=== PATIENT | male | born 1975 | race Caucasian/White ===

== ENCOUNTER → 2016-03-19 | Outpatient (CLI) | payer OTHER ==
[2016-03-19 14:04] LABS: ALBUMIN 3.8 GM/DL (3.2-5.2); ALBUMIN/GLOBULIN RATIO 1.41 (1.00-1.93); ALKALINE PHOSPHATASE 50 U/L (45-117); ALT/SGPT 27 U/L (12-78); ANION GAP 8 MEQ/L (8-16); AST/SGOT 9 U/L (15-37); BILIRUBIN,TOTAL 0.4 MG/DL (0.2-1.0); BLOOD UREA NITROGEN 10 MG/DL (7-18); CALCIUM LEVEL 9.1 MG/DL (8.5-10.1); CARBON DIOXIDE LEVEL 31 MEQ/L (21-32); CHLORIDE LEVEL 108 MEQ/L (98-107); CHOLESTEROL LEVEL 184 MG/DL (<200); CREATININE FOR GFR 0.89 MG/DL (0.70-1.30); GLOMERULAR FILTRATION RATE > 60.0 (>60); GLUCOSE, FASTING 89 MG/DL (70-105); POTASSIUM SERUM 4.5 MEQ/L (3.5-5.1); SODIUM LEVEL 147 MEQ/L (136-145); TOTAL PROTEIN 6.5 GM/DL (6.4-8.2); TRIGLYCERIDES LEVEL 147 MG/DL (<150)
[2016-03-19 14:05] LABS: BASO % 0.6 % (0.0-1.0); EOS # 0.6 K/mm3 (0.0-0.50); LYMPH # 1.5 K/mm3 (1.5-4.5); LYMPH % 24.5 % (24.0-44.0); MEAN CORPUSCULAR HEMOGLOBIN 33.8 pg (27.0-33.0); MEAN CORPUSCULAR HGB CONC 34.8 g/dl (32.0-36.5); MEAN CORPUSCULAR VOLUME 97.3 fl (80.0-96.0); MONO # 0.4 K/mm3 (0.0-0.8); MONO % 7.2 % (0.0-5.0); NEUTROPHILS # 3.4 K/mm3 (1.8-7.7); NEUTROPHILS % 55.1 % (36.0-66.0); RED CELL DISTRIBUTION WIDTH 12.2 % (11.5-14.5); WHITE BLOOD COUNT 6.1 K/mm3 (4.0-10.0)
== END ==
LOC: M LAB 13:08
PROVIDERS: ATTEND Nurse Practitioner Adult Health
DX: Z79.899 Other long term (current) drug therapy (principal)

== ENCOUNTER 2016-04-25 15:43 | Inpatient (IN) | payer OTHER ==
[~2016-04-25] VITALS: Ht 167.6 cm; Wt 85.5 kg
[2016-04-25] MEDS ORDERED: NICOTINE 21MG/24HR 1 EA TRANSDERMAL As Ordered ONE (16:32)
[2016-04-25 16:39] LABS: MEAN CORPUSCULAR HEMOGLOBIN 34.3 pg (27.0-33.0); MEAN CORPUSCULAR HGB CONC 34.9 g/dl (32.0-36.5); MEAN CORPUSCULAR VOLUME 98.1 fl (80.0-96.0); WHITE BLOOD COUNT 7.1 K/mm3 (4.0-10.0)
[2016-04-25 16:51] LABS: CONTROL LINE INT CTR LINE PRESENT; METHADONE URINE NEGATIVE (NEGATIVE); TRICYCLIC ANTIDEPRESS URINE POSITIVE (NEGATIVE)
[2016-04-25 17:11] LABS: ALBUMIN 3.9 GM/DL (3.2-5.2); ALBUMIN/GLOBULIN RATIO 1.26 (1.00-1.93); ALKALINE PHOSPHATASE 72 U/L (45-117); ALT/SGPT 33 U/L (12-78); ANION GAP 9 MEQ/L (8-16); AST/SGOT 16 U/L (15-37); BILIRUBIN,DIRECT < 0.1 MG/DL (0.0-0.2); BILIRUBIN,TOTAL 0.2 MG/DL (0.2-1.0); BLOOD UREA NITROGEN 16 MG/DL (7-18); CALCIUM LEVEL 8.9 MG/DL (8.5-10.1); CARBON DIOXIDE LEVEL 28 MEQ/L (21-32); CHLORIDE LEVEL 107 MEQ/L (98-107); CREATININE FOR GFR 1.01 MG/DL (0.70-1.30); GLOMERULAR FILTRATION RATE > 60.0 (>60); GLUCOSE, FASTING 119 MG/DL (70-105); POTASSIUM SERUM 3.8 MEQ/L (3.5-5.1); SODIUM LEVEL 144 MEQ/L (136-145)
[2016-04-25] MEDS ORDERED: QUET1TAB11 PO (17:40)
[2016-04-25] MEDS ORDERED: DIVA500T3 PO (17:40)
[2016-04-25] MEDS ORDERED: DRIS50002 PO (17:40)
[2016-04-25] MEDS ORDERED: SIMV20TA2 PO (17:40)
[2016-04-25] MEDS ORDERED: VIIB20TA PO (17:40)
--- NOTE | 2016-04-25 19:28 | EDDOCDS ---
Nurse's Notes [facility] Name: Toni Aranda Age: 40 yrs Sex: Male : 1975 Arrival Date: 04/25/2016 Time: 15:43 Bed [facility] Private MD: Lizzette Quarles Diagnosis: Suicidal ideations;Adjustment disorder with depressed mood Presentation: 04/25 15:49 Presenting complaint: Patient states: thoughts of hurting self over past couple weeks. jr Mental Health Triage Level: Level 2: The patient displays active suicidal ideations. Adult Sepsis Screening: The patient does not have new or worsening altered mentation. Patient's respiratory rate is less than 22. Systolic blood pressure is greater than 100. Patient has a qSOFA score of 0- Negative Sepsis Screen. Suicide/Homicide risk assessment- The patient admits to and/or has been reported to be having suicidal ideations. The patient reports that he/she has not been admitted to an inpatient mental health facility in the last 30 days. The patient reports that he/she does not have a recent or current history of substance abuse. The patient reports that he/she has no prior history of suicide attempt and/or organized plan. Status: Patient is not a real estate services coordinator or dependent. Transition of care: patient was not received from another setting of care. 15:49 Acuity: SARAH Level 3 [facility] 15:49 Method Of Arrival: Walkin/Carried/Asstd jr Triage Assessment: 15:52 General: Appears in no apparent distress, Behavior is appropriate for age. Pain: Denies jjr pain. HIV screening NA for this visit Offered previously. Historical: - Allergies: no known allergies; - Home Meds: 1. Viibryd 20 mg oral tab once daily 2. divalproex 500 mg oral Tb24 2 tabs nightly 3. quetiapine 400 mg oral tab nightly 4. simvastatin 20 mg Oral tab 1 tab once daily 5. Vitamin D Oral 50,000 unit weekly - PMHx: Hypercholesterolemia; Depression; mood d/o; - PSHx: none; - Social history: Smoking status: Patient uses tobacco products, current every day smoker. No barriers to communication noted, The patient speaks fluent Telugu. - Family history: Not pertinent. - : The pt / caregiver states he / she is not on anticoagulants. Home medication list is obtained from pill bottles. - Exposure Risk Screening:: None identified. Screenin:07 Screening information is obtained from the patient. Fall risk: No risks identified. jmb Assistance ADL's: requires no assistance with activities of daily living. Abuse/DV Screen: The patient / caregiver reports he/she is: not in a situation that causes fear, pain or injury. Nutritional screening: No deficits noted. home support is adequate. 18:23 Advance Directives: Currently, there is no health care proxy. There is no active DNR jmb order. There is no living will. There is no Power of Frog Catcher. Assessment: 16:07 General: Appears in no apparent distress, Behavior is appropriate for age, cooperative, jmb Patient changed into U clothing. Patient reports that he has a desire to self harm through drinking a lot of alcohol and taking pills to where he falls asleep and does not wake up. Patient admits to alcohol use last evening of a six pack of beer. Patient denies illegal drug use, reports that if he had the money he would love to smoke weed. Patient admits to drinking 4-5 cups of coffee daily. Patient states that his mother just March 18 and since then he feels that "the devil has made a major impact on his life to bring everything down hill". . Pain: Denies pain. Neurological: Level of Consciousness is awake, alert, obeys commands, Oriented to person, place, time, Speech is normal, Facial symmetry appears normal, Facial symmetry: tongue is midline. Cardiovascular: Capillary refill < 3 seconds Heart tones S1 S2 present Pulses are all present. Rhythm is regular. Respiratory: Airway is patent Respiratory effort is even, unlabored, Respiratory pattern is regular, symmetrical, Breath sounds are clear bilaterally. GI: Abdomen is obese, Bowel sounds present X 4 quads. Abd is soft and non tender X 4 quads. Derm: Skin is pink, warm & dry. Musculoskeletal: Range of motion intact in all extremities. 16:07 General: Patient reports having history of admission to [facility] when he was 18 years old [place] and an admission to another inpatient facility in 2011. Patient reports being seen outpatient by [facility] currently that he feels is not helping him. . 17:06 General: Appears in no apparent distress, comfortable, Behavior is appropriate for age, jmb cooperative, Patient sitting in room on stretcher with friend at bedside. No voiced complaints at this time. Nicotine patch applied to right upper arm. . Neurological: Level of Consciousness is awake, alert, obeys commands, Oriented to person, place, time. Respiratory: Airway is patent Respiratory effort is even, unlabored, Respiratory pattern is regular, symmetrical. 17:31 General: Appears in no apparent distress, comfortable, Behavior is appropriate for age, jmb cooperative, Patient laying on stretcher, vital signs obtained. Patient denies discomfort at this time. . Neurological: Level of Consciousness is awake, alert, obeys commands, Oriented to person, place, time, Speech is normal, Facial symmetry appears normal, Facial symmetry: tongue is midline. Cardiovascular: Capillary refill < 3 seconds Heart tones S1 S2 present Pulses are all present. Rhythm is regular. Respiratory: Airway is patent Respiratory effort is even, unlabored, Respiratory pattern is regular, symmetrical. GI: Abdomen is obese, Bowel sounds present X 4 quads. Abd is soft and non tender X 4 quads. Derm: Skin is pink, warm & dry. Musculoskeletal: Range of motion intact in all extremities. 18:23 General: Appears in no apparent distress, comfortable, Behavior is appropriate for age, jmb cooperative, Patient just received meal, finished eating dinner. Currently laying on stretcher, appears comfortable. Patient denies discomfort at this time. . Pain: Denies pain. Neurological: Level of Consciousness is awake, alert, obeys commands, Oriented to person, place, time, Speech is normal. Respiratory: Airway is patent Respiratory effort is even, unlabored, Respiratory pattern is regular, agonal. Derm: Skin is pink, warm & dry. 19:25 General: Appears in no apparent distress, comfortable, Behavior is appropriate for age, mlc cooperative, pleasant. Pain: Denies pain. Neurological: Level of Consciousness is awake, alert, Oriented to person, place, time. Cardiovascular: Capillary refill < 3 seconds Heart tones S1 S2 present. Respiratory: Airway is patent Respiratory effort is even, unlabored, Respiratory pattern is regular, Breath sounds are clear bilaterally. Derm: Skin is pink, warm & dry. Mental Health Eval: 18:14 Mental health consult is initiated at 18:00. Status: The patient is not a rb real estate services coordinator or dependent. [facility] Behavioral Health: The patient is not an established patient of [facility] Behavioral Health. Referral Information: Evaluation referral is generated by Tanja Madrigal. 18:22 Referral Information: The patient was referred for evaluation because Pt presented to ED after texting people stating devil is out to get him, making +SI statements with plan to overdose and +ETOH. Pt reported stressors as Mother 03/2016, GF of 1yr 4 mo broke up with him 04/12/16 very unexpectedly, [facility] forcing Pt to return to work 4 hours a day/5 days a week. Pt is worried he will "f... it up and will lose my place to live". Pt stated cannot get out of the house on time, "Will freeze up, get nervous, can't get motivated". Pt reported stressing over the community garden. According to Pt, have not cleaned or picked up apartment. Pt reported "get nervous over everything". "Have not cleaned or picked up my apartment". "Feels like the devil is out to get me again". "nothing makes me happy". . Subjective: The patients chief complaint is depressed, +SI with plan to overdose on medications and +ETOH.. Delusions are denied. Patient's mood is anxious, dysphoric, hopeless, Hallucinations are denied. Mental Health history: anxiety, depression, schizophrenia, OCD. Mental Health Admissions: [facility] at age 18, and [facility] in [place]- [place]. Current Outpatient Mental Health Services: Psychiatrist / Agency: Sonya Sands \\[place]\\ Jennifer for medication management. Therapist / Agency: Paul Rodriguez . Community Health Specialist / Agency: Annalise Mccracken; ACR Security Test Engineer. Current living environment is The patient currently lives self. Patient presents to Emergency Department with the following symptoms within the past 2 weeks: antisocial behavior, anxiety, depressed mood, feelings of helplessness/hopelessness, non-compliance, paranoia, sleep disturbance - insomnia, suicidal ideation with plan for pills. Substance abuse: Pt denies. Mental status exam: Patients appearance is disheveled Patient's behavior is cooperative, minimally responsive Speech is slow. Affect is flat. Mood is anxious. dysphoric. Hallucinations are denied. Appetite is normal. Memory is good. Energy level is lethargic. Content of thought is depressive. , Thought process is tangential. Cognitive level is oriented to person, place, time and situation Patient's insight is poor. Judgement is poor. Rapport with interviewer is good. Suicidal Ideation present with a plan to kill self by pills. Homicidal ideation is not present. Disposition: Medically cleared for disposition by Clem ONEAL Psychiatric Consult is performed by phone with Dr Sanchez Busby MD. [facility] Admission Criteria: The patient is experiencing suicidal ideation. The patient displays symptoms of severe psychiatric disorder resulting in disordered behavior and significant interference with his / her ability to maintain self care. Severe Anxiety. Psychomotor Retardation. The patient requires continuous observation and/or control to protect self, others or property. The patient requires administration and monitoring of psychoactive medications by skilled medical providers due to the side effects of the psychoactive medications or significant dosage adjustments. Legal Status: Patient's legal status will be Emergency admission: . [place] Safe Act: [place] Safe Act is applicable to this patient. The patient poses a risk to self or other and the Nursing Electrophysiologist has been notified. He/She will enter the patient's data. DSM-V Differential Diagnosis: Schizoaffective Disorder (F25.0) depressive type (F25.1). Pt states preferred pharmacy is: [facility] 18:44 Narrative: Pt legals placed with his belongings. Awaiting: transfer to [facility]. rb Vital Signs: 15:44 BP 161 / 94; Pulse 104; Resp 18; Temp 98.3(O); Pulse Ox 96% on R/A; Weight 86.18 kg; dem1 Height 5 ft. 6 in. (167.64 cm); Pain 0/10; 17:31 BP 133 / 79; Pulse 96; Resp 18; Temp 98.2(O); Pulse Ox 96% on R/A; Pain 0/10; jmb 19:11 BP 134 / 83; Pulse 104; Resp 18; Temp 97.8; Pulse Ox 94% ; Pain 0/10; mas 15:44 Body Mass Index 30.67 (86.18 kg, 167.64 cm) dem1 Vitals: 15:44 Log In Time: April 25, 2016 at 15:42. RN notified that patient meets Red Flag dem1 criteria. ED Course: 15:44 Patient visited by Zhao Yates. dem1 15:44 Lizzette Quarles is Private Physician. dem1 15:44 Patient moved to Waiting dem1 15:52 Triage Initiated jjr 15:52 [address] 16:00 Accompanied by Friend, Patient has correct armband on for positive identification. tmm1 Placed in gown. Placed in psych safe attire. Bed in low position. Side rails up X 1. Security observing. Property removed, inventory done, secured in belongings bag- placed in locked locker. Door closed. Noise minimized. Visitors limited. Psych Safety Check: Location: Psych Room. Visual Assessment: Cooperative. 16:07 Clem Dolan FNP is [facility]. ke 16:07 Patient visited by Clem Dolan FNP. ke 16:07 Patient visited by Clem Dolan FNP. ke 16:07 The patient / caregiver is instructed regarding the plan of care and ED course. jmb 16:07 No IV's were initiated during this patient's visit. No procedures done that require jmb assistance. 16:11 Patient visited by Wagner Maguire RN. jmb 16:15 Psych Safety Check: Location: Psych Room. Visual Assessment: Cooperative. tmm1 16:30 Psych Safety Check: Location: Psych Room. Visual Assessment: Cooperative. tmm1 16:31 Patient visited by Joleen Yu PCA. tmm1 16:32 Acetaminophen Level Sent. jmb 16:32 Basic Metabolic Profile Sent. jmb 16:32 Complete Blood Count Sent. jmb 16:32 Drug Eval Toxicology ED Only Sent. jmb 16:32 Ethyl Alcohol (ethanol) Sent. jmb 16:32 Liver Profile Sent. jmb 16:32 Salicylate Level Sent. jmb 16:32 Thyroid Stimulating Hormone Sent. jmb 16:45 Psych Safety Check: Location: Psych Room. Visual Assessment: Cooperative. tmm1 16:52 Patient visited by Clem Dolan FNP. ke 17:05 [facility] Payment Agreement was scanned into [employer] and attached to record. zo 17:07 Patient visited by Wagner Maguire RN. jmb 17:21 Psych Safety Check: Location: Psych Room. Visual Assessment: Cooperative. tmm1 17:26 Sanchez Busby MD is Hospitalizing Provider. ke 17:33 Patient visited by Wagner Maguire RN. jmb 17:34 Patient visited by Joleen Yu PCA. tmm1 17:34 Psych Safety Check: Location: Psych Room. Visual Assessment: Cooperative. tmm1 17:54 Patient visited by Joleen Yu PCA. tmm1 17:54 Psych Safety Check: Location: Psych Room. Visual Assessment: Cooperative. tmm1 18:02 Patient visited by Joleen Yu PCA. tmm1 18:02 Psych Safety Check: Location: Psych Room. Visual Assessment: Cooperative. tmm1 18:16 Psych Safety Check: Location: Psych Room. Visual Assessment: Cooperative. tmm1 18:17 Patient visited by Joleen Yu PCA. tmm1 18:24 Patient visited by Wagner Maguire RN. jmb 18:31 Patient visited by Joleen Yu PCA. tmm1 18:31 Psych Safety Check: Location: Psych Room. Visual Assessment: Cooperative. tmm1 18:32 PSA Outpatient Referrals was scanned into [employer] and attached to record. cs 18:47 Patient visited by Pedro Rosario. mas 19:05 Patient visited by Pedro Rosario. mas 19:11 [facility] Legal paperwork was scanned into [employer] and attached to record. cs 19:15 Patient visited by Pedro Rosario. [facility] Administered Medications: 16:36 Drug: Nicotine 1 applic [nicotine 21 mg/24 hr daily transdermal patch (1 patches)] [place] Route: Transdermal; Site: right upper arm; 18:25 Follow up: Response: No Adverse Reaction [place] Attachments: 19:11 [facility] Legal paperwork cs Order Results: Lab Order: Acetaminophen Level; SPEC'M 04/25/16 16:29 Test: ACETAMINOPHEN LEVEL; Value: < 2.0; Range: 10.0-30.0; Abnormal: Below low normal; Units: UG/ML; Status: F Lab Order: Basic Metabolic Profile; SPEC'M 04/25/16 16:29 Test: GLUCOSE, FASTING; Value: 119; Range: 70-105; Abnormal: Above high normal; Units: MG/DL; Status: F Test: BLOOD UREA NITROGEN; Value: 16; Range: 7-18; Units: MG/DL; Status: F Test: CREATININE FOR GFR; Value: 1.01; Range: 0.70-1.30; Units: MG/DL; Status: F Test: GLOMERULAR FILTRATION RATE; Value: > 60.0; Range: >60; Status: F Test: SODIUM LEVEL; Value: 144; Range: 136-145; Units: MEQ/L; Status: F Test: POTASSIUM SERUM; Value: 3.8; Range: 3.5-5.1; Units: MEQ/L; Status: F Test: CHLORIDE LEVEL; Value: 107; Range: 98-107; Units: MEQ/L; Status: F Test: CARBON DIOXIDE LEVEL; Value: 28; Range: 21-32; Units: MEQ/L; Status: F Test: ANION GAP; Value: 9; Range: 8-16; Units: MEQ/L; Status: F Test: CALCIUM LEVEL; Value: 8.9; Range: 8.5-10.1; Units: MG/DL; Status: F Test Note: ; Units are mL/min/1.73 m2 Chronic Kidney Disease Staging per NKF: Stage I & II GFR >=60 Normal to Mildly Decreased Stage III GFR 30-59 Moderately Decreased Stage IV GFR 15-29 Severely Decreased Stage V GFR <15 Very Little GFR Left ESRD GFR <15 on POWER SHOVEL OPERATOR Lab Order: Complete Blood Count; [facility] 04/25/16 16:29 Test: WHITE BLOOD COUNT; Value: 7.1; Range: 4.0-10.0; Units: K/mm3; Status: F Test: RED BLOOD COUNT; Value: 4.21; Range: 4.30-6.10; Abnormal: Below low normal; Units: M/mm3; Status: F Test: HEMOGLOBIN; Value: 14.4; Range: 14.0-18.0; Units: g/dl; Status: F Test: HEMATOCRIT; Value: 41.4; Range: 42.0-52.0; Abnormal: Below low normal; Units: %; Status: F Test: MEAN CORPUSCULAR VOLUME; Value: 98.1; Range: 80.0-96.0; Abnormal: Above high normal; Units: fl; Status: F Test: MEAN CORPUSCULAR HEMOGLOBIN; Value: 34.3; Range: 27.0-33.0; Abnormal: Above high normal; Units: pg; Status: F Test: MEAN CORPUSCULAR HGB CONC; Value: 34.9; Range: 32.0-36.5; Units: g/dl; Status: F Test: RED CELL DISTRIBUTION WIDTH; Value: 13.0; Range: 11.5-14.5; Units: %; Status: F Test: PLATELET COUNT, AUTOMATED; Value: 243; Range: 150-450; Units: k/mm3; Status: F Lab Order: Drug Eval Toxicology ED Only; SPEC'M 04/25/16 16:29 Test: AMPHETAMINES LEVEL URINE; Value: NEGATIVE; Range: NEGATIVE; Status: F Test: BARBITURATES URINE; Value: NEGATIVE; Range: NEGATIVE; Status: F Test: BENZODIAZEPINES URINE; Value: NEGATIVE; Range: NEGATIVE; Status: F Test: CANNABINOIDS URINE; Value: NEGATIVE; Range: NEGATIVE; Status: F Test: COCAINE METABOLITE URINE; Value: NEGATIVE; Range: NEGATIVE; Status: F Test: METHADONE URINE; Value: NEGATIVE; Range: NEGATIVE; Status: F Test: OPIATES URINE; Value: NEGATIVE; Range: NEGATIVE; Status: F Test: TRICYCLIC ANTIDEPRESS URINE; Value: POSITIVE; Range: NEGATIVE; Abnormal: Above high normal; Status: F Test Note: ; ALL PRESUMPTIVE POSITIVE FINDINGS ARE UNCONFIRMED NORMAL VALUES THRESHOLD IN NG/ML AMPHETAMINES 1000 METHAMPHETAMINES 1000 BARBITURATES 300 BENZODIAZEPINES 300 CANNABINOIDS (THC) 50 COCAINE METABOLITE 300 METHADONE 300 OPIATES 300 PHENCYCLIDINE 25 TRICYCLIC ANTIDEPRESSANTS 1000 RESULTS ARE FOR MEDICAL PURPOSES ONLY. ALL URINE SPECIMENS WILL BE SAVED FOR 3 DAYS. IF CONFIRMATION OF A PRESUMPTIVE POSTIVE SCREEN RESULT IS DESIRED, CALL CHEMISTRY ([phone]) AND REQUEST URINE TO BE SENT TO REFERENCE LAB. FOR A LIST OF CLOSELY RELATED COMPOUNDS PLEASE CALL THE LAB. Lab Order: Ethyl Alcohol (ethanol); SPEC'M 04/25/16 16:29 Test: ETHYL ALCOHOL (ETHANOL); Value: < 0.003; Range: 0.000-0.010; Units: %; Status: F Lab Order: Liver Profile; SPEC'M 04/25/16 16:29 Test: AST/SGOT; Value: 16; Range: 15-37; Units: U/L; Status: F Test: ALT/SGPT; Value: 33; Range: 12-78; Units: U/L; Status: F Test: ALKALINE PHOSPHATASE; Value: 72; Range: 45-117; Units: U/L; Status: F Test: BILIRUBIN,TOTAL; Value: 0.2; Range: 0.2-1.0; Units: MG/DL; Status: F Test: BILIRUBIN,DIRECT; Value: < 0.1; Range: 0.0-0.2; Units: MG/DL; Status: F Test: TOTAL PROTEIN; Value: 7.0; Range: 6.4-8.2; Units: GM/DL; Status: F Test: ALBUMIN; Value: 3.9; Range: 3.2-5.2; Units: GM/DL; Status: F Test: ALBUMIN/GLOBULIN RATIO; Value: 1.26; Range: 1.00-1.93; Status: F Lab Order: Salicylate Level; SPEC'M 04/25/16 16:29 Test: SALICYLATE LEVEL; Value: 3.7; Range: 5.0-30.0; Abnormal: Below low normal; Units: MG/DL; Status: F Lab Order: Thyroid Stimulating Hormone; SPEC'M 04/25/16 16:29 Test: THYROID STIMULATING HORMONE; Value: 0.157; Range: 0.358-3.740; Abnormal: Below low normal; Units: uIU/ML; Status: F Outcome: 17:27 Decision to Hospitalize by Provider. 19:25 Discharge Assessment: Patient awake, alert and oriented x 3. No cognitive and/or mlc functional deficits noted. Patient verbalized understanding of disposition instructions. patient administered narcotics - no. The following High Risk Discharge criteria are identified: None. Admitted to Psych accompanied by tech, via wheelchair, with chart. Condition: stable. No special radiology studies were completed. Property given to [facility] staff. 19:[address] [facility] Signatures: Ericka Roblero, PSA PSA rb Edwin Jain, PSA PSA Clem Narayan, MATERIAL ANALYST MATERIAL ANALYST Brenda Stringer Jessica, RN RN Pedro Crowe Demeishia dem1 McLear, Joleen, SUPERVISOR MECHANIC BOILERMAKING SUPERVISOR MECHANIC BOILERMAKING tmm1 Wagner Maguire,SAL RN Myla Weber RN RN mlc Corrections: (The following items were deleted from the chart) 17:33 17:06 Neurological: Level of Consciousness is awake, alert, listless, Oriented to jmb person, place, time, jmb MTDD
--- NOTE | 2016-04-25 19:28 | EDDOCDS ---
Physician Documentation [facility] Name: Toni Aranda Age: 40 yrs Sex: Male : 1975 Arrival Date: 04/25/2016 Time: 15:43 Bed BHU1 Private MD: Lizzette Quarles Disposition: 04/25/16 17:27 Hospitalization ordered by Sanchez Busby for Inpatient Admission. Preliminary diagnosis are Suicidal ideations, Adjustment disorder with depressed mood. - Bed requested for Admit. - Status is Inpatient Admission. mlc - Condition is Stable. - Problem is an ongoing problem. - Symptoms have worsened. Historical: - Allergies: no known allergies; - Home Meds: 1. Viibryd 20 mg oral tab once daily 2. divalproex 500 mg oral Tb24 2 tabs nightly 3. quetiapine 400 mg oral tab nightly 4. simvastatin 20 mg Oral tab 1 tab once daily 5. Vitamin D Oral 50,000 unit weekly - PMHx: Hypercholesterolemia; Depression; mood d/o; - PSHx: none; - Social history: Smoking status: Patient uses tobacco products, current every day smoker. No barriers to communication noted, The patient speaks fluent Bahamian. - Family history: Not pertinent. - : The pt / caregiver states he / she is not on anticoagulants. Home medication list is obtained from pill bottles. - Exposure Risk Screening:: None identified. Vital Signs: 04/25 15:44 BP 161 / 94; Pulse 104; Resp 18; Temp 98.3(O); Pulse Ox 96% on R/A; Weight 86.18 kg / dem1 189.99 lbs; Height 5 ft. 6 in. (167.64 cm); Pain 0/10; 17:31 BP 133 / 79; Pulse 96; Resp 18; Temp 98.2(O); Pulse Ox 96% on R/A; Pain 0/10; jmb 19:11 BP 134 / 83; Pulse 104; Resp 18; Temp 97.8; Pulse Ox 94% ; Pain 0/10; mas 15:44 Body Mass Index 30.67 (86.18 kg, 167.64 cm) dem1 MDM: 16:17 Consult PFS/PSA/Tray Delivery Aide ordered. richardson 16:17 Consult PFS/PSA/Tray Delivery Aide: Patient's case requires discussion with on-call richardson Psychiatrist ordered. 16:17 PSA/PFS to call Nursing Insurance Business Analyst, to [place] data [place] if patient ke involuntarily admitted or transferred for SI or HI ordered. 16:17 Confirm accurate psychiatric medication list and times of last dosage ordered. ke 16:17 Detain Pt Until Medically/PFS Cleared ordered. ke 16:17 Nicotine Patch 21 mg/24 hr 1 applic Transdermal once ordered. ke 16:18 Acetaminophen Level Ordered. EDMS 16:18 Basic Metabolic Profile Ordered. EDMS 16:18 Complete Blood Count Ordered. EDMS 16:18 Drug Eval Toxicology ED Only Ordered. EDMS 16:18 Ethyl Alcohol (ethanol) Ordered. EDMS 16:18 Liver Profile Ordered. EDMS 16:18 Salicylate Level Ordered. EDMS 16:18 Thyroid Stimulating Hormone Ordered. EDMS 16:19 REGULAR+DIET ordered. EDMS 17:03 Financial registration complete. zo 17:05 [facility] Payment Agreement was scanned into [employer] and attached to record. zo 17:08 Consult PFS/PSA/Tray Delivery Aide complete. rb 17:25 Acetaminophen Level Reviewed. ke 17:25 Basic Metabolic Profile Reviewed. ke 17:25 Complete Blood Count Reviewed. ke 17:25 Drug Eval Toxicology ED Only Reviewed. ke 17:25 Salicylate Level Reviewed. ke 17:25 Thyroid Stimulating Hormone Reviewed. ke 17:25 Ethyl Alcohol (ethanol) Reviewed. ke 17:25 Liver Profile Reviewed. ke 17:28 BED REQUEST+ADM ordered. EDMS 18:28 Admit to [facility]: ordered. EDMS 18:32 PSA Outpatient Referrals was scanned into [employer] and attached to record. cs 18:45 Consult PFS/PSA/Tray Delivery Aide: Patient's case requires discussion with on-call rb Psychiatrist complete. 18:46 PSA/PFS to call Nursing Insurance Business Analyst, to enter [place] if patient rb involuntarily admitted or transferred for SI or HI complete. 19:11 [facility] Legal paperwork was scanned into [employer] and attached to record. cs Administered Medications: 16:36 Drug: Nicotine 1 applic [nicotine 21 mg/24 hr daily transdermal patch (1 patches)] delroy Route: Transdermal; Site: right upper arm; 18:25 Follow up: Response: No Adverse Reaction jmb Signatures: Dispatcher [employer] EDMS Ericka Roblero, LILIANE PSA rb Edwin Jain, PSA PSA cs Clem Dolan, VIRTUALIZATION CONSULTANT VIRTUALIZATION CONSULTANT Brenda Stringer Jessica, RN RN Wagner Barnard RN RN jmb Booth, Mandy, RN RN mlc The chart was reviewed and I authenticate all verbal orders and agree with the evaluation and treatment provided.Attachments: 17:05 [facility] Payment Agreement zo MTDD
[2016-04-25 19:39] VITALS: BP 136/79
[2016-04-25] MEDS ORDERED: MAALOX 30 ML SUSP *UDC PO PRN (21:00)
[2016-04-25] MEDS ORDERED: traZODone 50 MG TAB PO PRN (21:00)
[2016-04-25] MEDS ORDERED: MOM 30ML SUSPENSION UDC PO PRN (21:00)
[2016-04-26 06:30] VITALS: BP 127/85
[2016-04-26] MEDS: NICOTINE 21MG/24HR 1 EA TRANSDERMAL TD SCH (09:05)
[2016-04-26 18:07] VITALS: BP 124/92
--- NOTE | 2016-04-26 19:17 | HPEPDOC ---
[facility] History & Physical History and Physical DATE OF ADMISSION: Apr 25, 2016 at 19:32 CHIEF COMPLAINT: worsening depression and SI x 2 weeks. HISTORY OF THE PRESENT ILLNESS: Patient is a 40-year-old male with PPHx significant for Schizoaffective d/o presents to [facility] with >2 weeks of reported worsening depressive symptoms associated with SI and plan to OD on EtOH. Patient reports none compliance with Seroquel 400mg his current antipsychotic. Patient reports multiple current psychosocial stressors. He reports a triggering stressor being the of his mother in 03/2016. Patient also identifies his job. 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 He reports no having the "authority to do things, I have to ask Susy". He reports Susy is very hard to get with and this is stressing. Patient puts great pride in this community [employer]. He reports sending multiple emails to administrators for the [employer], with no response. Patient reports this causing increased anxiety and depression. Patient reports this caused relational discord with his current GF. Patient reports decreased motivation, decreased attention to hygiene. In the ED, patient is noted to have expressed SI with plan to OD on alcohol. He denies abuse of alcohol and denies alcohol intoxication played a role in things recent symptoms On interview, patient is calm and cooperative. Patient reports no current SI and reports his mood as "good". Patient is bizarre in his description of stressors. He is superficially bright in affect. Patient reports paranoid ideations that his administrators are "out to get him". Patient reports grandiose delusions of being able to do "magic", and reports he's kept that hidden from his volunteering work supervisors. He denies AH/VH. He denies SI/HI. Patient reports no med s/e's on current dose of Seroquel. He reports good sleep last night. Patient reports good appetite. He denies N/V/C/D. Urination and BM are wnl. He is open to initiation of a new antipsychotic. PAST PSYCHIATRIC HISTORY: Prior Psychiatric Disorder: Schizoaffective d/o, Bipolar type. Outpatient Treatment: [facility], last 04/2013. Suicidal/Self injurious: Denies suicidal behavior. ALLERGIES: No known allergies PRIMARY CARE PROVIDER: Lizzette Quarles, nurse practitioner. SOCIAL HISTORY: He is . Ethyl alcohol (EtOH): He drinks beer 2-3 times a month. Smokes two packs of cigarettes per day. Recreational drug use: None. PAST MEDICAL HISTORY: 1. Hypercholesterolemia. 2. Depression. 3. Mood disorder. PAST SURGICAL HISTORY: Negative. HOME MEDICATIONS: - Depakote 1000 mg by mouth nightly - Seroquel 400 mg by mouth nightly - simvastatin 20 mg by mouth nightly - Viibryd 20 mg by mouth nightly - vitamin D 50,000 units one tablet per week SOCIAL HISTORY: -Recently released from shelter. Reports charge being criminal mischief, patient restrictive on details of this shelter term/charge. -Patient reports mother recently yet family did not tell him. -He was not allowed to stay with step father for . -Long hx of relational discord with his step father. - in 2011, ex- and a daughter in [place], no contact. LABORATORY DATA: Please see below. MENTAL STATUS EXAMINATION: Patient is a 40-year old male, who is pleasant, cooperative, well kempt, moderately built in NAD. Speech: Is normal in rate, volume, and articulation, and is [coherent] and [ spontaneous]. Language skills are [intact]. Thought processes: delusional, tangential Thought content: irrational/logical/illogical/tangential/paranoid Description of abnormal or psychotic thoughts: delusions, no preoccupation with violence, no homicidal or suicidal ideation, but obsessions with his community garden]. Judgment: poor Insight: poor Orientation to [time, place and person]. Recent and remote memory: [intact] Attention span and concentration: good. Language: [Normal]. Fund of knowledge: [adequate]. Mood: expansive/anxious/restrictive. Affect: anxious/hypomania. PROBLEM LIST: 1. perceptual disturbance 2. depression 3. anxiety 4. SI with plan ASSESSMENT: Schizoaffective d/o, bipolar type, MRE manic INITIAL TREATMENT PLAN: 1. Patient was admitted on a [9.39] legal status. 2. Complete history was obtained. 3. With patients permission, family will be contacted and database will be expanded. 4. Patients medication regimen will be reviewed and changed accordingly. 5. Patient will be provided with protected environment. 6. Patient will be treated with individual, group, and milieu therapies. 7. Patient will receive supportive psych-education. 8. Discharge planning will commence immediately. 9. Outpatient follow-up treatment will be strongly recommended. ESTIMATED LENGTH OF STAY: [5]-[7] DAYS. TIME SPENT COUNSELING AND COORDINATING INITIAL CARE: [60] minutes. Medications Scheduled (Viibryd) 20 Mg Tab 20 MG PO QHS (Reported) Divalproex Sodium (Divalproex Sodium Dr) 500 Mg Tab 1,000 MG PO QHS (Reported) Quetiapine Fumerate (Quetiapine Fumarate) 400 Mg Tab 400 MG PO QHS (Reported) Simvastatin (Simvastatin) 20 Mg Tab 20 MG PO QHS (Reported) Vitamin D (Drisdol) 50,000 Unit Cap 50,000 UNIT PO QWEEK (Reported) NO SPECIFIC DAY - STATES HE TOOK A FEW DAYS AGO Allergies Coded Allergies: No Known Allergies (Unverified , 04/25/16) ELOINA TORRES MD Apr 26, 2016 19:17
[2016-04-26] MEDS: DIVALPROEX 250 MG TAB PO SCH (21:17)
[2016-04-26] MEDS: SIMVASTATIN 20 MG TAB PO SCH (21:17)
[2016-04-26] MEDS: QUEtiapine FUMARATE 100 MG TAB PO SCH (21:18)
[2016-04-27 06:37] VITALS: BP 128/71
[2016-04-27] MEDS: NICOTINE 21MG/24HR 1 EA TRANSDERMAL TD SCH (09:05)
--- NOTE | 2016-04-27 14:18 | IPNPDOC ---
[facility] Progress Note Progress Note DATE OF SERVICE: 04/27/16 Subjective: Patient continues to express grandiose and paranoid ideations. He is opposed to increase in his Seroquel as his home dose caused SOB and waking out of his sleep feeling SOB. Patient denies SI/HI and continues to be superficially bright in affect. He expresses on going significant anxiety. Sleep and appetite are fair. Objective: VITAL SIGNS: See below. CURRENT MEDICATIONS: See below. MENTAL STATUS EXAMINATION: Patient is a 40-year old male, who is pleasant, cooperative, well kempt, moderately built in NAD. Speech: Is normal in rate, volume, and articulation, and is [coherent] and [ spontaneous]. Language skills are [intact]. Thought processes: delusional, tangential Thought content: irrational/logical/illogical/tangential/paranoid Description of abnormal or psychotic thoughts: delusions, no preoccupation with violence, no homicidal or suicidal ideation, but obsessions with his community garden]. Judgment: poor Insight: poor Orientation to [time, place and person]. Recent and remote memory: [intact] Attention span and concentration: good. Language: [Normal]. Fund of knowledge: [adequate]. Mood: expansive/anxious/restrictive. Affect: anxious/hypomania. PROBLEM LIST: 1. perceptual disturbance 2. depression 3. anxiety 4. SI with plan ASSESSMENT: Schizoaffective d/o, bipolar type, MRE manic INITIAL TREATMENT PLAN: 1. Patient was admitted on a [9.39] legal status. 2. Complete history was obtained. 3. With patients permission, family will be contacted and database will be expanded. 4. Continue Seroquel at low dose. Patient reports Seroquel 400mg po qhs caused SOB and waking feeling SOB out of his sleep. Patient amenable to initiating a different antipsychotic. Will allow next provider to determine most appropriate antipsychotic to start tomorrow. Due to patient's non-compliance, also initiated patient's Depakote at a lower dose with plan to up-titrate to therapeutic level clinically. 5. Patient will be provided with protected environment. 6. Patient will be treated with individual, group, and milieu therapies. 7. Patient will receive supportive psych-education. 8. Discharge planning will commence immediately. 9. Outpatient follow-up treatment will be strongly recommended. ESTIMATED LENGTH OF STAY: [5]-[7] DAYS. TIME SPENT: [30] minutes. Vital Signs Vital Signs Date Time Temp Pulse Resp B/P Pulse Ox O2 Delivery O2 Flow Rate FiO2 04/27/16 06:37 96.4 77 18 128/71 04/25/16 19:39 97 Room Air Current Medications Current Medications Acetaminophen (Tylenol Tab) 650 mg Q6HP PRN PO HEADACHE or DISCOMFORT; Start at 21:00; Stop 05/25/16 at 20:59 Al Hydrox/Mg Hydrox/Simethicone (Mylanta) 30 ml Q4HP PRN PO HEARTBURN/ INDIGESTION; Start 04/25/16 at 21:00; Stop 05/25/16 at 20:59 Divalproex Sodium (Depakote) 750 mg QHS PO Last administered on 04/26/16 21:17 ; Start 04/26/16 at 21:00; Stop 05/26/16 at 20:59 Home Med (Med Rec Complete!) ASDIRECTED XX ; Start 04/25/16 at 17:45; Stop at 17:45; Status DC Magnesium Hydroxide (Milk Of Magnesia) 30 ml DAILYPRN PRN PO CONSTIPATION; Start 04/25/16 at 21:00; Stop 05/25/16 at 20:59 Nicotine (Nicoderm Cq 21mg) 1 patch DAILY TD Last administered on 04/27/16 09: 05; Start 04/26/16 at 09:00; Stop 05/26/16 at 08:59 Quetiapine Fumarate (SEROquel) 200 mg QHS PO Last administered on 04/26/16 21: 18; Start 04/26/16 at 21:00; Stop 05/26/16 at 20:59 Simvastatin (Zocor) 20 mg QHS PO Last administered on 04/26/16 21:17; Start at 21:00; Stop 05/26/16 at 20:59 Trazodone HCl (Desyrel) 50 mg QHSP PRN PO INSOMNIA Last administered on 22:32; Start 04/25/16 at 21:00; Stop 05/25/16 at 20:59 Allergies Coded Allergies: No Known Allergies (Unverified , 04/25/16) ELOINA TORRES MD Apr 27, 2016 14:18
[2016-04-27 18:00] VITALS: BP 132/87
--- NOTE | 2016-04-27 20:28 | EDDOCDS ---
Physician Documentation [facility] Name: Toni Aranda Age: 40 yrs Sex: Male : 1975 Arrival Date: 04/25/2016 Time: 15:43 Bed BHU1 Private MD: Lizzette Quarles Disposition: 04/25/16 17:27 Hospitalization ordered by Sanchez Busby for Inpatient Admission. Preliminary diagnosis are Suicidal ideations, Adjustment disorder with depressed mood. - Bed requested for Admit. - Status is Inpatient Admission. mlc - Condition is Stable. - Problem is an ongoing problem. - Symptoms have worsened. Historical: - Allergies: no known allergies; - Home Meds: 1. Viibryd 20 mg oral tab once daily 2. divalproex 500 mg oral Tb24 2 tabs nightly 3. quetiapine 400 mg oral tab nightly 4. simvastatin 20 mg Oral tab 1 tab once daily 5. Vitamin D Oral 50,000 unit weekly - PMHx: Hypercholesterolemia; Depression; mood d/o; - PSHx: none; - Social history: Smoking status: Patient uses tobacco products, current every day smoker. No barriers to communication noted, The patient speaks fluent Belizean. - Family history: Not pertinent. - : The pt / caregiver states he / she is not on anticoagulants. Home medication list is obtained from pill bottles. - Exposure Risk Screening:: None identified. Vital Signs: 04/25 15:44 BP 161 / 94; Pulse 104; Resp 18; Temp 98.3(O); Pulse Ox 96% on R/A; Weight 86.18 kg / dem1 189.99 lbs; Height 5 ft. 6 in. (167.64 cm); Pain 0/10; 17:31 BP 133 / 79; Pulse 96; Resp 18; Temp 98.2(O); Pulse Ox 96% on R/A; Pain 0/10; jmb 19:11 BP 134 / 83; Pulse 104; Resp 18; Temp 97.8; Pulse Ox 94% ; Pain 0/10; mas 15:44 Body Mass Index 30.67 (86.18 kg, 167.64 cm) dem1 MDM: 16:17 Consult PFS/PSA/Accounting System Expert ordered. richardson 16:17 Consult PFS/PSA/Accounting System Expert: Patient's case requires discussion with on-call richardson Psychiatrist ordered. 16:17 PSA/PFS to call Nursing Resin Coater, to enter [place] data [place] if patient ke involuntarily admitted or transferred for SI or HI ordered. 16:17 Confirm accurate psychiatric medication list and times of last dosage ordered. ke 16:17 Detain Pt Until Medically/PFS Cleared ordered. ke 16:17 Nicotine Patch 21 mg/24 hr 1 applic Transdermal once ordered. ke 16:18 Acetaminophen Level Ordered. EDMS 16:18 Basic Metabolic Profile Ordered. EDMS 16:18 Complete Blood Count Ordered. EDMS 16:18 Drug Eval Toxicology ED Only Ordered. EDMS 16:18 Ethyl Alcohol (ethanol) Ordered. EDMS 16:18 Liver Profile Ordered. EDMS 16:18 Salicylate Level Ordered. EDMS 16:18 Thyroid Stimulating Hormone Ordered. EDMS 16:19 REGULAR+DIET ordered. EDMS 17:03 Financial registration complete. zo 17:05 [facility] Payment Agreement was scanned into [employer] and attached to record. zo 17:08 Consult PFS/PSA/Accounting System Expert complete. rb 17:25 Acetaminophen Level Reviewed. ke 17:25 Basic Metabolic Profile Reviewed. ke 17:25 Complete Blood Count Reviewed. ke 17:25 Drug Eval Toxicology ED Only Reviewed. ke 17:25 Salicylate Level Reviewed. ke 17:25 Thyroid Stimulating Hormone Reviewed. ke 17:25 Ethyl Alcohol (ethanol) Reviewed. ke 17:25 Liver Profile Reviewed. ke 17:28 BED REQUEST+ADM ordered. EDMS 18:28 Admit to [facility]: ordered. EDMS 18:32 PSA Outpatient Referrals was scanned into [employer] and attached to record. cs 18:45 Consult PFS/PSA/Accounting System Expert: Patient's case requires discussion with on-call rb Psychiatrist complete. 18:46 PSA/PFS to call Nursing Resin Coater, to enter [place] if patient rb involuntarily admitted or transferred for SI or HI complete. 19:11 [facility] Legal paperwork was scanned into [employer] and attached to record. cs 21:09 T-Sheet-- Draft Copy was scanned into [employer] and attached to record. hemantr Administered Medications: 16:36 Drug: Nicotine 1 applic [nicotine 21 mg/24 hr daily transdermal patch (1 patches)] delroy Route: Transdermal; Site: right upper arm; 18:25 Follow up: Response: No Adverse Reaction jmjoselin Signatures: Dispatcher [employer] EDMS Ericka Roblero, PSA PSA rb Edwin Jain, PSA PSA cs Clem Dolan, TERRESTRIAL ECOLOGIST TERRESTRIAL ECOLOGIST Brenda Stringer Jessica RN RN Wagner Barnard RN RN jmb Booth, Mandy, RN RN mlc Redder, Kathie klr The chart was reviewed and I authenticate all verbal orders and agree with the evaluation and treatment provided.Attachments: 17:05 [facility] Payment Agreement zo 21:09 T-Sheet-- Draft Copy klportia Chart Complete MTDD
--- NOTE | 2016-04-27 20:29 | EDDOCDS ---
Physician Documentation [facility] Name: Toni Aranda Age: 40 yrs Sex: Male : 1975 Arrival Date: 04/25/2016 Time: 15:43 Bed BHU1 Private MD: Lizzette Quarles Disposition: 04/25/16 17:27 Hospitalization ordered by Sanchez Busby for Inpatient Admission. Preliminary diagnosis are Suicidal ideations, Adjustment disorder with depressed mood. - Bed requested for Admit. - Status is Inpatient Admission. mlc - Condition is Stable. - Problem is an ongoing problem. - Symptoms have worsened. Historical: - Allergies: no known allergies; - Home Meds: 1. Viibryd 20 mg oral tab once daily 2. divalproex 500 mg oral Tb24 2 tabs nightly 3. quetiapine 400 mg oral tab nightly 4. simvastatin 20 mg Oral tab 1 tab once daily 5. Vitamin D Oral 50,000 unit weekly - PMHx: Hypercholesterolemia; Depression; mood d/o; - PSHx: none; - Social history: Smoking status: Patient uses tobacco products, current every day smoker. No barriers to communication noted, The patient speaks fluent Palauan. - Family history: Not pertinent. - : The pt / caregiver states he / she is not on anticoagulants. Home medication list is obtained from pill bottles. - Exposure Risk Screening:: None identified. Vital Signs: 04/25 15:44 BP 161 / 94; Pulse 104; Resp 18; Temp 98.3(O); Pulse Ox 96% on R/A; Weight 86.18 kg / dem1 189.99 lbs; Height 5 ft. 6 in. (167.64 cm); Pain 0/10; 17:31 BP 133 / 79; Pulse 96; Resp 18; Temp 98.2(O); Pulse Ox 96% on R/A; Pain 0/10; jmb 19:11 BP 134 / 83; Pulse 104; Resp 18; Temp 97.8; Pulse Ox 94% ; Pain 0/10; mas 15:44 Body Mass Index 30.67 (86.18 kg, 167.64 cm) dem1 MDM: 16:17 Consult PFS/PSA/Fast Food Shift Supervisor ordered. richardson 16:17 Consult PFS/PSA/Fast Food Shift Supervisor: Patient's case requires discussion with on-call richardson Psychiatrist ordered. 16:17 PSA/PFS to call Nursing Buffer Copper, to [place] if patient ke involuntarily admitted or transferred for SI or HI ordered. 16:17 Confirm accurate psychiatric medication list and times of last dosage ordered. ke 16:17 Detain Pt Until Medically/PFS Cleared ordered. ke 16:17 Nicotine Patch 21 mg/24 hr 1 applic Transdermal once ordered. ke 16:18 Acetaminophen Level Ordered. EDMS 16:18 Basic Metabolic Profile Ordered. EDMS 16:18 Complete Blood Count Ordered. EDMS 16:18 Drug Eval Toxicology ED Only Ordered. EDMS 16:18 Ethyl Alcohol (ethanol) Ordered. EDMS 16:18 Liver Profile Ordered. EDMS 16:18 Salicylate Level Ordered. EDMS 16:18 Thyroid Stimulating Hormone Ordered. EDMS 16:19 REGULAR+DIET ordered. EDMS 17:03 Financial registration complete. zo 17:05 [facility] Payment Agreement was scanned into [employer] and attached to record. zo 17:08 Consult PFS/PSA/Fast Food Shift Supervisor complete. rb 17:25 Acetaminophen Level Reviewed. ke 17:25 Basic Metabolic Profile Reviewed. ke 17:25 Complete Blood Count Reviewed. ke 17:25 Drug Eval Toxicology ED Only Reviewed. ke 17:25 Salicylate Level Reviewed. ke 17:25 Thyroid Stimulating Hormone Reviewed. ke 17:25 Ethyl Alcohol (ethanol) Reviewed. ke 17:25 Liver Profile Reviewed. ke 17:28 BED REQUEST+ADM ordered. EDMS 18:28 Admit to [facility]: ordered. EDMS 18:32 PSA Outpatient Referrals was scanned into [employer] and attached to record. cs 18:45 Consult PFS/PSA/Fast Food Shift Supervisor: Patient's case requires discussion with on-call rb Psychiatrist complete. 18:46 PSA/PFS to call Nursing Buffer Copper, to enter [place] if patient rb involuntarily admitted or transferred for SI or HI complete. 19:11 [facility] Legal paperwork was scanned into [employer] and attached to record. cs 21:09 T-Sheet-- Draft Copy was scanned into [employer] and attached to record. hemantr Administered Medications: 16:36 Drug: Nicotine 1 applic [nicotine 21 mg/24 hr daily transdermal patch (1 patches)] delroy Route: Transdermal; Site: right upper arm; 18:25 Follow up: Response: No Adverse Reaction jmjoselin Signatures: Dispatcher [employer] EDMS Ericka Roblero, PSA PSA rb Edwin Jain, PSA PSA cs Clem Dolan, SILK FINISHER SILK FINISHER Brenda Stringer Jessica RN RN Wagner Barnard RN RN jmb Booth, Mandy, RN RN mlc Redder, Kathie klr The chart was reviewed and I authenticate all verbal orders and agree with the evaluation and treatment provided.Attachments: 17:05 [facility] Payment Agreement zo 21:09 T-Sheet-- Draft Copy klportia Chart Complete MTDD
--- NOTE | 2016-04-27 20:29 | EDDOCDS ---
Nurse's Notes [facility] Name: Toni Aranda Age: 40 yrs Sex: Male : 1975 Arrival Date: 04/25/2016 Time: 15:43 Bed [facility] Private MD: Lizzette Quarles Diagnosis: Suicidal ideations;Adjustment disorder with depressed mood Presentation: 04/25 15:49 Presenting complaint: Patient states: thoughts of hurting self over past couple weeks. jr Mental Health Triage Level: Level 2: The patient displays active suicidal ideations. Adult Sepsis Screening: The patient does not have new or worsening altered mentation. Patient's respiratory rate is less than 22. Systolic blood pressure is greater than 100. Patient has a qSOFA score of 0- Negative Sepsis Screen. Suicide/Homicide risk assessment- The patient admits to and/or has been reported to be having suicidal ideations. The patient reports that he/she has not been admitted to an inpatient mental health facility in the last 30 days. The patient reports that he/she does not have a recent or current history of substance abuse. The patient reports that he/she has no prior history of suicide attempt and/or organized plan. Status: Patient is not a service unit operator or dependent. Transition of care: patient was not received from another setting of care. 15:49 Acuity: SARAH Level 3 [facility] 15:49 Method Of Arrival: Walkin/Carried/Asstd jr Triage Assessment: 15:52 General: Appears in no apparent distress, Behavior is appropriate for age. Pain: Denies jjr pain. HIV screening NA for this visit Offered previously. Historical: - Allergies: no known allergies; - Home Meds: 1. Viibryd 20 mg oral tab once daily 2. divalproex 500 mg oral Tb24 2 tabs nightly 3. quetiapine 400 mg oral tab nightly 4. simvastatin 20 mg Oral tab 1 tab once daily 5. Vitamin D Oral 50,000 unit weekly - PMHx: Hypercholesterolemia; Depression; mood d/o; - PSHx: none; - Social history: Smoking status: Patient uses tobacco products, current every day smoker. No barriers to communication noted, The patient speaks fluent Albanian. - Family history: Not pertinent. - : The pt / caregiver states he / she is not on anticoagulants. Home medication list is obtained from pill bottles. - Exposure Risk Screening:: None identified. Screenin:07 Screening information is obtained from the patient. Fall risk: No risks identified. jmb Assistance ADL's: requires no assistance with activities of daily living. Abuse/DV Screen: The patient / caregiver reports he/she is: not in a situation that causes fear, pain or injury. Nutritional screening: No deficits noted. home support is adequate. 18:23 Advance Directives: Currently, there is no health care proxy. There is no active DNR jmb order. There is no living will. There is no Power of Hardware Assembler. Assessment: 16:07 General: Appears in no apparent distress, Behavior is appropriate for age, cooperative, jmb Patient changed into U clothing. Patient reports that he has a desire to self harm through drinking a lot of alcohol and taking pills to where he falls asleep and does not wake up. Patient admits to alcohol use last evening of a six pack of beer. Patient denies illegal drug use, reports that if he had the money he would love to smoke weed. Patient admits to drinking 4-5 cups of coffee daily. Patient states that his mother just March 18 and since then he feels that "the devil has made a major impact on his life to bring everything down hill". . Pain: Denies pain. Neurological: Level of Consciousness is awake, alert, obeys commands, Oriented to person, place, time, Speech is normal, Facial symmetry appears normal, Facial symmetry: tongue is midline. Cardiovascular: Capillary refill < 3 seconds Heart tones S1 S2 present Pulses are all present. Rhythm is regular. Respiratory: Airway is patent Respiratory effort is even, unlabored, Respiratory pattern is regular, symmetrical, Breath sounds are clear bilaterally. GI: Abdomen is obese, Bowel sounds present X 4 quads. Abd is soft and non tender X 4 quads. Derm: Skin is pink, warm & dry. Musculoskeletal: Range of motion intact in all extremities. 16:07 General: Patient reports having history of admission to [facility] [place] he was 18 [place] old [place] and an admission to another inpatient facility in 2011. Patient reports being seen outpatient by [facility] currently that he feels is not helping him. . 17:06 General: Appears in no apparent distress, comfortable, Behavior is appropriate for age, jmb cooperative, Patient sitting in room on stretcher with friend at bedside. No voiced complaints at this time. Nicotine patch applied to right upper arm. . Neurological: Level of Consciousness is awake, alert, obeys commands, Oriented to person, place, time. Respiratory: Airway is patent Respiratory effort is even, unlabored, Respiratory pattern is regular, symmetrical. 17:31 General: Appears in no apparent distress, comfortable, Behavior is appropriate for age, jmb cooperative, Patient laying on stretcher, vital signs obtained. Patient denies discomfort at this time. . Neurological: Level of Consciousness is awake, alert, obeys commands, Oriented to person, place, time, Speech is normal, Facial symmetry appears normal, Facial symmetry: tongue is midline. Cardiovascular: Capillary refill < 3 seconds Heart tones S1 S2 present Pulses are all present. Rhythm is regular. Respiratory: Airway is patent Respiratory effort is even, unlabored, Respiratory pattern is regular, symmetrical. GI: Abdomen is obese, Bowel sounds present X 4 quads. Abd is soft and non tender X 4 quads. Derm: Skin is pink, warm & dry. Musculoskeletal: Range of motion intact in all extremities. 18:23 General: Appears in no apparent distress, comfortable, Behavior is appropriate for age, jmb cooperative, Patient just received meal, finished eating dinner. Currently laying on stretcher, appears comfortable. Patient denies discomfort at this time. . Pain: Denies pain. Neurological: Level of Consciousness is awake, alert, obeys commands, Oriented to person, place, time, Speech is normal. Respiratory: Airway is patent Respiratory effort is even, unlabored, Respiratory pattern is regular, agonal. Derm: Skin is pink, warm & dry. 19:25 General: Appears in no apparent distress, comfortable, Behavior is appropriate for age, mlc cooperative, pleasant. Pain: Denies pain. Neurological: Level of Consciousness is awake, alert, Oriented to person, place, time. Cardiovascular: Capillary refill < 3 seconds Heart tones S1 S2 present. Respiratory: Airway is patent Respiratory effort is even, unlabored, Respiratory pattern is regular, Breath sounds are clear bilaterally. Derm: Skin is pink, warm & dry. Mental Health Eval: 18:14 Mental health consult is initiated at 18:00. Status: The patient is not a rb service unit operator or dependent. [facility] Behavioral Health: The patient is not an established patient of [facility] Behavioral Health. Referral Information: Evaluation referral is generated by Tanja Madrigal. 18:22 Referral Information: The patient was referred for evaluation because Pt presented to ED after texting people stating devil is out to get him, making +SI statements with plan to overdose and +ETOH. Pt reported stressors as Mother 03/2016, GF of 1yr 4 mo broke up with him 04/12/16 very unexpectedly, [facility] forcing Pt to return to work 4 hours a day/5 days a week. Pt is worried he will "f... it up and will lose my place to live". Pt stated cannot get out of the house on time, "Will freeze up, get nervous, can't get motivated". Pt reported stressing over the community garden. According to Pt, have not cleaned or picked up apartment. Pt reported "get nervous over everything". "Have not cleaned or picked up my apartment". "Feels like the devil is out to get me again". "nothing makes me happy". . Subjective: The patients chief complaint is depressed, +SI with plan to overdose on medications and +ETOH.. Delusions are denied. Patient's mood is anxious, dysphoric, hopeless, Hallucinations are denied. Mental Health history: anxiety, depression, schizophrenia, OCD. Mental Health Admissions[place] [facility] [place] 18, and [facility] in [place] [facility]. Current Outpatient Mental Health Services: Psychiatrist / Agency: Sonya Sands \\[place]\\ Jennifer for medication management. Therapist / Agency: Paul Rodriguez . Rail Car Maintenance Mechanic / Agency: Annalise Mccracken; ACR Liner Reroll Tender. Current living environment is The patient currently lives self. Patient presents to Emergency Department with the following symptoms within the past 2 weeks: antisocial behavior, anxiety, depressed mood, feelings of helplessness/hopelessness, non-compliance, paranoia, sleep disturbance - insomnia, suicidal ideation with plan for pills. Substance abuse: Pt denies. Mental status exam: Patients appearance is disheveled Patient's behavior is cooperative, minimally responsive Speech is slow. Affect is flat. Mood is anxious. dysphoric. Hallucinations are denied. Appetite is normal. Memory is good. Energy level is lethargic. Content of thought is depressive. , Thought process is tangential. Cognitive level is oriented to person, place, time and situation Patient's insight is poor. Judgement is poor. Rapport with interviewer is good. Suicidal Ideation present with a plan to kill self by pills. Homicidal ideation is not present. Disposition: Medically cleared for disposition by Clem ONEAL Psychiatric Consult is performed by phone with Dr Sanchez Busby MD. [facility] Admission Criteria: The patient is experiencing suicidal ideation. The patient displays symptoms of severe psychiatric disorder resulting in disordered behavior and significant interference with his / her ability to maintain self care. Severe Anxiety. Psychomotor Retardation. The patient requires continuous observation and/or control to protect self, others or property. The patient requires administration and monitoring of psychoactive medications by skilled medical providers due to the side effects of the psychoactive medications or significant dosage adjustments. Legal Status: Patient's legal status will be Emergency admission: . [place] Safe Act: [place] Safe Act is applicable to this patient. The patient poses a risk to self or other and the Nursing Resident Care Assistant has been notified. He/She will enter the patient's data. DSM-V Differential Diagnosis: Schizoaffective Disorder (F25.0) depressive type (F25.1). Pt states preferred pharmacy is: [facility] 18:44 Narrative: Pt legals placed with his belongings. Awaiting: transfer to [facility]. rb Vital Signs: 15:44 BP 161 / 94; Pulse 104; Resp 18; Temp 98.3(O); Pulse Ox 96% on R/A; Weight 86.18 kg; dem1 Height 5 ft. 6 in. (167.64 cm); Pain 0/10; 17:31 BP 133 / 79; Pulse 96; Resp 18; Temp 98.2(O); Pulse Ox 96% on R/A; Pain 0/10; jmb 19:11 BP 134 / 83; Pulse 104; Resp 18; Temp 97.8; Pulse Ox 94% ; Pain 0/10; mas 15:44 Body Mass Index 30.67 (86.18 kg, 167.64 cm) dem1 Vitals: 15:44 Log In Time: April 25, 2016 at 15:42. RN notified that patient meets Red Flag dem1 criteria. ED Course: 15:44 Patient visited by Zhao Yates. dem1 15:44 Lizzette Quarles is Private Physician. dem1 15:44 Patient moved to Waiting dem1 15:52 Triage Initiated jjr 15:52 [address] 16:00 Accompanied by Friend, Patient has correct armband on for positive identification. tmm1 Placed in gown. Placed in psych safe attire. Bed in low position. Side rails up X 1. Security observing. Property removed, inventory done, secured in belongings bag- placed in locked locker. Door closed. Noise minimized. Visitors limited. Psych Safety Check: Location: Psych Room. Visual Assessment: Cooperative. 16:07 Clem Dolan FNP is [facility]. ke 16:07 Patient visited by Clem Dolan FNP. ke 16:07 Patient visited by Clem Dolan FNP. ke 16:07 The patient / caregiver is instructed regarding the plan of care and ED course. jmb 16:07 No IV's were initiated during this patient's visit. No procedures done that require jmb assistance. 16:11 Patient visited by Wagner Maguire RN. jmb 16:15 Psych Safety Check: Location: Psych Room. Visual Assessment: Cooperative. tmm1 16:30 Psych Safety Check: Location: Psych Room. Visual Assessment: Cooperative. tmm1 16:31 Patient visited by Joleen Yu PCA. tmm1 16:32 Acetaminophen Level Sent. jmb 16:32 Basic Metabolic Profile Sent. jmb 16:32 Complete Blood Count Sent. jmb 16:32 Drug Eval Toxicology ED Only Sent. jmb 16:32 Ethyl Alcohol (ethanol) Sent. jmb 16:32 Liver Profile Sent. jmb 16:32 Salicylate Level Sent. jmb 16:32 Thyroid Stimulating Hormone Sent. jmb 16:45 Psych Safety Check: Location: Psych Room. Visual Assessment: Cooperative. tmm1 16:52 Patient visited by Clem Dolan FNP. ke 17:05 [facility] Payment Agreement was scanned into Retarget[employer] and attached to record. zo 17:07 Patient visited by Wagner Maguire RN. jmb 17:21 Psych Safety Check: Location: Psych Room. Visual Assessment: Cooperative. tmm1 17:26 Sanchez Busby MD is Hospitalizing Provider. ke 17:33 Patient visited by Wagner Maguire RN. jmb 17:34 Patient visited by Joleen Yu PCA. tmm1 17:34 Psych Safety Check: Location: Psych Room. Visual Assessment: Cooperative. tmm1 17:54 Patient visited by Joleen Yu PCA. tmm1 17:54 Psych Safety Check: Location: Psych Room. Visual Assessment: Cooperative. tmm1 18:02 Patient visited by Joleen Yu PCA. tmm1 18:02 Psych Safety Check: Location: Psych Room. Visual Assessment: Cooperative. tmm1 18:16 Psych Safety Check: Location: Psych Room. Visual Assessment: Cooperative. tmm1 18:17 Patient visited by Joleen Yu PCA. tmm1 18:24 Patient visited by Wagner Maguire RN. jmb 18:31 Patient visited by Joleen Yu PCA. tmm1 18:31 Psych Safety Check: Location: Psych Room. Visual Assessment: Cooperative. tmm1 18:32 PSA Outpatient Referrals was scanned into Ret[employer] and attached to record. cs 18:47 Patient visited by Pedro Rosario. mas 19:05 Patient visited by Pedro Rosario. mas 19:11 [facility] Legal paperwork was scanned into Ret[employer] and attached to record. cs 19:15 Patient visited by Pedro Rosario. mas 21:09 T-Sheet-- Draft Copy was scanned into Ret[employer] and attached to record. klr Administered Medications: 16:36 Drug: Nicotine 1 applic [nicotine 21 mg/24 hr daily transdermal patch (1 patches)] [place] Route: Transdermal; Site: right upper arm; 18:25 Follow up: Response: No Adverse Reaction [place] Attachments: 19:11 [facility] Legal paperwork cs Order Results: Lab Order: Acetaminophen Level; SPEC'M 04/25/16 16:29 Test: ACETAMINOPHEN LEVEL; Value: < 2.0; Range: 10.0-30.0; Abnormal: Below low normal; Units: UG/ML; Status: F Lab Order: Basic Metabolic Profile; SPEC'M 04/25/16 16:29 Test: GLUCOSE, FASTING; Value: 119; Range: 70-105; Abnormal: Above high normal; Units: MG/DL; Status: F Test: BLOOD UREA NITROGEN; Value: 16; Range: 7-18; Units: MG/DL; Status: F Test: CREATININE FOR GFR; Value: 1.01; Range: 0.70-1.30; Units: MG/DL; Status: F Test: GLOMERULAR FILTRATION RATE; Value: > 60.0; Range: >60; Status: F Test: SODIUM LEVEL; Value: 144; Range: 136-145; Units: MEQ/L; Status: F Test: POTASSIUM SERUM; Value: 3.8; Range: 3.5-5.1; Units: MEQ/L; Status: F Test: CHLORIDE LEVEL; Value: 107; Range: 98-107; Units: MEQ/L; Status: F Test: CARBON DIOXIDE LEVEL; Value: 28; Range: 21-32; Units: MEQ/L; Status: F Test: ANION GAP; Value: 9; Range: 8-16; Units: MEQ/L; Status: F Test: CALCIUM LEVEL; Value: 8.9; Range: 8.5-10.1; Units: MG/DL; Status: F Test Note: ; Units are mL/min/1.73 m2 Chronic Kidney Disease Staging per NKF: Stage I & II GFR >=60 Normal to Mildly Decreased Stage III GFR 30-59 Moderately Decreased Stage IV GFR 15-29 Severely Decreased Stage V GFR <15 Very Little GFR Left ESRD GFR <15 on TRUCK TERMINAL MANAGER Lab Order: Complete Blood Count; [facility] 04/25/16 16:29 Test: WHITE BLOOD COUNT; Value: 7.1; Range: 4.0-10.0; Units: K/mm3; Status: F Test: RED BLOOD COUNT; Value: 4.21; Range: 4.30-6.10; Abnormal: Below low normal; Units: M/mm3; Status: F Test: HEMOGLOBIN; Value: 14.4; Range: 14.0-18.0; Units: g/dl; Status: F Test: HEMATOCRIT; Value: 41.4; Range: 42.0-52.0; Abnormal: Below low normal; Units: %; Status: F Test: MEAN CORPUSCULAR VOLUME; Value: 98.1; Range: 80.0-96.0; Abnormal: Above high normal; Units: fl; Status: F Test: MEAN CORPUSCULAR HEMOGLOBIN; Value: 34.3; Range: 27.0-33.0; Abnormal: Above high normal; Units: pg; Status: F Test: MEAN CORPUSCULAR HGB CONC; Value: 34.9; Range: 32.0-36.5; Units: g/dl; Status: F Test: RED CELL DISTRIBUTION WIDTH; Value: 13.0; Range: 11.5-14.5; Units: %; Status: F Test: PLATELET COUNT, AUTOMATED; Value: 243; Range: 150-450; Units: k/mm3; Status: F Lab Order: Drug Eval Toxicology ED Only; SPEC'M 04/25/16 16:29 Test: AMPHETAMINES LEVEL URINE; Value: NEGATIVE; Range: NEGATIVE; Status: F Test: BARBITURATES URINE; Value: NEGATIVE; Range: NEGATIVE; Status: F Test: BENZODIAZEPINES URINE; Value: NEGATIVE; Range: NEGATIVE; Status: F Test: CANNABINOIDS URINE; Value: NEGATIVE; Range: NEGATIVE; Status: F Test: COCAINE METABOLITE URINE; Value: NEGATIVE; Range: NEGATIVE; Status: F Test: METHADONE URINE; Value: NEGATIVE; Range: NEGATIVE; Status: F Test: OPIATES URINE; Value: NEGATIVE; Range: NEGATIVE; Status: F Test: TRICYCLIC ANTIDEPRESS URINE; Value: POSITIVE; Range: NEGATIVE; Abnormal: Above high normal; Status: F Test Note: ; ALL PRESUMPTIVE POSITIVE FINDINGS ARE UNCONFIRMED NORMAL VALUES THRESHOLD IN NG/ML AMPHETAMINES 1000 METHAMPHETAMINES 1000 BARBITURATES 300 BENZODIAZEPINES 300 CANNABINOIDS (THC) 50 COCAINE METABOLITE 300 METHADONE 300 OPIATES 300 PHENCYCLIDINE 25 TRICYCLIC ANTIDEPRESSANTS 1000 RESULTS ARE FOR MEDICAL PURPOSES ONLY. ALL URINE SPECIMENS WILL BE SAVED FOR 3 DAYS. IF CONFIRMATION OF A PRESUMPTIVE POSTIVE SCREEN RESULT IS DESIRED, CALL CHEMISTRY ([phone]) AND REQUEST URINE TO BE SENT TO REFERENCE LAB. FOR A LIST OF CLOSELY RELATED COMPOUNDS PLEASE CALL THE LAB. Lab Order: Ethyl Alcohol (ethanol); SPEC'M 04/25/16 16:29 Test: ETHYL ALCOHOL (ETHANOL); Value: < 0.003; Range: 0.000-0.010; Units: %; Status: F Lab Order: Liver Profile; SPEC'M 04/25/16 16:29 Test: AST/SGOT; Value: 16; Range: 15-37; Units: U/L; Status: F Test: ALT/SGPT; Value: 33; Range: 12-78; Units: U/L; Status: F Test: ALKALINE PHOSPHATASE; Value: 72; Range: 45-117; Units: U/L; Status: F Test: BILIRUBIN,TOTAL; Value: 0.2; Range: 0.2-1.0; Units: MG/DL; Status: F Test: BILIRUBIN,DIRECT; Value: < 0.1; Range: 0.0-0.2; Units: MG/DL; Status: F Test: TOTAL PROTEIN; Value: 7.0; Range: 6.4-8.2; Units: GM/DL; Status: F Test: ALBUMIN; Value: 3.9; Range: 3.2-5.2; Units: GM/DL; Status: F Test: ALBUMIN/GLOBULIN RATIO; Value: 1.26; Range: 1.00-1.93; Status: F Lab Order: Salicylate Level; SPEC'M 04/25/16 16:29 Test: SALICYLATE LEVEL; Value: 3.7; Range: 5.0-30.0; Abnormal: Below low normal; Units: MG/DL; Status: F Lab Order: Thyroid Stimulating Hormone; SPEC'M 04/25/16 16:29 Test: THYROID STIMULATING HORMONE; Value: 0.157; Range: 0.358-3.740; Abnormal: Below low normal; Units: uIU/ML; Status: F Outcome: 17:27 Decision to Hospitalize by Provider. richardson 19:25 Discharge Assessment: Patient awake, alert and oriented x 3. No cognitive and/or [facility] functional deficits noted. Patient verbalized understanding of disposition instructions. patient administered narcotics - no. The following High Risk Discharge criteria are identified: None. Admitted to Psych accompanied by tech, via wheelchair, with chart. Condition: stable. No special radiology studies were completed. Property given to [facility] staff. 19:27 Patient left the ED. [facility] Signatures: Ericka Roblero, PSA PSA rb Edwin Jain, PSA PSA Clem Narayan, MANAGER TRAINING AND DEVELOPMENT MANAGER TRAINING AND DEVELOPMENT Brenda Stringer Jessica RN RN Pedro Crowe Demeishia dem1 McLear, Joleen, ARTS AND CRAFTS INSTRUCTOR ARTS AND CRAFTS INSTRUCTOR tmm1 Wagner Maguire RN RN jmb Booth, Mandy, RN RN mlc Redder, Kathie klr Corrections: (The following items were deleted from the chart) 17:33 17:06 Neurological: Level of Consciousness is awake, alert, listless, Oriented to [facility] person, place, time, b Chart Complete MTDD
[2016-04-27] MEDS: SIMVASTATIN 20 MG TAB PO SCH (21:40)
[2016-04-27] MEDS: DIVALPROEX 250 MG TAB PO SCH (21:40)
[2016-04-27] MEDS: QUEtiapine FUMARATE 100 MG TAB PO SCH (21:41)
--- NOTE | 2016-04-28 03:00 | HPE ---
DATE OF ADMISSION: 04/25/2016 HISTORY OF PRESENT ILLNESS: Please refer to psychiatric history and evaluation for further details on this admission. This examination and history is intended for medical issues, which may need treatment, followup or consult on this 40-year-old male. ALLERGIES: No known allergies. PRIMARY CARE PROVIDER: Lizzette Quarles, nurse practitioner. SOCIAL HISTORY: He is . Ethyl alcohol (EtOH): He drinks beer 2-3 times a month. Smokes two packs of cigarettes per day. Recreational drug use: None. PAST MEDICAL HISTORY: 1. Hypercholesterolemia. 2. Depression. 3. Mood disorder. PAST SURGICAL HISTORY: Negative. HOME MEDICATIONS: - Depakote 1000 mg by mouth nightly - Seroquel 400 mg by mouth nightly - simvastatin 20 mg by mouth nightly - Viibryd 20 mg by mouth nightly - vitamin D 50,000 units one tablet per week FAMILY HISTORY: Noncontributory. LABORATORY STUDIES: WBC 7.1, hemoglobin 14.4, hematocrit 41.4, platelets 243. Electrolytes were normal. BUN and creatinine were 16 and 1.10. TSH was low at 0.157. Urine was positive for tricyclic antidepressants. REVIEW OF SYSTEMS: 10-system review was done, was negative, was unremarkable. Patient had no complaints. PHYSICAL EXAMINATION: 40-year-old cooperative male in no acute distress. Height 66 inches, weight 85.2 kg, body mass index (BMI) 30.3. Blood pressure 128/71, pulse 77, respirations 18, temperature 96.4. Patient is alert and oriented times three. Pupils equal and react to light. Extraocular muscles intact. Cornea and sclerae clear. Conjunctivae were normal. No facial asymmetry. Pharynx, tongue and gums pink and moist. Tongue is midline. Neck is supple without lymphadenopathy. No thyromegaly, no goiter. Chest clear to auscultation without wheeze or retraction. Heart is regular. Abdomen is benign. Bowel sounds positive. Genitourinary/rectal: Not done. Extremities show equal strength, full range of motion. No cyanosis, clubbing or edema. Peripheral pulses equal and palpable bilaterally. Skin is warm and dry. IMPRESSION/PLAN: 1. Psychiatric plan per psychiatry. 2. History of hypercholesterolemia, continue simvastatin. 3. Smoking cessation, nicotine patch offered. No other acute medical issues.
[2016-04-28 06:31] VITALS: BP 116/68
[2016-04-28 07:26] LABS: THYROXINE (T4) 6.5 UG/DL (4.5-12.0)
--- NOTE | 2016-04-28 09:04 | EDDOCDS ---
Physician Documentation [facility] Name: Toni Aranda Age: 40 yrs Sex: Male : 1975 Arrival Date: 04/25/2016 Time: 15:43 Bed BHU1 Private MD: Lizzette Quarles Disposition: 04/25/16 17:27 Hospitalization ordered by Sanchez uBsby for Inpatient Admission. Preliminary diagnosis are Suicidal ideations, Adjustment disorder with depressed mood. - Bed requested for Admit. - Status is Inpatient Admission. mlc - Condition is Stable. - Problem is an ongoing problem. - Symptoms have worsened. Historical: - Allergies: no known allergies; - Home Meds: 1. Viibryd 20 mg oral tab once daily 2. divalproex 500 mg oral Tb24 2 tabs nightly 3. quetiapine 400 mg oral tab nightly 4. simvastatin 20 mg Oral tab 1 tab once daily 5. Vitamin D Oral 50,000 unit weekly - PMHx: Hypercholesterolemia; Depression; mood d/o; - PSHx: none; - Social history: Smoking status: Patient uses tobacco products, current every day smoker. No barriers to communication noted, The patient speaks fluent Lao. - Family history: Not pertinent. - : The pt / caregiver states he / she is not on anticoagulants. Home medication list is obtained from pill bottles. - Exposure Risk Screening:: None identified. Vital Signs: 04/25 15:44 BP 161 / 94; Pulse 104; Resp 18; Temp 98.3(O); Pulse Ox 96% on R/A; Weight 86.18 kg / dem1 189.99 lbs; Height 5 ft. 6 in. (167.64 cm); Pain 0/10; 17:31 BP 133 / 79; Pulse 96; Resp 18; Temp 98.2(O); Pulse Ox 96% on R/A; Pain 0/10; jmb 19:11 BP 134 / 83; Pulse 104; Resp 18; Temp 97.8; Pulse Ox 94% ; Pain 0/10; mas 15:44 Body Mass Index 30.67 (86.18 kg, 167.64 cm) dem1 MDM: 16:17 Consult PFS/PSA/Broker Associate ordered. richardson 16:17 Consult PFS/PSA/Broker Associate: Patient's case requires discussion with on-call richardson Psychiatrist ordered. 16:17 PSA/PFS to call Nursing Dramatic Director, to enter patient data on [place] Safe [place] if patient ke involuntarily admitted or transferred for SI or HI ordered. 16:17 Confirm accurate psychiatric medication list and times of last dosage ordered. ke 16:17 Detain Pt Until Medically/PFS Cleared ordered. ke 16:17 Nicotine Patch 21 mg/24 hr 1 applic Transdermal once ordered. ke 16:18 Acetaminophen Level Ordered. EDMS 16:18 Basic Metabolic Profile Ordered. EDMS 16:18 Complete Blood Count Ordered. EDMS 16:18 Drug Eval Toxicology ED Only Ordered. EDMS 16:18 Ethyl Alcohol (ethanol) Ordered. EDMS 16:18 Liver Profile Ordered. EDMS 16:18 Salicylate Level Ordered. EDMS 16:18 Thyroid Stimulating Hormone Ordered. EDMS 16:19 REGULAR+DIET ordered. EDMS 17:03 Financial registration complete. zo 17:05 [facility] Payment Agreement was scanned into [employer] and attached to record. zo 17:08 Consult PFS/PSA/Broker Associate complete. rb 17:25 Acetaminophen Level Reviewed. ke 17:25 Basic Metabolic Profile Reviewed. ke 17:25 Complete Blood Count Reviewed. ke 17:25 Drug Eval Toxicology ED Only Reviewed. ke 17:25 Salicylate Level Reviewed. ke 17:25 Thyroid Stimulating Hormone Reviewed. ke 17:25 Ethyl Alcohol (ethanol) Reviewed. ke 17:25 Liver Profile Reviewed. ke 17:28 BED REQUEST+ADM ordered. EDMS 18:28 Admit to [facility]: ordered. EDMS 18:32 PSA Outpatient Referrals was scanned into [employer] and attached to record. cs 18:45 Consult PFS/PSA/Broker Associate: Patient's case requires discussion with on-call rb Psychiatrist complete. 18:46 PSA/PFS to call Nursing Dramatic Director, to enter patient data [place] if patient rb involuntarily admitted or transferred for SI or HI complete. 19:11 [facility] Legal paperwork was scanned into [employer] and attached to record. cs 21:09 T-Sheet-- Draft Copy was scanned into [employer] and attached to record. hemantr Administered Medications: 16:36 Drug: Nicotine 1 applic [nicotine 21 mg/24 hr daily transdermal patch (1 patches)] delroy Route: Transdermal; Site: right upper arm; 18:25 Follow up: Response: No Adverse Reaction jmjoselin Signatures: Dispatcher [employer] EDMS Ericka Roblero, PSA PSA rb Edwin Jain, PSA PSA cs Clem Dolan, BLENDING TECHNICIAN BLENDING TECHNICIAN Brenda Stringer Jessica RN RN Wagner Barnard RN RN jmb Booth, Mandy, RN RN mlc Redder, Kathie klr The chart was reviewed and I authenticate all verbal orders and agree with the evaluation and treatment provided.Attachments: 17:05 [facility] [place] Payment Agreement zo 21:09 T-Sheet-- Draft Copy klportia MTDD
--- NOTE | 2016-04-28 09:05 | EDDOCDS ---
Physician Documentation [facility] Name: Toni Aranda Age: 40 yrs Sex: Male : 1975 Arrival Date: 04/25/2016 Time: 15:43 Bed BHU1 Private MD: Lizzette Quarles Disposition: 04/25/16 17:27 Hospitalization ordered by Sanchez Busby for Inpatient Admission. Preliminary diagnosis are Suicidal ideations, Adjustment disorder with depressed mood. - Bed requested for Admit. - Status is Inpatient Admission. mlc - Condition is Stable. - Problem is an ongoing problem. - Symptoms have worsened. Historical: - Allergies: no known allergies; - Home Meds: 1. Viibryd 20 mg oral tab once daily 2. divalproex 500 mg oral Tb24 2 tabs nightly 3. quetiapine 400 mg oral tab nightly 4. simvastatin 20 mg Oral tab 1 tab once daily 5. Vitamin D Oral 50,000 unit weekly - PMHx: Hypercholesterolemia; Depression; mood d/o; - PSHx: none; - Social history: Smoking status: Patient uses tobacco products, current every day smoker. No barriers to communication noted, The patient speaks fluent Algerian. - Family history: Not pertinent. - : The pt / caregiver states he / she is not on anticoagulants. Home medication list is obtained from pill bottles. - Exposure Risk Screening:: None identified. Vital Signs: 04/25 15:44 BP 161 / 94; Pulse 104; Resp 18; Temp 98.3(O); Pulse Ox 96% on R/A; Weight 86.18 kg / dem1 189.99 lbs; Height 5 ft. 6 in. (167.64 cm); Pain 0/10; 17:31 BP 133 / 79; Pulse 96; Resp 18; Temp 98.2(O); Pulse Ox 96% on R/A; Pain 0/10; jmb 19:11 BP 134 / 83; Pulse 104; Resp 18; Temp 97.8; Pulse Ox 94% ; Pain 0/10; mas 15:44 Body Mass Index 30.67 (86.18 kg, 167.64 cm) dem1 MDM: 16:17 Consult PFS/PSA/Supervisor [employer] ordered. richardson 16:17 Consult PFS/PSA/Supervisor [employer]: Patient's case requires discussion with on-call richardson Psychiatrist ordered. 16:17 PSA/PFS to call Nursing Excavator Backhoe Operator, to enter [place] data [place] if patient ke involuntarily admitted or transferred for SI or HI ordered. 16:17 Confirm accurate psychiatric medication list and times of last dosage ordered. ke 16:17 Detain Pt Until Medically/PFS Cleared ordered. ke 16:17 Nicotine Patch 21 mg/24 hr 1 applic Transdermal once ordered. ke 16:18 Acetaminophen Level Ordered. EDMS 16:18 Basic Metabolic Profile Ordered. EDMS 16:18 Complete Blood Count Ordered. EDMS 16:18 Drug Eval Toxicology ED Only Ordered. EDMS 16:18 Ethyl Alcohol (ethanol) Ordered. EDMS 16:18 Liver Profile Ordered. EDMS 16:18 Salicylate Level Ordered. EDMS 16:18 Thyroid Stimulating Hormone Ordered. EDMS 16:19 REGULAR+DIET ordered. EDMS 17:03 Financial registration complete. zo 17:05 [facility] Payment Agreement was scanned into [employer] and attached to record. zo 17:08 Consult PFS/PSA/Supervisor [employer] complete. rb 17:25 Acetaminophen Level Reviewed. ke 17:25 Basic Metabolic Profile Reviewed. ke 17:25 Complete Blood Count Reviewed. ke 17:25 Drug Eval Toxicology ED Only Reviewed. ke 17:25 Salicylate Level Reviewed. ke 17:25 Thyroid Stimulating Hormone Reviewed. ke 17:25 Ethyl Alcohol (ethanol) Reviewed. ke 17:25 Liver Profile Reviewed. ke 17:28 BED REQUEST+ADM ordered. EDMS 18:28 Admit to [facility]: ordered. EDMS 18:32 PSA Outpatient Referrals was scanned into [employer] and attached to record. cs 18:45 Consult PFS/PSA/Supervisor [employer]: Patient's case requires discussion with on-call rb Psychiatrist complete. 18:46 PSA/PFS to call Nursing Excavator Backhoe Operator, to enter [place] if patient rb involuntarily admitted or transferred for SI or HI complete. 19:11 [facility] Legal paperwork was scanned into [employer] and attached to record. cs 21:09 T-Sheet-- Draft Copy was scanned into [employer] and attached to record. hemantr Administered Medications: 16:36 Drug: Nicotine 1 applic [nicotine 21 mg/24 hr daily transdermal patch (1 patches)] delroy Route: Transdermal; Site: right upper arm; 18:25 Follow up: Response: No Adverse Reaction jmjoselin Signatures: Dispatcher [employer] EDMS Ericka Roblero, PSA PSA rb Edwin Jain, PSA PSA cs Clem Dolan, COOK TORTILLA COOK TORTILLA Brenda Stringer Jessica RN RN Wagner Barnard RN RN jmb Booth, Mandy, RN RN mlc Redder, Kathie klr The chart was reviewed and I authenticate all verbal orders and agree with the evaluation and treatment provided.Attachments: 17:05 [facility] Payment Agreement zo 21:09 T-Sheet-- Draft Copy klportia MTDD
--- NOTE | 2016-04-28 09:05 | EDDOCDS ---
Nurse's Notes [facility] Name: Toni Aranda Age: 40 yrs Sex: Male : 1975 Arrival Date: 04/25/2016 Time: 15:43 Bed [facility] Private MD: Lizzette Quarles Diagnosis: Suicidal ideations;Adjustment disorder with depressed mood Presentation: 04/25 15:49 Presenting complaint: Patient states: thoughts of hurting self over past couple weeks. jr Mental Health Triage Level: Level 2: The patient displays active suicidal ideations. Adult Sepsis Screening: The patient does not have new or worsening altered mentation. Patient's respiratory rate is less than 22. Systolic blood pressure is greater than 100. Patient has a qSOFA score of 0- Negative Sepsis Screen. Suicide/Homicide risk assessment- The patient admits to and/or has been reported to be having suicidal ideations. The patient reports that he/she has not been admitted to an inpatient mental health facility in the last 30 days. The patient reports that he/she does not have a recent or current history of substance abuse. The patient reports that he/she has no prior history of suicide attempt and/or organized plan. Status: Patient is not a animal care service worker or dependent. Transition of care: patient was not received from another setting of care. 15:49 Acuity: SARAH Level 3 [facility] 15:49 Method Of Arrival: Walkin/Carried/Asstd jr Triage Assessment: 15:52 General: Appears in no apparent distress, Behavior is appropriate for age. Pain: Denies jjr pain. HIV screening NA for this visit Offered previously. Historical: - Allergies: no known allergies; - Home Meds: 1. Viibryd 20 mg oral tab once daily 2. divalproex 500 mg oral Tb24 2 tabs nightly 3. quetiapine 400 mg oral tab nightly 4. simvastatin 20 mg Oral tab 1 tab once daily 5. Vitamin D Oral 50,000 unit weekly - PMHx: Hypercholesterolemia; Depression; mood d/o; - PSHx: none; - Social history: Smoking status: Patient uses tobacco products, current every day smoker. No barriers to communication noted, The patient speaks fluent Czech. - Family history: Not pertinent. - : The pt / caregiver states he / she is not on anticoagulants. Home medication list is obtained from pill bottles. - Exposure Risk Screening:: None identified. Screenin:07 Screening information is obtained from the patient. Fall risk: No risks identified. jmb Assistance ADL's: requires no assistance with activities of daily living. Abuse/DV Screen: The patient / caregiver reports he/she is: not in a situation that causes fear, pain or injury. Nutritional screening: No deficits noted. home support is adequate. 18:23 Advance Directives: Currently, there is no health care proxy. There is no active DNR jmb order. There is no living will. There is no Power of Waxer Tender. Assessment: 16:07 General: Appears in no apparent distress, Behavior is appropriate for age, cooperative, jmb Patient changed into U clothing. Patient reports that he has a desire to self harm through drinking a lot of alcohol and taking pills to where he falls asleep and does not wake up. Patient admits to alcohol use last evening of a six pack of beer. Patient denies illegal drug use, reports that if he had the money he would love to smoke weed. Patient admits to drinking 4-5 cups of coffee daily. Patient states that his mother just March 18 and since then he feels that "the devil has made a major impact on his life to bring everything down hill". . Pain: Denies pain. Neurological: Level of Consciousness is awake, alert, obeys commands, Oriented to person, place, time, Speech is normal, Facial symmetry appears normal, Facial symmetry: tongue is midline. Cardiovascular: Capillary refill < 3 seconds Heart tones S1 S2 present Pulses are all present. Rhythm is regular. Respiratory: Airway is patent Respiratory effort is even, unlabored, Respiratory pattern is regular, symmetrical, Breath sounds are clear bilaterally. GI: Abdomen is obese, Bowel sounds present X 4 quads. Abd is soft and non tender X 4 quads. Derm: Skin is pink, warm & dry. Musculoskeletal: Range of motion intact in all extremities. 16:07 General: Patient reports having history of admission to [facility] when he was 18 years old [place] and an admission to another inpatient facility in 2011. Patient reports being seen outpatient by [facility] currently that he feels is not helping him. . 17:06 General: Appears in no apparent distress, comfortable, Behavior is appropriate for age, jmb cooperative, Patient sitting in room on stretcher with friend at bedside. No voiced complaints at this time. Nicotine patch applied to right upper arm. . Neurological: Level of Consciousness is awake, alert, obeys commands, Oriented to person, place, time. Respiratory: Airway is patent Respiratory effort is even, unlabored, Respiratory pattern is regular, symmetrical. 17:31 General: Appears in no apparent distress, comfortable, Behavior is appropriate for age, jmb cooperative, Patient laying on stretcher, vital signs obtained. Patient denies discomfort at this time. . Neurological: Level of Consciousness is awake, alert, obeys commands, Oriented to person, place, time, Speech is normal, Facial symmetry appears normal, Facial symmetry: tongue is midline. Cardiovascular: Capillary refill < 3 seconds Heart tones S1 S2 present Pulses are all present. Rhythm is regular. Respiratory: Airway is patent Respiratory effort is even, unlabored, Respiratory pattern is regular, symmetrical. GI: Abdomen is obese, Bowel sounds present X 4 quads. Abd is soft and non tender X 4 quads. Derm: Skin is pink, warm & dry. Musculoskeletal: Range of motion intact in all extremities. 18:23 General: Appears in no apparent distress, comfortable, Behavior is appropriate for age, jmb cooperative, Patient just received meal, finished eating dinner. Currently laying on stretcher, appears comfortable. Patient denies discomfort at this time. . Pain: Denies pain. Neurological: Level of Consciousness is awake, alert, obeys commands, Oriented to person, place, time, Speech is normal. Respiratory: Airway is patent Respiratory effort is even, unlabored, Respiratory pattern is regular, agonal. Derm: Skin is pink, warm & dry. 19:25 General: Appears in no apparent distress, comfortable, Behavior is appropriate for age, mlc cooperative, pleasant. Pain: Denies pain. Neurological: Level of Consciousness is awake, alert, Oriented to person, place, time. Cardiovascular: Capillary refill < 3 seconds Heart tones S1 S2 present. Respiratory: Airway is patent Respiratory effort is even, unlabored, Respiratory pattern is regular, Breath sounds are clear bilaterally. Derm: Skin is pink, warm & dry. Mental Health Eval: 18:14 Mental health consult is initiated at 18:00. Status: The patient is not a rb animal care service worker or dependent. [facility] Behavioral Health: The patient is not an established patient of [facility] Behavioral Health. Referral Information: Evaluation referral is generated by Tanja Madrigal. 18:22 Referral Information: The patient was referred for evaluation because Pt presented to ED after texting people stating devil is out to get him, making +SI statements with plan to overdose and +ETOH. Pt reported stressors as Mother 03/2016, GF of 1yr 4 mo broke up with him 04/12/16 very unexpectedly, [facility] forcing Pt to return to work 4 hours a day/5 days a week. Pt is worried he will "f... it up and will lose my place to live". Pt stated cannot get out of the house on time, "Will freeze up, get nervous, can't get motivated". Pt reported stressing over the community garden. According to Pt, have not cleaned or picked up apartment. Pt reported "get nervous over everything". "Have not cleaned or picked up my apartment". "Feels like the devil is out to get me again". "nothing makes me happy". . Subjective: The patients chief complaint is depressed, +SI with plan to overdose on medications and +ETOH.. Delusions are denied. Patient's mood is anxious, dysphoric, hopeless, Hallucinations are denied. Mental Health history: anxiety, depression, schizophrenia, OCD. Mental Health Admissions: [facility] at age 18, and [facility] in [place]- 1996. Current Outpatient Mental Health Services: Psychiatrist / Agency: Sonya Sands \\[place]\\ Jennifer for medication management. Therapist / Agency: Paul Rodriguez . Top Distribution Executive / Agency: Annalise Mccracken; ACR Taxation Inspector. Current living environment is The patient currently lives self. Patient presents to Emergency Department with the following symptoms within the past 2 weeks: antisocial behavior, anxiety, depressed mood, feelings of helplessness/hopelessness, non-compliance, paranoia, sleep disturbance - insomnia, suicidal ideation with plan for pills. Substance abuse: Pt denies. Mental status exam: Patients appearance is disheveled Patient's behavior is cooperative, minimally responsive Speech is slow. Affect is flat. Mood is anxious. dysphoric. Hallucinations are denied. Appetite is normal. Memory is good. Energy level is lethargic. Content of thought is depressive. , Thought process is tangential. Cognitive level is oriented to person, place, time and situation Patient's insight is poor. Judgement is poor. Rapport with interviewer is good. Suicidal Ideation present with a plan to kill self by pills. Homicidal ideation is not present. Disposition: Medically cleared for disposition by Clem ONEAL Psychiatric Consult is performed by phone with Dr Sanchez Busby MD. [facility] Admission Criteria: The patient is experiencing suicidal ideation. The patient displays symptoms of severe psychiatric disorder resulting in disordered behavior and significant interference with his / her ability to maintain self care. Severe Anxiety. Psychomotor Retardation. The patient requires continuous observation and/or control to protect self, others or property. The patient requires administration and monitoring of psychoactive medications by skilled medical providers due to the side effects of the psychoactive medications or significant dosage adjustments. Legal Status: Patient's legal status will be Emergency admission: . [place] Safe Act: [place] Safe Act is applicable to this patient. The patient poses a risk to self or other and the Nursing Energy Administrator has been notified. He/She will enter the patient's data. DSM-V Differential Diagnosis: Schizoaffective Disorder (F25.0) depressive type (F25.1). Pt states preferred pharmacy is: [facility] 18:44 Narrative: Pt legals placed with his belongings. Awaiting: transfer to [facility]. rb Vital Signs: 15:44 BP 161 / 94; Pulse 104; Resp 18; Temp 98.3(O); Pulse Ox 96% on R/A; Weight 86.18 kg; dem1 Height 5 ft. 6 in. (167.64 cm); Pain 0/10; 17:31 BP 133 / 79; Pulse 96; Resp 18; Temp 98.2(O); Pulse Ox 96% on R/A; Pain 0/10; jmb 19:11 BP 134 / 83; Pulse 104; Resp 18; Temp 97.8; Pulse Ox 94% ; Pain 0/10; mas 15:44 Body Mass Index 30.67 (86.18 kg, 167.64 cm) dem1 Vitals: 15:44 Log In Time: April 25, 2016 at 15:42. RN notified that patient meets Red Flag dem1 criteria. ED Course: 15:44 Patient visited by Zhao Yates. dem1 15:44 Lizzette Quarles is Private Physician. dem1 15:44 Patient moved to Waiting dem1 15:52 Triage Initiated jjr 15:52 [address] 16:00 Accompanied by Friend, Patient has correct armband on for positive identification. tmm1 Placed in gown. Placed in psych safe attire. Bed in low position. Side rails up X 1. Security observing. Property removed, inventory done, secured in belongings bag- placed in locked locker. Door closed. Noise minimized. Visitors limited. Psych Safety Check: Location: Psych Room. Visual Assessment: Cooperative. 16:07 Clem Dolan FNP is [facility]. ke 16:07 Patient visited by Clem Dolan FNP. ke 16:07 Patient visited by Clem Dolan FNP. ke 16:07 The patient / caregiver is instructed regarding the plan of care and ED course. jmb 16:07 No IV's were initiated during this patient's visit. No procedures done that require jmb assistance. 16:11 Patient visited by Wagner Maguire RN. jmb 16:15 Psych Safety Check: Location: Psych Room. Visual Assessment: Cooperative. tmm1 16:30 Psych Safety Check: Location: Psych Room. Visual Assessment: Cooperative. tmm1 16:31 Patient visited by Joleen Yu PCA. tmm1 16:32 Acetaminophen Level Sent. jmb 16:32 Basic Metabolic Profile Sent. jmb 16:32 Complete Blood Count Sent. jmb 16:32 Drug Eval Toxicology ED Only Sent. jmb 16:32 Ethyl Alcohol (ethanol) Sent. jmb 16:32 Liver Profile Sent. jmb 16:32 Salicylate Level Sent. jmb 16:32 Thyroid Stimulating Hormone Sent. jmb 16:45 Psych Safety Check: Location: Psych Room. Visual Assessment: Cooperative. tmm1 16:52 Patient visited by Clem Dolan FNP. ke 17:05 [facility] Payment Agreement was scanned into [employer] and attached to record. zo 17:07 Patient visited by Wagner Maguire RN. jmb 17:21 Psych Safety Check: Location: Psych Room. Visual Assessment: Cooperative. tmm1 17:26 Sanchez Busby MD is Hospitalizing Provider. ke 17:33 Patient visited by Wagner Maguire RN. jmb 17:34 Patient visited by Joleen Yu PCA. tmm1 17:34 Psych Safety Check: Location: Psych Room. Visual Assessment: Cooperative. tmm1 17:54 Patient visited by Joleen Yu PCA. tmm1 17:54 Psych Safety Check: Location: Psych Room. Visual Assessment: Cooperative. tmm1 18:02 Patient visited by Joleen Yu PCA. tmm1 18:02 Psych Safety Check: Location: Psych Room. Visual Assessment: Cooperative. tmm1 18:16 Psych Safety Check: Location: Psych Room. Visual Assessment: Cooperative. tmm1 18:17 Patient visited by Joleen Yu PCA. tmm1 18:24 Patient visited by Wagner Maguire RN. jmb 18:31 Patient visited by Joleen Yu PCA. tmm1 18:31 Psych Safety Check: Location: Psych Room. Visual Assessment: Cooperative. tmm1 18:32 PSA Outpatient Referrals was scanned into [employer]ion and attached to record. cs 18:47 Patient visited by Pedro Rosario. mas 19:05 Patient visited by Pedro Rosario. mas 19:11 [facility] Legal paperwork was scanned into [employer]ion and attached to record. cs 19:15 Patient visited by Pedro Rosario. mas 21:09 T-Sheet-- Draft Copy was scanned into [employer]ion and attached to record. klr Administered Medications: 16:36 Drug: Nicotine 1 applic [nicotine 21 mg/24 hr daily transdermal patch (1 patches)] [place] Route: Transdermal; Site: right upper arm; 18:25 Follow up: Response: No Adverse Reaction [place] Attachments: 19:11 [facility] Legal paperwork cs Order Results: Lab Order: Acetaminophen Level; SPEC'M 04/25/16 16:29 Test: ACETAMINOPHEN LEVEL; Value: < 2.0; Range: 10.0-30.0; Abnormal: Below low normal; Units: UG/ML; Status: F Lab Order: Basic Metabolic Profile; SPEC'M 04/25/16 16:29 Test: GLUCOSE, FASTING; Value: 119; Range: 70-105; Abnormal: Above high normal; Units: MG/DL; Status: F Test: BLOOD UREA NITROGEN; Value: 16; Range: 7-18; Units: MG/DL; Status: F Test: CREATININE FOR GFR; Value: 1.01; Range: 0.70-1.30; Units: MG/DL; Status: F Test: GLOMERULAR FILTRATION RATE; Value: > 60.0; Range: >60; Status: F Test: SODIUM LEVEL; Value: 144; Range: 136-145; Units: MEQ/L; Status: F Test: POTASSIUM SERUM; Value: 3.8; Range: 3.5-5.1; Units: MEQ/L; Status: F Test: CHLORIDE LEVEL; Value: 107; Range: 98-107; Units: MEQ/L; Status: F Test: CARBON DIOXIDE LEVEL; Value: 28; Range: 21-32; Units: MEQ/L; Status: F Test: ANION GAP; Value: 9; Range: 8-16; Units: MEQ/L; Status: F Test: CALCIUM LEVEL; Value: 8.9; Range: 8.5-10.1; Units: MG/DL; Status: F Test Note: ; Units are mL/min/1.73 m2 Chronic Kidney Disease Staging per NKF: Stage I & II GFR >=60 Normal to Mildly Decreased Stage III GFR 30-59 Moderately Decreased Stage IV GFR 15-29 Severely Decreased Stage V GFR <15 Very Little GFR Left ESRD GFR <15 on ADMINISTRATIVE SUPERVISOR Lab Order: Complete Blood Count; [facility] 04/25/16 16:29 Test: WHITE BLOOD COUNT; Value: 7.1; Range: 4.0-10.0; Units: K/mm3; Status: F Test: RED BLOOD COUNT; Value: 4.21; Range: 4.30-6.10; Abnormal: Below low normal; Units: M/mm3; Status: F Test: HEMOGLOBIN; Value: 14.4; Range: 14.0-18.0; Units: g/dl; Status: F Test: HEMATOCRIT; Value: 41.4; Range: 42.0-52.0; Abnormal: Below low normal; Units: %; Status: F Test: MEAN CORPUSCULAR VOLUME; Value: 98.1; Range: 80.0-96.0; Abnormal: Above high normal; Units: fl; Status: F Test: MEAN CORPUSCULAR HEMOGLOBIN; Value: 34.3; Range: 27.0-33.0; Abnormal: Above high normal; Units: pg; Status: F Test: MEAN CORPUSCULAR HGB CONC; Value: 34.9; Range: 32.0-36.5; Units: g/dl; Status: F Test: RED CELL DISTRIBUTION WIDTH; Value: 13.0; Range: 11.5-14.5; Units: %; Status: F Test: PLATELET COUNT, AUTOMATED; Value: 243; Range: 150-450; Units: k/mm3; Status: F Lab Order: Drug Eval Toxicology ED Only; SPEC'M 04/25/16 16:29 Test: AMPHETAMINES LEVEL URINE; Value: NEGATIVE; Range: NEGATIVE; Status: F Test: BARBITURATES URINE; Value: NEGATIVE; Range: NEGATIVE; Status: F Test: BENZODIAZEPINES URINE; Value: NEGATIVE; Range: NEGATIVE; Status: F Test: CANNABINOIDS URINE; Value: NEGATIVE; Range: NEGATIVE; Status: F Test: COCAINE METABOLITE URINE; Value: NEGATIVE; Range: NEGATIVE; Status: F Test: METHADONE URINE; Value: NEGATIVE; Range: NEGATIVE; Status: F Test: OPIATES URINE; Value: NEGATIVE; Range: NEGATIVE; Status: F Test: TRICYCLIC ANTIDEPRESS URINE; Value: POSITIVE; Range: NEGATIVE; Abnormal: Above high normal; Status: F Test Note: ; ALL PRESUMPTIVE POSITIVE FINDINGS ARE UNCONFIRMED NORMAL VALUES THRESHOLD IN NG/ML AMPHETAMINES 1000 METHAMPHETAMINES 1000 BARBITURATES 300 BENZODIAZEPINES 300 CANNABINOIDS (THC) 50 COCAINE METABOLITE 300 METHADONE 300 OPIATES 300 PHENCYCLIDINE 25 TRICYCLIC ANTIDEPRESSANTS 1000 RESULTS ARE FOR MEDICAL PURPOSES ONLY. ALL URINE SPECIMENS WILL BE SAVED FOR 3 DAYS. IF CONFIRMATION OF A PRESUMPTIVE POSTIVE SCREEN RESULT IS DESIRED, CALL CHEMISTRY ([phone]) AND REQUEST URINE TO BE SENT TO REFERENCE LAB. FOR A LIST OF CLOSELY RELATED COMPOUNDS PLEASE CALL THE LAB. Lab Order: Ethyl Alcohol (ethanol); SPEC'M 04/25/16 16:29 Test: ETHYL ALCOHOL (ETHANOL); Value: < 0.003; Range: 0.000-0.010; Units: %; Status: F Lab Order: Liver Profile; SPEC'M 04/25/16 16:29 Test: AST/SGOT; Value: 16; Range: 15-37; Units: U/L; Status: F Test: ALT/SGPT; Value: 33; Range: 12-78; Units: U/L; Status: F Test: ALKALINE PHOSPHATASE; Value: 72; Range: 45-117; Units: U/L; Status: F Test: BILIRUBIN,TOTAL; Value: 0.2; Range: 0.2-1.0; Units: MG/DL; Status: F Test: BILIRUBIN,DIRECT; Value: < 0.1; Range: 0.0-0.2; Units: MG/DL; Status: F Test: TOTAL PROTEIN; Value: 7.0; Range: 6.4-8.2; Units: GM/DL; Status: F Test: ALBUMIN; Value: 3.9; Range: 3.2-5.2; Units: GM/DL; Status: F Test: ALBUMIN/GLOBULIN RATIO; Value: 1.26; Range: 1.00-1.93; Status: F Lab Order: Salicylate Level; SPEC'M 04/25/16 16:29 Test: SALICYLATE LEVEL; Value: 3.7; Range: 5.0-30.0; Abnormal: Below low normal; Units: MG/DL; Status: F Lab Order: Thyroid Stimulating Hormone; SPEC'M 04/25/16 16:29 Test: THYROID STIMULATING HORMONE; Value: 0.157; Range: 0.358-3.740; Abnormal: Below low normal; Units: uIU/ML; Status: F Outcome: 17:27 Decision to Hospitalize by Provider. ke 19:25 Discharge Assessment: Patient awake, alert and oriented x 3. No cognitive and/or mlc functional deficits noted. Patient verbalized understanding of disposition instructions. patient administered narcotics - no. The following High Risk Discharge criteria are identified: None. Admitted to Psych accompanied by tech, via wheelchair, with chart. Condition: stable. No special radiology studies were completed. Property given to [facility] staff. 19:27 Patient left the ED. [facility] [place] Addendum: 04/28/2016 08:45 Narrative: Pre auth approved by Ny Wang\\ VIJAY for 5 days; 04/25- and review rb 04/29/16 with Tanja Wang\\ #[phone]. Auth#[id number]. Signatures: Ericka Roblero, PSA PSA rb Edwin Jain, PSA PSA Clem Narayan, WARDROBE TECHNICIAN WARDROBE TECHNICIAN Brenda Stringer Jessica, RN RN Pedro Crowe Demeishia dem1 McLear, Joleen, TELEGRAPH REPEATER MECHANIC TELEGRAPH REPEATER MECHANIC tmm1 Maguire,WagnerSAL tse RN, Mandy, RN RN mlc Redder, Kathie klr Corrections: (The following items were deleted from the chart) 04/25 17:33 17:06 Neurological: Level of Consciousness is awake, alert, listless, Oriented to b person, place, time, jmb MTDD
--- NOTE | 2016-04-28 09:06 | EDDOCDS ---
Nurse's Notes [facility] Name: Toni Aranda Age: 40 yrs Sex: Male : 1975 Arrival Date: 04/25/2016 Time: 15:43 Bed [facility] Private MD: Lizzette Quarles Diagnosis: Suicidal ideations;Adjustment disorder with depressed mood Presentation: 04/25 15:49 Presenting complaint: Patient states: thoughts of hurting self over past couple weeks. jr Mental Health Triage Level: Level 2: The patient displays active suicidal ideations. Adult Sepsis Screening: The patient does not have new or worsening altered mentation. Patient's respiratory rate is less than 22. Systolic blood pressure is greater than 100. Patient has a qSOFA score of 0- Negative Sepsis Screen. Suicide/Homicide risk assessment- The patient admits to and/or has been reported to be having suicidal ideations. The patient reports that he/she has not been admitted to an inpatient mental health facility in the last 30 days. The patient reports that he/she does not have a recent or current history of substance abuse. The patient reports that he/she has no prior history of suicide attempt and/or organized plan. Status: Patient is not a emergency service restorer or dependent. Transition of care: patient was not received from another setting of care. 15:49 Acuity: SARAH Level 3 [facility] 15:49 Method Of Arrival: Walkin/Carried/Asstd jr Triage Assessment: 15:52 General: Appears in no apparent distress, Behavior is appropriate for age. Pain: Denies jjr pain. HIV screening NA for this visit Offered previously. Historical: - Allergies: no known allergies; - Home Meds: 1. Viibryd 20 mg oral tab once daily 2. divalproex 500 mg oral Tb24 2 tabs nightly 3. quetiapine 400 mg oral tab nightly 4. simvastatin 20 mg Oral tab 1 tab once daily 5. Vitamin D Oral 50,000 unit weekly - PMHx: Hypercholesterolemia; Depression; mood d/o; - PSHx: none; - Social history: Smoking status: Patient uses tobacco products, current every day smoker. No barriers to communication noted, The patient speaks fluent Yakut. - Family history: Not pertinent. - : The pt / caregiver states he / she is not on anticoagulants. Home medication list is obtained from pill bottles. - Exposure Risk Screening:: None identified. Screenin:07 Screening information is obtained from the patient. Fall risk: No risks identified. jmb Assistance ADL's: requires no assistance with activities of daily living. Abuse/DV Screen: The patient / caregiver reports he/she is: not in a situation that causes fear, pain or injury. Nutritional screening: No deficits noted. home support is adequate. 18:23 Advance Directives: Currently, there is no health care proxy. There is no active DNR jmb order. There is no living will. There is no Power of Shoeblack. Assessment: 16:07 General: Appears in no apparent distress, Behavior is appropriate for age, cooperative, jmb Patient changed into U clothing. Patient reports that he has a desire to self harm through drinking a lot of alcohol and taking pills to where he falls asleep and does not wake up. Patient admits to alcohol use last evening of a six pack of beer. Patient denies illegal drug use, reports that if he had the money he would love to smoke weed. Patient admits to drinking 4-5 cups of coffee daily. Patient states that his mother just March 18 and since then he feels that "the devil has made a major impact on his life to bring everything down hill". . Pain: Denies pain. Neurological: Level of Consciousness is awake, alert, obeys commands, Oriented to person, place, time, Speech is normal, Facial symmetry appears normal, Facial symmetry: tongue is midline. Cardiovascular: Capillary refill < 3 seconds Heart tones S1 S2 present Pulses are all present. Rhythm is regular. Respiratory: Airway is patent Respiratory effort is even, unlabored, Respiratory pattern is regular, symmetrical, Breath sounds are clear bilaterally. GI: Abdomen is obese, Bowel sounds present X 4 quads. Abd is soft and non tender X 4 quads. Derm: Skin is pink, warm & dry. Musculoskeletal: Range of motion intact in all extremities. 16:07 General: Patient reports having history of admission to [facility] when he was 18 years old [place] and an admission to another inpatient facility in 2011. Patient reports being seen outpatient by [facility] currently that he feels is not helping him. . 17:06 General: Appears in no apparent distress, comfortable, Behavior is appropriate for age, jmb cooperative, Patient sitting in room on stretcher with friend at bedside. No voiced complaints at this time. Nicotine patch applied to right upper arm. . Neurological: Level of Consciousness is awake, alert, obeys commands, Oriented to person, place, time. Respiratory: Airway is patent Respiratory effort is even, unlabored, Respiratory pattern is regular, symmetrical. 17:31 General: Appears in no apparent distress, comfortable, Behavior is appropriate for age, jmb cooperative, Patient laying on stretcher, vital signs obtained. Patient denies discomfort at this time. . Neurological: Level of Consciousness is awake, alert, obeys commands, Oriented to person, place, time, Speech is normal, Facial symmetry appears normal, Facial symmetry: tongue is midline. Cardiovascular: Capillary refill < 3 seconds Heart tones S1 S2 present Pulses are all present. Rhythm is regular. Respiratory: Airway is patent Respiratory effort is even, unlabored, Respiratory pattern is regular, symmetrical. GI: Abdomen is obese, Bowel sounds present X 4 quads. Abd is soft and non tender X 4 quads. Derm: Skin is pink, warm & dry. Musculoskeletal: Range of motion intact in all extremities. 18:23 General: Appears in no apparent distress, comfortable, Behavior is appropriate for age, jmb cooperative, Patient just received meal, finished eating dinner. Currently laying on stretcher, appears comfortable. Patient denies discomfort at this time. . Pain: Denies pain. Neurological: Level of Consciousness is awake, alert, obeys commands, Oriented to person, place, time, Speech is normal. Respiratory: Airway is patent Respiratory effort is even, unlabored, Respiratory pattern is regular, agonal. Derm: Skin is pink, warm & dry. 19:25 General: Appears in no apparent distress, comfortable, Behavior is appropriate for age, mlc cooperative, pleasant. Pain: Denies pain. Neurological: Level of Consciousness is awake, alert, Oriented to person, place, time. Cardiovascular: Capillary refill < 3 seconds Heart tones S1 S2 present. Respiratory: Airway is patent Respiratory effort is even, unlabored, Respiratory pattern is regular, Breath sounds are clear bilaterally. Derm: Skin is pink, warm & dry. Mental Health Eval: 18:14 Mental health consult is initiated at 18:00. Status: The patient is not a rb emergency service restorer or dependent. [facility] Behavioral Health: The patient is not an established patient of [facility] Behavioral Health. Referral Information: Evaluation referral is generated by Tanja Madrigal. 18:22 Referral Information: The patient was referred for evaluation because Pt presented to ED after texting people stating devil is out to get him, making +SI statements with plan to overdose and +ETOH. Pt reported stressors as Mother 03/2016, GF of 1yr 4 mo broke up with him 04/12/16 very unexpectedly, [facility] forcing Pt to return to work 4 hours a day/5 days a week. Pt is worried he will "f... it up and will lose my place to live". Pt stated cannot get out of the house on time, "Will freeze up, get nervous, can't get motivated". Pt reported stressing over the community garden. According to Pt, have not cleaned or picked up apartment. Pt reported "get nervous over everything". "Have not cleaned or picked up my apartment". "Feels like the devil is out to get me again". "nothing makes me happy". . Subjective: The patients chief complaint is depressed, +SI with plan to overdose on medications and +ETOH.. Delusions are denied. Patient's mood is anxious, dysphoric, hopeless, Hallucinations are denied. Mental Health history: anxiety, depression, schizophrenia, OCD. Mental Health Admissions: [facility] at age 18, and [facility] in [place]- 1996. Current Outpatient Mental Health Services: Psychiatrist / Agency: Sonya Sands \\[place]\\ Jennifer for medication management. Therapist / Agency: Paul Rodriguez . Jde Developer / Agency: Annalise Mccracken; [employer]ws [employer]. Current living environment is The patient currently lives self. Patient presents to Emergency Department with the following symptoms within the past 2 weeks: antisocial behavior, anxiety, depressed mood, feelings of helplessness/hopelessness, non-compliance, paranoia, sleep disturbance - insomnia, suicidal ideation with plan for pills. Substance abuse: Pt denies. Mental status exam: Patients appearance is disheveled Patient's behavior is cooperative, minimally responsive Speech is slow. Affect is flat. Mood is anxious. dysphoric. Hallucinations are denied. Appetite is normal. Memory is good. Energy level is lethargic. Content of thought is depressive. , Thought process is tangential. Cognitive level is oriented to person, place, time and situation Patient's insight is poor. Judgement is poor. Rapport with interviewer is good. Suicidal Ideation present with a plan to kill self by pills. Homicidal ideation is not present. Disposition: Medically cleared for disposition by Clem ONEAL Psychiatric Consult is performed by phone with Dr Sanchez Busby MD. [facility] Admission Criteria: The patient is experiencing suicidal ideation. The patient displays symptoms of severe psychiatric disorder resulting in disordered behavior and significant interference with his / her ability to maintain self care. Severe Anxiety. Psychomotor Retardation. The patient requires continuous observation and/or control to protect self, others or property. The patient requires administration and monitoring of psychoactive medications by skilled medical providers due to the side effects of the psychoactive medications or significant dosage adjustments. Legal Status: Patient's legal status will be Emergency admission: . [place] Safe Act: [place] Safe Act is applicable to this patient. The patient poses a risk to self or other and the Nursing Manager Security And Safety has been notified. He/She will enter the patient's data. DSM-V Differential Diagnosis: Schizoaffective Disorder (F25.0) depressive type (F25.1). Pt states preferred pharmacy is: [facility] 18:44 Narrative: Pt legals placed with his belongings. Awaiting: transfer to [facility]. rb Vital Signs: 15:44 BP 161 / 94; Pulse 104; Resp 18; Temp 98.3(O); Pulse Ox 96% on R/A; Weight 86.18 kg; dem1 Height 5 ft. 6 in. (167.64 cm); Pain 0/10; 17:31 BP 133 / 79; Pulse 96; Resp 18; Temp 98.2(O); Pulse Ox 96% on R/A; Pain 0/10; jmb 19:11 BP 134 / 83; Pulse 104; Resp 18; Temp 97.8; Pulse Ox 94% ; Pain 0/10; mas 15:44 Body Mass Index 30.67 (86.18 kg, 167.64 cm) dem1 Vitals: 15:44 Log In Time: April 25, 2016 at 15:42. RN notified that patient meets Red Flag dem1 criteria. ED Course: 15:44 Patient visited by Zhao Yatse. dem1 15:44 Lizzette Quarles is Private Physician. dem1 15:44 Patient moved to Waiting dem1 15:52 Triage Initiated jjr 15:52 [address] 16:00 Accompanied by Friend, Patient has correct armband on for positive identification. tmm1 Placed in gown. Placed in psych safe attire. Bed in low position. Side rails up X 1. Security observing. Property removed, inventory done, secured in belongings bag- placed in locked locker. Door closed. Noise minimized. Visitors limited. Psych Safety Check: Location: Psych Room. Visual Assessment: Cooperative. 16:07 Clem Dolan FNP is [facility]. ke 16:07 Patient visited by Clem Dolan FNP. ke 16:07 Patient visited by Clem Dolan FNP. ke 16:07 The patient / caregiver is instructed regarding the plan of care and ED course. jmb 16:07 No IV's were initiated during this patient's visit. No procedures done that require jmb assistance. 16:11 Patient visited by Wagner Maguire RN. jmb 16:15 Psych Safety Check: Location: Psych Room. Visual Assessment: Cooperative. tmm1 16:30 Psych Safety Check: Location: Psych Room. Visual Assessment: Cooperative. tmm1 16:31 Patient visited by Joleen Yu PCA. tmm1 16:32 Acetaminophen Level Sent. jmb 16:32 Basic Metabolic Profile Sent. jmb 16:32 Complete Blood Count Sent. jmb 16:32 Drug Eval Toxicology ED Only Sent. jmb 16:32 Ethyl Alcohol (ethanol) Sent. jmb 16:32 Liver Profile Sent. jmb 16:32 Salicylate Level Sent. jmb 16:32 Thyroid Stimulating Hormone Sent. jmb 16:45 Psych Safety Check: Location: Psych Room. Visual Assessment: Cooperative. tmm1 16:52 Patient visited by Clem Dolan FNP. ke 17:05 [facility] Payment Agreement was scanned into [employer] and attached to record. zo 17:07 Patient visited by Wagner Maguire RN. jmb 17:21 Psych Safety Check: Location: Psych Room. Visual Assessment: Cooperative. tmm1 17:26 Sanchez Busby MD is Hospitalizing Provider. ke 17:33 Patient visited by Wagner Maguire RN. jmb 17:34 Patient visited by Joleen Yu PCA. tmm1 17:34 Psych Safety Check: Location: Psych Room. Visual Assessment: Cooperative. tmm1 17:54 Patient visited by Joleen Yu PCA. tmm1 17:54 Psych Safety Check: Location: Psych Room. Visual Assessment: Cooperative. tmm1 18:02 Patient visited by Joleen Yu PCA. tmm1 18:02 Psych Safety Check: Location: Psych Room. Visual Assessment: Cooperative. tmm1 18:16 Psych Safety Check: Location: Psych Room. Visual Assessment: Cooperative. tmm1 18:17 Patient visited by Joleen Yu PCA. tmm1 18:24 Patient visited by Wagner Maguire RN. jmb 18:31 Patient visited by Joleen Yu PCA. tmm1 18:31 Psych Safety Check: Location: Psych Room. Visual Assessment: Cooperative. tmm1 18:32 PSA Outpatient Referrals was scanned into [employer] and attached to record. cs 18:47 Patient visited by Pedro Rosario. mas 19:05 Patient visited by Pedro Rosario. mas 19:11 [facility] Legal paperwork was scanned into [employer] and attached to record. cs 19:15 Patient visited by Pedro Rosario. mas 21:09 T-Sheet-- Draft Copy was scanned into [employer] and attached to record. klr Administered Medications: 16:36 Drug: Nicotine 1 applic [nicotine 21 mg/24 hr daily transdermal patch (1 patches)] [place] Route: Transdermal; Site: right upper arm; 18:25 Follow up: Response: No Adverse Reaction [place] Attachments: 19:11 [facility] Legal paperwork cs Order Results: Lab Order: Acetaminophen Level; SPEC'M 04/25/16 16:29 Test: ACETAMINOPHEN LEVEL; Value: < 2.0; Range: 10.0-30.0; Abnormal: Below low normal; Units: UG/ML; Status: F Lab Order: Basic Metabolic Profile; SPEC'M 04/25/16 16:29 Test: GLUCOSE, FASTING; Value: 119; Range: 70-105; Abnormal: Above high normal; Units: MG/DL; Status: F Test: BLOOD UREA NITROGEN; Value: 16; Range: 7-18; Units: MG/DL; Status: F Test: CREATININE FOR GFR; Value: 1.01; Range: 0.70-1.30; Units: MG/DL; Status: F Test: GLOMERULAR FILTRATION RATE; Value: > 60.0; Range: >60; Status: F Test: SODIUM LEVEL; Value: 144; Range: 136-145; Units: MEQ/L; Status: F Test: POTASSIUM SERUM; Value: 3.8; Range: 3.5-5.1; Units: MEQ/L; Status: F Test: CHLORIDE LEVEL; Value: 107; Range: 98-107; Units: MEQ/L; Status: F Test: CARBON DIOXIDE LEVEL; Value: 28; Range: 21-32; Units: MEQ/L; Status: F Test: ANION GAP; Value: 9; Range: 8-16; Units: MEQ/L; Status: F Test: CALCIUM LEVEL; Value: 8.9; Range: 8.5-10.1; Units: MG/DL; Status: F Test Note: ; Units are mL/min/1.73 m2 Chronic Kidney Disease Staging per NKF: Stage I & II GFR >=60 Normal to Mildly Decreased Stage III GFR 30-59 Moderately Decreased Stage IV GFR 15-29 Severely Decreased Stage V GFR <15 Very Little GFR Left ESRD GFR <15 on SERVER SOFTWARE ENGINEER Lab Order: Complete Blood Count; [facility] 04/25/16 16:29 Test: WHITE BLOOD COUNT; Value: 7.1; Range: 4.0-10.0; Units: K/mm3; Status: F Test: RED BLOOD COUNT; Value: 4.21; Range: 4.30-6.10; Abnormal: Below low normal; Units: M/mm3; Status: F Test: HEMOGLOBIN; Value: 14.4; Range: 14.0-18.0; Units: g/dl; Status: F Test: HEMATOCRIT; Value: 41.4; Range: 42.0-52.0; Abnormal: Below low normal; Units: %; Status: F Test: MEAN CORPUSCULAR VOLUME; Value: 98.1; Range: 80.0-96.0; Abnormal: Above high normal; Units: fl; Status: F Test: MEAN CORPUSCULAR HEMOGLOBIN; Value: 34.3; Range: 27.0-33.0; Abnormal: Above high normal; Units: pg; Status: F Test: MEAN CORPUSCULAR HGB CONC; Value: 34.9; Range: 32.0-36.5; Units: g/dl; Status: F Test: RED CELL DISTRIBUTION WIDTH; Value: 13.0; Range: 11.5-14.5; Units: %; Status: F Test: PLATELET COUNT, AUTOMATED; Value: 243; Range: 150-450; Units: k/mm3; Status: F Lab Order: Drug Eval Toxicology ED Only; SPEC'M 04/25/16 16:29 Test: AMPHETAMINES LEVEL URINE; Value: NEGATIVE; Range: NEGATIVE; Status: F Test: BARBITURATES URINE; Value: NEGATIVE; Range: NEGATIVE; Status: F Test: BENZODIAZEPINES URINE; Value: NEGATIVE; Range: NEGATIVE; Status: F Test: CANNABINOIDS URINE; Value: NEGATIVE; Range: NEGATIVE; Status: F Test: COCAINE METABOLITE URINE; Value: NEGATIVE; Range: NEGATIVE; Status: F Test: METHADONE URINE; Value: NEGATIVE; Range: NEGATIVE; Status: F Test: OPIATES URINE; Value: NEGATIVE; Range: NEGATIVE; Status: F Test: TRICYCLIC ANTIDEPRESS URINE; Value: POSITIVE; Range: NEGATIVE; Abnormal: Above high normal; Status: F Test Note: ; ALL PRESUMPTIVE POSITIVE FINDINGS ARE UNCONFIRMED NORMAL VALUES THRESHOLD IN NG/ML AMPHETAMINES 1000 METHAMPHETAMINES 1000 BARBITURATES 300 BENZODIAZEPINES 300 CANNABINOIDS (THC) 50 COCAINE METABOLITE 300 METHADONE 300 OPIATES 300 PHENCYCLIDINE 25 TRICYCLIC ANTIDEPRESSANTS 1000 RESULTS ARE FOR MEDICAL PURPOSES ONLY. ALL URINE SPECIMENS WILL BE SAVED FOR 3 DAYS. IF CONFIRMATION OF A PRESUMPTIVE POSTIVE SCREEN RESULT IS DESIRED, CALL CHEMISTRY ([phone]) AND REQUEST URINE TO BE SENT TO REFERENCE LAB. FOR A LIST OF CLOSELY RELATED COMPOUNDS PLEASE CALL THE LAB. Lab Order: Ethyl Alcohol (ethanol); SPEC'M 04/25/16 16:29 Test: ETHYL ALCOHOL (ETHANOL); Value: < 0.003; Range: 0.000-0.010; Units: %; Status: F Lab Order: Liver Profile; SPEC'M 04/25/16 16:29 Test: AST/SGOT; Value: 16; Range: 15-37; Units: U/L; Status: F Test: ALT/SGPT; Value: 33; Range: 12-78; Units: U/L; Status: F Test: ALKALINE PHOSPHATASE; Value: 72; Range: 45-117; Units: U/L; Status: F Test: BILIRUBIN,TOTAL; Value: 0.2; Range: 0.2-1.0; Units: MG/DL; Status: F Test: BILIRUBIN,DIRECT; Value: < 0.1; Range: 0.0-0.2; Units: MG/DL; Status: F Test: TOTAL PROTEIN; Value: 7.0; Range: 6.4-8.2; Units: GM/DL; Status: F Test: ALBUMIN; Value: 3.9; Range: 3.2-5.2; Units: GM/DL; Status: F Test: ALBUMIN/GLOBULIN RATIO; Value: 1.26; Range: 1.00-1.93; Status: F Lab Order: Salicylate Level; SPEC'M 04/25/16 16:29 Test: SALICYLATE LEVEL; Value: 3.7; Range: 5.0-30.0; Abnormal: Below low normal; Units: MG/DL; Status: F Lab Order: Thyroid Stimulating Hormone; SPEC'M 04/25/16 16:29 Test: THYROID STIMULATING HORMONE; Value: 0.157; Range: 0.358-3.740; Abnormal: Below low normal; Units: uIU/ML; Status: F Outcome: 17:27 Decision to Hospitalize by Provider. ke 19:25 Discharge Assessment: Patient awake, alert and oriented x 3. No cognitive and/or mlc functional deficits noted. Patient verbalized understanding of disposition instructions. patient administered narcotics - no. The following High Risk Discharge criteria are identified: None. Admitted to Psych accompanied by tech, via wheelchair, with chart. Condition: stable. No special radiology studies were completed. Property given to [facility] staff. 19:27 Patient left the ED. [facility] Addendum: 04/28/2016 08:45 Narrative: Pre auth approved by Ny Wang\\ VIJAY for 5 days; 04/25- and review rb 04/29/16 with Tanja Wang\\ #[phone]. Auth#[id number]. Signatures: Ericka Roblero, PSA PSA rb Edwin Jain, PSA PSA Clem Narayan, KST OPERATOR KST OPERATOR Brenda Stringer Jessica, RN RN Pedro Crowe Demeishia dem1 McLear, Joleen, CAPTAIN ROOM SERVICE CAPTAIN ROOM SERVICE tmm1 Maguire,WagnerSAL tse RN, Mandy, RN RN mlc Redder, Kathie klr Corrections: (The following items were deleted from the chart) 04/25 17:33 17:06 Neurological: Level of Consciousness is awake, alert, listless, Oriented to b person, place, time, jmb Chart Complete MTDD
--- NOTE | 2016-04-28 09:06 | EDDOCDS ---
Physician Documentation [facility] Name: Toni Aranda Age: 40 yrs Sex: Male : 1975 Arrival Date: 04/25/2016 Time: 15:43 Bed BHU1 Private MD: Lizzette Quarles Disposition: 04/25/16 17:27 Hospitalization ordered by Sanchez Busby for Inpatient Admission. Preliminary diagnosis are Suicidal ideations, Adjustment disorder with depressed mood. - Bed requested for Admit. - Status is Inpatient Admission. mlc - Condition is Stable. - Problem is an ongoing problem. - Symptoms have worsened. Historical: - Allergies: no known allergies; - Home Meds: 1. Viibryd 20 mg oral tab once daily 2. divalproex 500 mg oral Tb24 2 tabs nightly 3. quetiapine 400 mg oral tab nightly 4. simvastatin 20 mg Oral tab 1 tab once daily 5. Vitamin D Oral 50,000 unit weekly - PMHx: Hypercholesterolemia; Depression; mood d/o; - PSHx: none; - Social history: Smoking status: Patient uses tobacco products, current every day smoker. No barriers to communication noted, The patient speaks fluent Cape Verdean. - Family history: Not pertinent. - : The pt / caregiver states he / she is not on anticoagulants. Home medication list is obtained from pill bottles. - Exposure Risk Screening:: None identified. Vital Signs: 04/25 15:44 BP 161 / 94; Pulse 104; Resp 18; Temp 98.3(O); Pulse Ox 96% on R/A; Weight 86.18 kg / dem1 189.99 lbs; Height 5 ft. 6 in. (167.64 cm); Pain 0/10; 17:31 BP 133 / 79; Pulse 96; Resp 18; Temp 98.2(O); Pulse Ox 96% on R/A; Pain 0/10; jmb 19:11 BP 134 / 83; Pulse 104; Resp 18; Temp 97.8; Pulse Ox 94% ; Pain 0/10; mas 15:44 Body Mass Index 30.67 (86.18 kg, 167.64 cm) dem1 MDM: 16:17 Consult PFS/PSA/Slurry Tank Tender ordered. richardson 16:17 Consult PFS/PSA/Slurry Tank Tender: Patient's case requires discussion with on-call richardson Psychiatrist ordered. 16:17 PSA/PFS to call Nursing Government Relations Analyst, to enter patient data [place] if patient ke involuntarily admitted or transferred for SI or HI ordered. 16:17 Confirm accurate psychiatric medication list and times of last dosage ordered. ke 16:17 Detain Pt Until Medically/PFS Cleared ordered. ke 16:17 Nicotine Patch 21 mg/24 hr 1 applic Transdermal once ordered. ke 16:18 Acetaminophen Level Ordered. EDMS 16:18 Basic Metabolic Profile Ordered. EDMS 16:18 Complete Blood Count Ordered. EDMS 16:18 Drug Eval Toxicology ED Only Ordered. EDMS 16:18 Ethyl Alcohol (ethanol) Ordered. EDMS 16:18 Liver Profile Ordered. EDMS 16:18 Salicylate Level Ordered. EDMS 16:18 Thyroid Stimulating Hormone Ordered. EDMS 16:19 REGULAR+DIET ordered. EDMS 17:03 Financial registration complete. zo 17:05 [facility] Payment Agreement was scanned into [employer] and attached to record. zo 17:08 Consult PFS/PSA/Slurry Tank Tender complete. rb 17:25 Acetaminophen Level Reviewed. ke 17:25 Basic Metabolic Profile Reviewed. ke 17:25 Complete Blood Count Reviewed. ke 17:25 Drug Eval Toxicology ED Only Reviewed. ke 17:25 Salicylate Level Reviewed. ke 17:25 Thyroid Stimulating Hormone Reviewed. ke 17:25 Ethyl Alcohol (ethanol) Reviewed. ke 17:25 Liver Profile Reviewed. ke 17:28 BED REQUEST+ADM ordered. EDMS 18:28 Admit to [facility]: ordered. EDMS 18:32 PSA Outpatient Referrals was scanned into [employer] and attached to record. cs 18:45 Consult PFS/PSA/Slurry Tank Tender: Patient's case requires discussion with on-call rb Psychiatrist complete. 18:46 PSA/PFS to call Nursing Government Relations Analyst, to enter [place] data [place] if patient rb involuntarily admitted or transferred for SI or HI complete. 19:11 [facility] Legal paperwork was scanned into [employer] and attached to record. cs 21:09 T-Sheet-- Draft Copy was scanned into [employer] and attached to record. hemantr Administered Medications: 16:36 Drug: Nicotine 1 applic [nicotine 21 mg/24 hr daily transdermal patch (1 patches)] delroy Route: Transdermal; Site: right upper arm; 18:25 Follow up: Response: No Adverse Reaction jmjoselin Signatures: Dispatcher [employer] EDMS Ericka Roblero, PSA PSA rb Edwin Jain, PSA PSA cs Clem Dolan, TACK DRILLER TACK DRILLER Brenda Stringer Jessica RN RN Wagner Barnard RN RN jmb Booth, Mandy, RN RN mlc Redder, Kathie klr The chart was reviewed and I authenticate all verbal orders and agree with the evaluation and treatment provided.Attachments: 17:05 [facility] [place] Payment Agreement zo 21:09 T-Sheet-- Draft Copy klportia Chart Complete MTDD
--- NOTE | 2016-04-28 09:06 | EDDOCDS ---
Physician Documentation [facility] Name: Toni Aranda Age: 40 yrs Sex: Male : 1975 Arrival Date: 04/25/2016 Time: 15:43 Bed BHU1 Private MD: Lizzette Quarles Disposition: 04/25/16 17:27 Hospitalization ordered by Sanchez Busby for Inpatient Admission. Preliminary diagnosis are Suicidal ideations, Adjustment disorder with depressed mood. - Bed requested for Admit. - Status is Inpatient Admission. mlc - Condition is Stable. - Problem is an ongoing problem. - Symptoms have worsened. Historical: - Allergies: no known allergies; - Home Meds: 1. Viibryd 20 mg oral tab once daily 2. divalproex 500 mg oral Tb24 2 tabs nightly 3. quetiapine 400 mg oral tab nightly 4. simvastatin 20 mg Oral tab 1 tab once daily 5. Vitamin D Oral 50,000 unit weekly - PMHx: Hypercholesterolemia; Depression; mood d/o; - PSHx: none; - Social history: Smoking status: Patient uses tobacco products, current every day smoker. No barriers to communication noted, The patient speaks fluent Indonesian. - Family history: Not pertinent. - : The pt / caregiver states he / she is not on anticoagulants. Home medication list is obtained from pill bottles. - Exposure Risk Screening:: None identified. Vital Signs: 04/25 15:44 BP 161 / 94; Pulse 104; Resp 18; Temp 98.3(O); Pulse Ox 96% on R/A; Weight 86.18 kg / dem1 189.99 lbs; Height 5 ft. 6 in. (167.64 cm); Pain 0/10; 17:31 BP 133 / 79; Pulse 96; Resp 18; Temp 98.2(O); Pulse Ox 96% on R/A; Pain 0/10; jmb 19:11 BP 134 / 83; Pulse 104; Resp 18; Temp 97.8; Pulse Ox 94% ; Pain 0/10; mas 15:44 Body Mass Index 30.67 (86.18 kg, 167.64 cm) dem1 MDM: 16:17 Consult PFS/PSA/Lye Treater ordered. richardson 16:17 Consult PFS/PSA/Lye Treater: Patient's case requires discussion with on-call richardson Psychiatrist ordered. 16:17 PSA/PFS to call Nursing Hide Inspector And Sorter, to [place] if patient ke involuntarily admitted or transferred for SI or HI ordered. 16:17 Confirm accurate psychiatric medication list and times of last dosage ordered. ke 16:17 Detain Pt Until Medically/PFS Cleared ordered. ke 16:17 Nicotine Patch 21 mg/24 hr 1 applic Transdermal once ordered. ke 16:18 Acetaminophen Level Ordered. EDMS 16:18 Basic Metabolic Profile Ordered. EDMS 16:18 Complete Blood Count Ordered. EDMS 16:18 Drug Eval Toxicology ED Only Ordered. EDMS 16:18 Ethyl Alcohol (ethanol) Ordered. EDMS 16:18 Liver Profile Ordered. EDMS 16:18 Salicylate Level Ordered. EDMS 16:18 Thyroid Stimulating Hormone Ordered. EDMS 16:19 REGULAR+DIET ordered. EDMS 17:03 Financial registration complete. zo 17:05 [facility] Payment Agreement was scanned into [email or web address] and attached to record. zo 17:08 Consult PFS/PSA/Lye Treater complete. rb 17:25 Acetaminophen Level Reviewed. ke 17:25 Basic Metabolic Profile Reviewed. ke 17:25 Complete Blood Count Reviewed. ke 17:25 Drug Eval Toxicology ED Only Reviewed. ke 17:25 Salicylate Level Reviewed. ke 17:25 Thyroid Stimulating Hormone Reviewed. ke 17:25 Ethyl Alcohol (ethanol) Reviewed. ke 17:25 Liver Profile Reviewed. ke 17:28 BED REQUEST+ADM ordered. EDMS 18:28 Admit to [facility]: ordered. EDMS 18:32 PSA Outpatient Referrals was scanned into [email or web address] and attached to record. cs 18:45 Consult PFS/PSA/Lye Treater: Patient's case requires discussion with on-call rb Psychiatrist complete. 18:46 PSA/PFS to call Nursing Hide Inspector And Sorter, to [place] if patient rb involuntarily admitted or transferred for SI or HI complete. 19:11 [facility] Legal paperwork was scanned into [email or web address] and attached to record. cs 21:09 T-Sheet-- Draft Copy was scanned into [email or web address] and attached to record. hemantr Administered Medications: 16:36 Drug: Nicotine 1 applic [nicotine 21 mg/24 hr daily transdermal patch (1 patches)] delroy Route: Transdermal; Site: right upper arm; 18:25 Follow up: Response: No Adverse Reaction jmjoselin Signatures: Dispatcher [employer] EDMS Ericka Roblero, PSA PSA rb Edwin Jain, PSA PSA cs Clem Dolan, RATOPRINTER RATOPRINTER Brenda Stringer Jessica RN RN Wagner Barnard RN RN jmb Booth, Mandy, RN RN mlc Redder, Kathie klr The chart was reviewed and I authenticate all verbal orders and agree with the evaluation and treatment provided.Attachments: 17:05 [facility] [place] Payment Agreement zo 21:09 T-Sheet-- Draft Copy klportia Chart Complete MTDD
[2016-04-28] MEDS: NICOTINE 21MG/24HR 1 EA TRANSDERMAL TD SCH (09:25)
[2016-04-28 18:00] VITALS: BP 132/80
[2016-04-28] MEDS: SIMVASTATIN 20 MG TAB PO SCH (20:04)
[2016-04-28] MEDS: QUEtiapine FUMARATE 100 MG TAB PO SCH (20:04)
[2016-04-28] MEDS: DIVALPROEX 250 MG TAB PO SCH (20:04)
[2016-04-28] MEDS: ACETAMINOPHEN TAB 650MG DOSE (2X325MG) PO PRN (20:06)
[2016-04-29 06:32] VITALS: BP 118/65
[2016-04-29] MEDS: NICOTINE 21MG/24HR 1 EA TRANSDERMAL TD SCH (08:43)
[2016-04-29 18:00] VITALS: BP 134/78
[2016-04-29] MEDS: DIVALPROEX 250 MG TAB PO SCH (21:19)
[2016-04-29] MEDS: QUEtiapine FUMARATE 100 MG TAB PO SCH (21:19)
[2016-04-29] MEDS: SIMVASTATIN 20 MG TAB PO SCH (21:19)
--- NOTE | 2016-04-29 22:40 | ECGEPIP ---
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
[2016-04-30 06:34] VITALS: BP 109/60
[2016-04-30] MEDS: NICOTINE 21MG/24HR 1 EA TRANSDERMAL TD SCH (08:44)
--- NOTE | 2016-04-30 11:42 | IPN ---
DATE OF SERVICE: 04/29/2016 This visit was an introductory visit, introducing myself as his new inpatient psychiatrist and also involved a review of the patient's present and past psychosocial and biological history. Subjectively, the patient states at this time he is feeling better but is still dysphoric at times. These time relate to his rumination about the breakup of a romantic relationship a couple weeks ago. The patient believes that he will be able to cope with this loss. He denies thoughts of lethal behavior. This patient claims that his meditative functioning is normalizing, especially his sleep. Objectively, the patient is appropriately in hospital dress with good grooming. Interview behavior was appropriate. Speech was articulate. No evidence of dysphonia. Mood: The patient states that is nearing euthymia. Affect: Appropriate to the interview topics. Thought process: Thoughts were lucid, linear, logical, goal-directed. Thought content: No suicidal or psychotic ideation was evident. The patient denied perceptual disturbances. His insight was fair. Judgment good. Impulse control appropriate. Cognition was within normal limits. No evidence of neurological focality. ASSESSMENT: Compared to the patient's acute depressive state on admission, his mood is responding well to his current psychotropic regimen and the therapeutic milieu. Assessment-holt, he is heading in the right direction. His discharge planning will be discussed at length during tomorrow's visit. No changes are needed in his psychosocial or his psychotropic management. I do not consider this patient a serious lethal risk. Edited 04/30/2016 aml
[2016-04-30 18:00] VITALS: BP 141/84
[2016-04-30] MEDS: DIVALPROEX 250 MG TAB PO SCH (21:50)
[2016-04-30] MEDS: QUEtiapine FUMARATE 100 MG TAB PO SCH (21:50)
[2016-04-30] MEDS: SIMVASTATIN 20 MG TAB PO SCH (21:50)
[2016-05-01 06:21] VITALS: BP 118/66
[2016-05-01] MEDS: NICOTINE 21MG/24HR 1 EA TRANSDERMAL TD SCH (09:01)
[2016-05-01 18:00] VITALS: BP 138/79
[2016-05-01] MEDS: SIMVASTATIN 20 MG TAB PO SCH (21:14)
[2016-05-01] MEDS: QUEtiapine FUMARATE 100 MG TAB PO SCH (21:15)
[2016-05-01] MEDS: DIVALPROEX 250 MG TAB PO SCH (21:15)
[2016-05-01] MEDS: ACETAMINOPHEN TAB 650MG DOSE (2X325MG) PO PRN (21:17)
[2016-05-02 07:06] VITALS: BP 109/61
[2016-05-02] MEDS ORDERED: NICO21PAT TD (08:06)
[2016-05-02] MEDS: NICOTINE 21MG/24HR 1 EA TRANSDERMAL TD SCH (08:16)
[2016-05-02] MEDS ORDERED: QUET1TAB8 PO (14:40)
[2016-05-02] MEDS ORDERED: TRAZO50TA PO (14:40)
[2016-05-02] MEDS ORDERED: DEPA250T32 PO (14:40)
== END 2016-05-02 15:15 | disposition home or self-care (01) | DRG 750 ==
LOC: M ED 15:43 → M PSY 19:32
PROVIDERS: ADMIT Psychiatry & Neurology Psychiatry; ATTEND Psychiatry & Neurology Psychiatry
DX: F25.9 Schizoaffective disorder, unspecified (principal); E78.00 Pure hypercholesterolemia, unspecified; Z79.899 Other long term (current) drug therapy; F17.210 Nicotine dependence, cigarettes, uncomplicated

== ENCOUNTER → 2016-10-01 | Outpatient (CLI) | payer OTHER ==
[~2016-10-01] MED LIST: DEPA250T32 PO; DIVA500T3 PO; DRIS50002 PO; NICO21PAT TD; QUET1TAB8 PO; QUET400T PO; SIMV20TA2 PO; TRAZO50TA PO; VIIB20TA PO
[2016-10-01 16:16] LABS: ALBUMIN 3.9 GM/DL (3.2-5.2); ALBUMIN/GLOBULIN RATIO 1.39 (1.00-1.93); ALKALINE PHOSPHATASE 58 U/L (45-117); ALT/SGPT 28 U/L (12-78); ANION GAP 10 MEQ/L (8-16); AST/SGOT 15 U/L (15-37); BILIRUBIN,TOTAL 0.6 MG/DL (0.2-1.0); BLOOD UREA NITROGEN 8 MG/DL (7-18); CALCIUM LEVEL 8.8 MG/DL (8.5-10.1); CARBON DIOXIDE LEVEL 24 MEQ/L (21-32); CHLORIDE LEVEL 105 MEQ/L (98-107); CHOLESTEROL LEVEL 184 MG/DL (<200); CREATININE FOR GFR 0.96 MG/DL (0.70-1.30); GLOMERULAR FILTRATION RATE > 60.0 (>60); GLUCOSE, FASTING 92 MG/DL (70-105); POTASSIUM SERUM 4.2 MEQ/L (3.5-5.1); SODIUM LEVEL 139 MEQ/L (136-145); TOTAL PROTEIN 6.7 GM/DL (6.4-8.2); TRIGLYCERIDES LEVEL 133 MG/DL (<150)
[2016-10-01 21:39] LABS: VITAMIN B12 LEVEL 390 PG/ML (247-911)
== END ==
LOC: M LAB 15:01
PROVIDERS: ATTEND Registered Nurse Psychiatric/Mental Health
DX: F25.9 Schizoaffective disorder, unspecified (principal)

== ENCOUNTER 2017-04-11 19:18 | Emergency (ER) | payer OTHER ==
[2017-04-11 19:54] LABS: HEMATOCRIT 45.8 % (42.0-52.0); HEMOGLOBIN 16.2 g/dl (14.0-18.0); MEAN CORPUSCULAR HEMOGLOBIN 32.8 pg (27.0-33.0); MEAN CORPUSCULAR HGB CONC 35.4 g/dl (32.0-36.5); MEAN CORPUSCULAR VOLUME 92.7 fl (80.0-96.0); PLATELET COUNT, AUTOMATED 223 10^3/uL (150-450); RED BLOOD COUNT 4.94 10^6/uL (4.30-6.10); RED CELL DISTRIBUTION WIDTH 13.2 % (11.5-14.5); WHITE BLOOD COUNT 7.8 10^3/uL (4.0-10.0)
[2017-04-11 20:10] LABS: ALBUMIN/GLOBULIN RATIO 1.18 (1.00-1.93); ALKALINE PHOSPHATASE 76 U/L (45-117); ALT/SGPT 41 U/L (12-78); ANION GAP 11 MEQ/L (8-16); AST/SGOT 19 U/L (7-37); BILIRUBIN,DIRECT < 0.1 MG/DL (0.0-0.2); BILIRUBIN,TOTAL 0.4 MG/DL (0.2-1.0); BLOOD UREA NITROGEN 13 MG/DL (7-18); CALCIUM LEVEL 8.4 MG/DL (8.5-10.1); CARBON DIOXIDE LEVEL 23 MEQ/L (21-32); CHLORIDE LEVEL 106 MEQ/L (98-107); CREATININE FOR GFR 1.08 MG/DL (0.70-1.30); ETHYL ALCOHOL (ETHANOL) 0.072 % (0.000-0.010); GLOMERULAR FILTRATION RATE > 60.0 (>60); GLUCOSE, FASTING 128 MG/DL (70-100); POTASSIUM SERUM 3.6 MEQ/L (3.5-5.1); SALICYLATE LEVEL 3.5 MG/DL (5.0-30.0); SODIUM LEVEL 140 MEQ/L (136-145); TOTAL PROTEIN 7.4 GM/DL (6.4-8.2)
[2017-04-11 20:14] LABS: ACETAMINOPHEN LEVEL < 2.0 UG/ML (10.0-30.0)
[2017-04-11 20:23] LABS: AMPHETAMINES LEVEL URINE NEGATIVE (NEGATIVE); BARBITURATES URINE NEGATIVE (NEGATIVE); BENZODIAZEPINES URINE NEGATIVE (NEGATIVE); CANNABINOIDS URINE POSITIVE (NEGATIVE); COCAINE METABOLITE URINE NEGATIVE (NEGATIVE); METHADONE URINE NEGATIVE (NEGATIVE); OPIATES URINE NEGATIVE (NEGATIVE); PHENCYCLIDINE URINE NEGATIVE (NEGATIVE)
== END 2017-04-11 21:21 | disposition home or self-care (01) ==
LOC: M ED 19:18
DX: F32.9 Major depressive disorder, single episode, unspecified (principal); F20.9 Schizophrenia, unspecified; F10.10 Alcohol abuse, uncomplicated; R45.851 Suicidal ideations; F17.200 Nicotine dependence, unspecified, uncomplicated; Z79.899 Other long term (current) drug therapy
CPT/HCPCS: 80320

== ENCOUNTER → 2017-07-12 | Outpatient (CLI) | payer OTHER ==
[2017-07-12 10:25] LABS: BASO # 0.1 10^3/uL (0.0-0.2); BASO % 0.8 % (0.0-1.0); EOS % 12.7 % (0.0-3.0); HEMATOCRIT 45.1 % (42.0-52.0); HEMOGLOBIN 15.8 g/dl (13.5-17.5); IMMATURE GRANULOCYTE # 0.1 10^3/uL (0-0); IMMATURE GRANULOCYTE % 0.6 % (0-3.0); LYMPH # 1.6 10^3/uL (1.5-4.5); LYMPH % 20.1 % (24.0-44.0); MEAN CORPUSCULAR HEMOGLOBIN 33.8 pg (27.0-33.0); MEAN CORPUSCULAR VOLUME 96.4 fl (80.0-96.0); MONO # 0.6 10^3/uL (0.0-0.8); MONO % 7.9 % (0.0-5.0); NEUTROPHILS # 4.5 10^3/uL (1.8-7.7); NEUTROPHILS % 57.9 % (36.0-66.0); PLATELET COUNT, AUTOMATED 212 10^3/uL (150-450); RED BLOOD COUNT 4.68 10^6/uL (4.30-6.10); RED CELL DISTRIBUTION WIDTH 13.6 % (11.5-14.5); WHITE BLOOD COUNT 7.8 10^3/uL (4.0-10.0)
[2017-07-12 11:10] LABS: ALBUMIN 3.8 GM/DL (3.2-5.2); ALBUMIN/GLOBULIN RATIO 1.15 (1.00-1.93); ALKALINE PHOSPHATASE 71 U/L (45-117); ALT/SGPT 28 U/L (12-78); ANION GAP 7 MEQ/L (8-16); AST/SGOT 16 U/L (7-37); BILIRUBIN,TOTAL 0.5 MG/DL (0.2-1.0); BLOOD UREA NITROGEN 9 MG/DL (7-18); CALCIUM LEVEL 8.6 MG/DL (8.5-10.1); CARBON DIOXIDE LEVEL 25 MEQ/L (21-32); CHLORIDE LEVEL 109 MEQ/L (98-107); CHOLESTEROL LEVEL 197 MG/DL (<200); CHOLESTEROL RISK RATIO 2.118 (<5); CREATININE FOR GFR 1.04 MG/DL (0.70-1.30); FREE T4 0.76 NG/DL (0.76-1.46); GLOMERULAR FILTRATION RATE > 60.0 (>60); GLUCOSE, FASTING 86 MG/DL (70-100); HDL CHOLESTEROL 93 MG/DL (>40); LDL CHOLESTEROL 62.2 MG/DL (<100); NON-HDL-C 104 MG/DL; POTASSIUM SERUM 4.4 MEQ/L (3.5-5.1); SODIUM LEVEL 141 MEQ/L (136-145); TOTAL PROTEIN 7.1 GM/DL (6.4-8.2); TRIGLYCERIDES LEVEL 209 MG/DL (<150)
[2017-07-12 11:18] LABS: ESTIMATED AVERAGE GLUCOSE 111 MG/DL (60-110); HEMOGLOBIN A1c 5.5 %
[2017-07-14 09:59] LABS: TOTAL 25(OH) VITAMIN D 20.8 NG/ML (30.0-100.0)
== END ==
LOC: M LAB 09:14
DX: E55.9 Vitamin D deficiency, unspecified (principal)
CPT/HCPCS: 84443

== ENCOUNTER → 2017-12-07 | Outpatient (CLI) | payer OTHER ==
[2017-12-07 11:07] LABS: BASO # 0.1 10^3/uL (0.0-0.2); BASO % 0.8 % (0.0-1.0); EOS # 0.8 10^3/uL (0.0-0.50); EOS % 9.7 % (0.0-3.0); HEMOGLOBIN 16.6 g/dl (13.5-17.5); IMMATURE GRANULOCYTE % 0.3 % (0-3.0); LYMPH # 1.4 10^3/uL (1.5-4.5); LYMPH % 17.4 % (24.0-44.0); MEAN CORPUSCULAR HEMOGLOBIN 34.4 pg (27.0-33.0); MEAN CORPUSCULAR HGB CONC 34.6 g/dl (32.0-36.5); MEAN CORPUSCULAR VOLUME 99.6 fl (80.0-96.0); MONO # 0.6 10^3/uL (0.0-0.8); MONO % 7.3 % (0.0-5.0); NEUTROPHILS # 5.1 10^3/uL (1.8-7.7); NEUTROPHILS % 64.5 % (36.0-66.0); PLATELET COUNT, AUTOMATED 215 10^3/uL (150-450); RED BLOOD COUNT 4.82 10^6/uL (4.30-6.10); RED CELL DISTRIBUTION WIDTH 12.3 % (11.5-14.5); WHITE BLOOD COUNT 7.8 10^3/uL (4.0-10.0)
[2017-12-07 11:33] LABS: ALBUMIN 3.8 GM/DL (3.2-5.2); ALBUMIN/GLOBULIN RATIO 1.27 (1.00-1.93); ALKALINE PHOSPHATASE 62 U/L (45-117); ALT/SGPT 47 U/L (12-78); ANION GAP 7 MEQ/L (8-16); AST/SGOT 18 U/L (7-37); BILIRUBIN,DIRECT 0.2 MG/DL (0.0-0.2); BILIRUBIN,TOTAL 0.7 MG/DL (0.2-1.0); BLOOD UREA NITROGEN 9 MG/DL (7-18); CALCIUM LEVEL 8.7 MG/DL (8.5-10.1); CARBON DIOXIDE LEVEL 27 MEQ/L (21-32); CHLORIDE LEVEL 109 MEQ/L (98-107); CHOLESTEROL LEVEL 181 MG/DL (<200); CHOLESTEROL RISK RATIO 5.484 (<5); GLOMERULAR FILTRATION RATE > 60.0 (>60); GLUCOSE, FASTING 84 MG/DL (70-100); GLUCOSE,RANDOM 84 MG/DL (LESS THAN 200); HDL CHOLESTEROL 33 MG/DL (>40); NON-HDL-C 148 MG/DL; POTASSIUM SERUM 4.3 MEQ/L (3.5-5.1); SODIUM LEVEL 143 MEQ/L (136-145); THYROID STIMULATING HORMONE 0.961 uIU/ML (0.358-3.740); TOTAL 25(OH) VITAMIN D 27.2 NG/ML (30.0-100.0); TOTAL PROTEIN 6.8 GM/DL (6.4-8.2)
[2017-12-07 11:47] LABS: LDL CHOLESTEROL 119 MG/DL (<100); TRIGLYCERIDES LEVEL 146 MG/DL (<150)
[2017-12-07 12:30] LABS: ESTIMATED AVERAGE GLUCOSE 105 MG/DL (60-110); HEMOGLOBIN A1c 5.3 %
== END ==
LOC: M LAB 09:36
DX: F25.0 Schizoaffective disorder, bipolar type (principal)
CPT/HCPCS: 93005

== ENCOUNTER → 2018-04-11 | Outpatient (CLI) | payer OTHER ==
[~2018-04-11] MED LIST changes: -DIVA500T3 PO; +DIVA500T94 PO; -DRIS50002 PO; +DRIS50003 PO; +INVE156I; +INVE234I
[2018-04-11 11:04] LABS: BASO % 0.6 % (0.0-1.0); EOS # 0.8 10^3/uL (0.0-0.50); EOS % 10.6 % (0.0-3.0); HEMATOCRIT 46.8 % (42.0-52.0); LYMPH # 1.6 10^3/uL (1.5-4.5); LYMPH % 22.6 % (24.0-44.0); MEAN CORPUSCULAR HEMOGLOBIN 34.6 pg (27.0-33.0); MEAN CORPUSCULAR HGB CONC 34.2 g/dl (32.0-36.5); MEAN CORPUSCULAR VOLUME 101.3 fl (80.0-96.0); MONO # 0.6 10^3/uL (0.0-0.8); MONO % 8.5 % (0.0-5.0); NEUTROPHILS # 4.1 10^3/uL (1.8-7.7); NEUTROPHILS % 57.1 % (36.0-66.0); PLATELET COUNT, AUTOMATED 197 10^3/uL (150-450); RED BLOOD COUNT 4.62 10^6/uL (4.30-6.10); WHITE BLOOD COUNT 7.1 10^3/uL (4.0-10.0)
[2018-04-11 11:22] LABS: HEMOGLOBIN A1c 5.3 %
[2018-04-11 11:34] LABS: ALBUMIN 3.7 GM/DL (3.2-5.2); ALT/SGPT 56 U/L (12-78); BILIRUBIN,TOTAL 0.5 MG/DL (0.2-1.0); BLOOD UREA NITROGEN 8 MG/DL (7-18); CALCIUM LEVEL 8.6 MG/DL (8.5-10.1); CARBON DIOXIDE LEVEL 25 MEQ/L (21-32); CHLORIDE LEVEL 106 MEQ/L (98-107); CHOLESTEROL LEVEL 171 MG/DL (<200); CHOLESTEROL RISK RATIO 3.226 (<5); CREATININE FOR GFR 0.88 MG/DL (0.70-1.30); GLOMERULAR FILTRATION RATE > 60.0 (>60); GLUCOSE, FASTING 91 MG/DL (70-100); HDL CHOLESTEROL 53 MG/DL (>40); LDL CHOLESTEROL 83 MG/DL (<100); NON-HDL-C 118 MG/DL; POTASSIUM SERUM 4.2 MEQ/L (3.5-5.1); SODIUM LEVEL 139 MEQ/L (136-145); THYROID STIMULATING HORMONE 0.777 uIU/ML (0.358-3.740); TOTAL PROTEIN 6.6 GM/DL (6.4-8.2); TRIGLYCERIDES LEVEL 173 MG/DL (<150)
[2018-04-12 09:49] LABS: TOTAL 25(OH) VITAMIN D 42.8 NG/ML (30.0-100.0)
== END ==
LOC: M LAB 10:40
PROVIDERS: ATTEND Nurse Practitioner Adult Health
DX: F20.9 Schizophrenia, unspecified (principal); E78.00 Pure hypercholesterolemia, unspecified; F31.9 Bipolar disorder, unspecified; F10.10 Alcohol abuse, uncomplicated; E55.9 Vitamin D deficiency, unspecified; Z79.899 Other long term (current) drug therapy

== ENCOUNTER → 2018-07-07 | Outpatient (CLI) | payer OTHER ==
[2018-07-07 09:52] LABS: BASO % 0.6 % (0.0-1.0); EOS # 0.7 10^3/uL (0.0-0.50); EOS % 11.6 % (0.0-3.0); HEMATOCRIT 45.9 % (42.0-52.0); HEMOGLOBIN 15.6 g/dl (13.5-17.5); LYMPH # 1.2 10^3/uL (1.5-4.5); LYMPH % 18.9 % (24.0-44.0); MEAN CORPUSCULAR HEMOGLOBIN 34.6 pg (27.0-33.0); MEAN CORPUSCULAR VOLUME 101.8 fl (80.0-96.0); MONO # 0.5 10^3/uL (0.0-0.8); MONO % 7.8 % (0.0-5.0); NEUTROPHILS # 3.9 10^3/uL (1.8-7.7); NEUTROPHILS % 60.5 % (36.0-66.0); PLATELET COUNT, AUTOMATED 198 10^3/uL (150-450); RED BLOOD COUNT 4.51 10^6/uL (4.30-6.10); WHITE BLOOD COUNT 6.4 10^3/uL (4.0-10.0)
[2018-07-07 10:11] LABS: HEMOGLOBIN A1c 5.3 %
[2018-07-07 10:24] LABS: ALBUMIN 3.9 GM/DL (3.2-5.2); ALT/SGPT 31 U/L (12-78); BILIRUBIN,TOTAL 0.7 MG/DL (0.2-1.0); BLOOD UREA NITROGEN 10 MG/DL (7-18); CARBON DIOXIDE LEVEL 25 MEQ/L (21-32); CHLORIDE LEVEL 109 MEQ/L (98-107); CHOLESTEROL LEVEL 166 MG/DL (<200); CHOLESTEROL RISK RATIO 3.192 (<5); CREATININE FOR GFR 0.88 MG/DL (0.70-1.30); GLOMERULAR FILTRATION RATE > 60.0 (>60); GLUCOSE, FASTING 101 MG/DL (70-100); HDL CHOLESTEROL 52 MG/DL (>40); LDL CHOLESTEROL 75 MG/DL (<100); NON-HDL-C 114 MG/DL; POTASSIUM SERUM 3.9 MEQ/L (3.5-5.1); SODIUM LEVEL 140 MEQ/L (136-145); TOTAL 25(OH) VITAMIN D 45.9 NG/ML (30.0-100.0); TOTAL PROTEIN 6.6 GM/DL (6.4-8.2); TRIGLYCERIDES LEVEL 193 MG/DL (<150)
== END ==
LOC: M LAB 09:10
PROVIDERS: ATTEND Nurse Practitioner Adult Health
DX: E78.00 Pure hypercholesterolemia, unspecified (principal); F31.9 Bipolar disorder, unspecified; F20.9 Schizophrenia, unspecified; E55.9 Vitamin D deficiency, unspecified

== ENCOUNTER → 2018-10-16 | Outpatient (CLI) | payer OTHER ==
[~2018-10-16] MED LIST changes: +TRAZ1TAB10 PO; -TRAZO50TA PO
[2018-10-16 11:04] LABS: BASO # 0.1 10^3/uL (0.0-0.2); BASO % 0.5 % (0.0-1.0); EOS # 0.5 10^3/uL (0.0-0.50); EOS % 5.2 % (0.0-3.0); HEMATOCRIT 43.5 % (42.0-52.0); HEMOGLOBIN 14.7 g/dl (13.5-17.5); LYMPH # 1.4 10^3/uL (1.5-4.5); LYMPH % 14.6 % (24.0-44.0); MEAN CORPUSCULAR HGB CONC 33.8 g/dl (32.0-36.5); MEAN CORPUSCULAR VOLUME 100.7 fl (80.0-96.0); MONO # 0.7 10^3/uL (0.0-0.8); MONO % 7.5 % (0.0-5.0); NEUTROPHILS # 6.6 10^3/uL (1.8-7.7); NEUTROPHILS % 71.7 % (36.0-66.0); PLATELET COUNT, AUTOMATED 233 10^3/uL (150-450); RED BLOOD COUNT 4.32 10^6/uL (4.30-6.10); WHITE BLOOD COUNT 9.3 10^3/uL (4.0-10.0)
[2018-10-16 11:25] LABS: HEMOGLOBIN A1c 5.3 %
[2018-10-16 11:46] LABS: ALBUMIN 3.8 GM/DL (3.2-5.2); ALT/SGPT 33 U/L (12-78); BILIRUBIN,TOTAL 0.5 MG/DL (0.2-1.0); BLOOD UREA NITROGEN 11 MG/DL (7-18); CALCIUM LEVEL 9.2 MG/DL (8.5-10.1); CARBON DIOXIDE LEVEL 26 MEQ/L (21-32); CHLORIDE LEVEL 108 MEQ/L (98-107); CHOLESTEROL LEVEL 178 MG/DL (<200); CHOLESTEROL RISK RATIO 2.966 (<5); CREATININE FOR GFR 1.07 MG/DL (0.70-1.30); GLOMERULAR FILTRATION RATE > 60.0 (>60); GLUCOSE, FASTING 88 MG/DL (70-100); HDL CHOLESTEROL 60 MG/DL (>40); LDL CHOLESTEROL 99 MG/DL (<100); NON-HDL-C 118 MG/DL; POTASSIUM SERUM 4.4 MEQ/L (3.5-5.1); SODIUM LEVEL 139 MEQ/L (136-145); TOTAL PROTEIN 6.9 GM/DL (6.4-8.2); TRIGLYCERIDES LEVEL 94 MG/DL (<150)
[2018-10-18 11:27] LABS: TOTAL 25(OH) VITAMIN D 38.9 NG/ML (30.0-100.0)
== END ==
LOC: M LAB 10:17
PROVIDERS: ATTEND Nurse Practitioner Adult Health
DX: E78.00 Pure hypercholesterolemia, unspecified (principal); F31.9 Bipolar disorder, unspecified; F20.9 Schizophrenia, unspecified; E55.9 Vitamin D deficiency, unspecified

== ENCOUNTER → 2018-10-16 | Outpatient (CLI) | payer OTHER ==
[2018-10-16 11:06] LABS: BASO % 0.4 % (0.0-1.0); EOS # 0.5 10^3/uL (0.0-0.50); EOS % 5.1 % (0.0-3.0); HEMATOCRIT 43.3 % (42.0-52.0); HEMOGLOBIN 14.7 g/dl (13.5-17.5); LYMPH # 1.3 10^3/uL (1.5-4.5); LYMPH % 13.9 % (24.0-44.0); MEAN CORPUSCULAR HEMOGLOBIN 34.1 pg (27.0-33.0); MEAN CORPUSCULAR HGB CONC 33.9 g/dl (32.0-36.5); MEAN CORPUSCULAR VOLUME 100.5 fl (80.0-96.0); MONO # 0.7 10^3/uL (0.0-0.8); MONO % 7.6 % (0.0-5.0); NEUTROPHILS % 72.7 % (36.0-66.0); PLATELET COUNT, AUTOMATED 242 10^3/uL (150-450); RED BLOOD COUNT 4.31 10^6/uL (4.30-6.10); WHITE BLOOD COUNT 9.6 10^3/uL (4.0-10.0)
[2018-10-16 11:44] LABS: ALBUMIN 3.8 GM/DL (3.2-5.2); ALT/SGPT 34 U/L (12-78); BILIRUBIN,DIRECT 0.2 MG/DL (0.0-0.2); BILIRUBIN,TOTAL 0.4 MG/DL (0.2-1.0); BLOOD UREA NITROGEN 11 MG/DL (7-18); CARBON DIOXIDE LEVEL 26 MEQ/L (21-32); CHLORIDE LEVEL 108 MEQ/L (98-107); CHOLESTEROL LEVEL 175 MG/DL (<200); CHOLESTEROL RISK RATIO 2.822 (<5); CREATININE FOR GFR 1.01 MG/DL (0.70-1.30); GLOMERULAR FILTRATION RATE > 60.0 (>60); GLUCOSE, FASTING 88 MG/DL (70-100); HDL CHOLESTEROL 62 MG/DL (>40); LDL CHOLESTEROL 94 MG/DL (<100); NON-HDL-C 113 MG/DL; POTASSIUM SERUM 4.4 MEQ/L (3.5-5.1); SODIUM LEVEL 141 MEQ/L (136-145); TOTAL PROTEIN 6.9 GM/DL (6.4-8.2); TRIGLYCERIDES LEVEL 96 MG/DL (<150)
--- NOTE | 2018-10-16 16:24 | ECGEPIP ---
[facility] Test Date: 2018-10-16 Pat Name: FRED BENNETT Department: Room: - Gender: Male Front End Ui Developer: JENNI : 1975 Requested By: Tia SAMANIEGO Order Number: [id number] Reading MD: Elvis Solorzano Measurements Intervals [place] Rate: 97 P: 65 VT: 149 QRS: 61 QRSD: 86 T: 42 QT: 327 QTc: 416 Interpretive Statements SINUS RHYTHM COMPARED TO THE LAST 2 TRACINGS, HEART RATE IS FASTER OTHERWISE NO REMARKABLE CHANGES Electronically Signed on 10-16-2018 16:23:57 EDT by Elvis Solorzano
[2018-10-18 11:32] LABS: TOTAL 25(OH) VITAMIN D 36.2 NG/ML (30.0-100.0)
== END ==
LOC: M LAB 10:15
PROVIDERS: ATTEND Nurse Practitioner Psychiatric/Mental Health
DX: Z79.899 Other long term (current) drug therapy (principal)

== ENCOUNTER → 2019-01-15 | Outpatient (CLI) | payer OTHER ==
[2019-01-15 11:27] LABS: BASO % 0.7 % (0.0-1.0); EOS # 0.9 10^3/uL (0.0-0.5); EOS % 16.3 % (0.0-3.0); HEMATOCRIT 45.8 % (42.0-52.0); HEMOGLOBIN 15.1 g/dl (13.5-17.5); LYMPH # 1.4 10^3/uL (1.5-5.0); LYMPH % 24.7 % (24.0-44.0); MEAN CORPUSCULAR HEMOGLOBIN 33.3 pg (27.0-33.0); MEAN CORPUSCULAR VOLUME 101.1 fl (80.0-96.0); MONO # 0.5 10^3/uL (0.0-0.8); MONO % 8.1 % (0.0-5.0); NEUTROPHILS # 2.8 10^3/uL (1.5-8.5); NEUTROPHILS % 49.7 % (36.0-66.0); PLATELET COUNT, AUTOMATED 193 10^3/uL (150-450); RED BLOOD COUNT 4.53 10^6/uL (4.30-6.10); WHITE BLOOD COUNT 5.6 10^3/uL (4.0-10.0)
[2019-01-15 11:42] LABS: HEMOGLOBIN A1c 5.7 %
[2019-01-15 12:21] LABS: ALBUMIN 3.7 GM/DL (3.2-5.2); ALT/SGPT 42 U/L (12-78); BILIRUBIN,TOTAL 0.7 MG/DL (0.2-1.0); BLOOD UREA NITROGEN 7 MG/DL (7-18); CALCIUM LEVEL 8.9 MG/DL (8.5-10.1); CARBON DIOXIDE LEVEL 29 MEQ/L (21-32); CHLORIDE LEVEL 110 MEQ/L (98-107); CHOLESTEROL LEVEL 151 MG/DL (<200); CHOLESTEROL RISK RATIO 3.145 (<5); CREATININE FOR GFR 1.21 MG/DL (0.70-1.30); GLOMERULAR FILTRATION RATE > 60.0 (>60); GLUCOSE, FASTING 88 MG/DL (70-100); HDL CHOLESTEROL 48 MG/DL (>40); LDL CHOLESTEROL 77 MG/DL (<100); NON-HDL-C 103 MG/DL; POTASSIUM SERUM 4.7 MEQ/L (3.5-5.1); SODIUM LEVEL 143 MEQ/L (136-145); TOTAL PROTEIN 6.6 GM/DL (6.4-8.2); TRIGLYCERIDES LEVEL 130 MG/DL (<150)
[2019-01-17 10:36] LABS: TOTAL 25(OH) VITAMIN D 47.6 NG/ML (30.0-100.0)
== END ==
LOC: M LAB 10:15
PROVIDERS: ATTEND Nurse Practitioner Adult Health
DX: E78.00 Pure hypercholesterolemia, unspecified (principal); F31.9 Bipolar disorder, unspecified; F20.9 Schizophrenia, unspecified; E55.9 Vitamin D deficiency, unspecified

== ENCOUNTER → 2019-07-17 | Outpatient (CLI) | payer OTHER ==
[~2019-07-17] MED LIST changes: +QUET100T2 PO; -QUET1TAB8 PO; -SIMV20TA2 PO; +SIMV20TA22 PO
[2019-07-17 09:48] LABS: BASO # 0.1 10^3/uL (0.0-0.2); BASO % 0.7 % (0.0-1.0); EOS # 0.7 10^3/uL (0.0-0.5); EOS % 9.7 % (0.0-3.0); HEMATOCRIT 46.6 % (42.0-52.0); LYMPH # 1.6 10^3/uL (1.5-5.0); LYMPH % 21.2 % (24.0-44.0); MEAN CORPUSCULAR HGB CONC 34.3 g/dl (32.0-36.5); MEAN CORPUSCULAR VOLUME 99.1 fl (80.0-96.0); MONO # 0.5 10^3/uL (0.0-0.8); MONO % 7.3 % (0.0-5.0); NEUTROPHILS # 4.5 10^3/uL (1.5-8.5); NEUTROPHILS % 60.8 % (36.0-66.0); PLATELET COUNT, AUTOMATED 244 10^3/uL (150-450); WHITE BLOOD COUNT 7.4 10^3/uL (4.0-10.0)
[2019-07-17 10:03] LABS: HEMOGLOBIN A1c 5.5 %
[2019-07-17 10:17] LABS: ALBUMIN 3.5 GM/DL (3.2-5.2); ALT/SGPT 37 U/L (12-78); BILIRUBIN,TOTAL 0.4 MG/DL (0.2-1.0); BLOOD UREA NITROGEN 13 MG/DL (7-18); CALCIUM LEVEL 8.6 MG/DL (8.5-10.1); CARBON DIOXIDE LEVEL 25 MEQ/L (21-32); CHLORIDE LEVEL 109 MEQ/L (98-107); CHOLESTEROL LEVEL 147 MG/DL (<200); CHOLESTEROL RISK RATIO 3.868 (<5); CREATININE FOR GFR 1.01 MG/DL (0.70-1.30); GLOMERULAR FILTRATION RATE > 60.0 (>60); GLUCOSE, FASTING 96 MG/DL (70-100); HDL CHOLESTEROL 38 MG/DL (>40); LDL CHOLESTEROL 80 MG/DL (<100); NON-HDL-C 109 MG/DL; POTASSIUM SERUM 4.4 MEQ/L (3.5-5.1); SODIUM LEVEL 142 MEQ/L (136-145); TOTAL PROTEIN 6.5 GM/DL (6.4-8.2); TRIGLYCERIDES LEVEL 146 MG/DL (<150)
[2019-07-18 11:22] LABS: TOTAL 25(OH) VITAMIN D 52.8 NG/ML (30.0-100.0)
== END ==
LOC: M LAB 09:18
PROVIDERS: ATTEND Nurse Practitioner Adult Health
DX: E78.00 Pure hypercholesterolemia, unspecified (principal); F31.9 Bipolar disorder, unspecified; F20.9 Schizophrenia, unspecified; E55.9 Vitamin D deficiency, unspecified

== ENCOUNTER → 2019-09-06 | Outpatient (CLI) | payer OTHER ==
[~2019-09-06] MED LIST changes: +CYCL5TAB PO; +E-Z-GAS II EFFERVESCENT PACKET (SODIUM BICARB./CITRIC ACID/SIMETHICONE) As Ordered ONE; +E-Z-HD 98% w/w 340GM SUSP BTL As Ordered ONE; +E-Z-PAQUE 96% w/w SUSP 176GM BTL As Ordered ONE
--- NOTE | 2019-09-06 19:38 | REP ---
UPPER GI AIR CONTRAST AND SMALL BOWEL FOLLOW THROUGH The procedure was performed under the direct supervision of Dr. Sahu. The images were reviewed with Dr. Sahu The head of housekeeping film shows no organomegaly or pathological masses. The intestinal gas pattern is non-specific. Liquid barium and gas producing crystals were given in the erect position as well as liquid barium in the prone oblique position in order to perform a double contrast upper GI examination. Additionally liquid barium was given at the end of the examination in order to perform a small bowel follow through. The oral and pharyngeal stages of deglutition are unremarkable. Esophageal transport is prompt and efficient. There is a sliding type hiatal hernia. In there is gastroesophageal reflux demonstrated to the level of the thoracic inlet. There is mucosal irregularity at the GE junction with a possible small ulcer. Within the stomach there is retained ingested material which limits evaluation. There may be thickened folds consistent with gastritis. There are thickened folds in the duodenum which likely represent duodenitis. There is no philly ulcer identified. The visualized portion of the proximal small bowel appears normal in course and caliber. The barium column was followed through the small bowel to the level of the terminal ileum. Small bowel transit time is approximately 15 minutes . During fluoroscopy gentle palpation shows all loops are freely movable and pliable. There are no fixed or angulated loops. The small bowel mucosal pattern is normal in course and caliber. There is no transition to suggest a partial small-bowel obstruction. Spot filming of the terminal ileum shows it to be unremarkable. Impression: 1. There is a sliding type hiatal hernia. There is gastroesophageal reflux demonstrated to the level of the thoracic inlet. 2. There is mucosal irregularity at the GE junction with a possible small ulcer. 3. There is residual ingested material in the stomach which limits evaluation, however, there may be thickened folds consistent with gastritis. 4. There are thickened folds in the duodenum which likely represent duodenitis. 2.8 minutes of fluoro time was utilized for this procedure. Electronically Signed by CATRACHO Mcgrath 09/06/2019 05:09 P Electronically Signed by Savage Sahu MD 09/06/2019 07:29 P
== END ==
LOC: M RAD 10:28
PROVIDERS: ATTEND Internal Medicine Gastroenterology
DX: K52.9 Noninfective gastroenteritis and colitis, unspecified (principal); K44.9 Diaphragmatic hernia without obstruction or gangrene; K21.9 Gastro-esophageal reflux disease without esophagitis

== ENCOUNTER → 2019-10-16 | Outpatient (CLI) | payer OTHER ==
[~2019-10-16] MED LIST changes: -E-Z-GAS II EFFERVESCENT PACKET (SODIUM BICARB./CITRIC ACID/SIMETHICONE) As Ordered ONE; -E-Z-HD 98% w/w 340GM SUSP BTL As Ordered ONE; -E-Z-PAQUE 96% w/w SUSP 176GM BTL As Ordered ONE
[2019-12-04 11:41] LABS: BASO % 0.5 % (0.0-1.0); EOS # 0.8 10^3/uL (0.0-0.5); EOS % 9.7 % (0.0-3.0); HEMATOCRIT 42.9 % (42.0-52.0); HEMOGLOBIN 14.4 g/dl (13.5-17.5); LYMPH # 1.9 10^3/uL (1.5-5.0); LYMPH % 24.9 % (24.0-44.0); MEAN CORPUSCULAR HEMOGLOBIN 32.2 pg (27.0-33.0); MEAN CORPUSCULAR HGB CONC 33.6 g/dl (32.0-36.5); MONO # 0.6 10^3/uL (0.0-0.8); MONO % 7.2 % (0.0-5.0); NEUTROPHILS # 4.4 10^3/uL (1.5-8.5); NEUTROPHILS % 57.3 % (36.0-66.0); PLATELET COUNT, AUTOMATED 241 10^3/uL (150-450); RED BLOOD COUNT 4.47 10^6/uL (4.30-6.10); WHITE BLOOD COUNT 7.8 10^3/uL (4.0-10.0)
[2019-12-08 16:29] LABS: ALBUMIN 3.6 GM/DL (3.2-5.2); ALT/SGPT 44 U/L (12-78); BILIRUBIN,TOTAL 0.5 MG/DL (0.2-1.0); BLOOD UREA NITROGEN 8 MG/DL (7-18); CALCIUM LEVEL 8.6 MG/DL (8.5-10.1); CARBON DIOXIDE LEVEL 26 MEQ/L (21-32); CHLORIDE LEVEL 111 MEQ/L (98-107); CHOLESTEROL LEVEL 165 MG/DL (<200); CREATININE FOR GFR 0.94 MG/DL (0.70-1.30); GLOMERULAR FILTRATION RATE > 60.0 (>60); GLUCOSE, FASTING 83 MG/DL (70-100); HDL CHOLESTEROL 39 MG/DL (>40); HEMOGLOBIN A1c 5.4 %; LDL CHOLESTEROL 90 MG/DL (<100); NON-HDL-C 126 MG/DL; POTASSIUM SERUM 3.9 MEQ/L (3.5-5.1); SODIUM LEVEL 142 MEQ/L (136-145); TOTAL 25(OH) VITAMIN D 32.3 NG/ML (30.0-100.0); TOTAL PROTEIN 6.7 GM/DL (6.4-8.2); TRIGLYCERIDES LEVEL 182 MG/DL (<150)
== END ==
LOC: M LAB 14:42
PROVIDERS: ATTEND Nurse Practitioner Adult Health
DX: E78.00 Pure hypercholesterolemia, unspecified (principal); E55.9 Vitamin D deficiency, unspecified; F31.9 Bipolar disorder, unspecified; F10.14 Alcohol abuse with alcohol-induced mood disorder; F20.9 Schizophrenia, unspecified; Z79.899 Other long term (current) drug therapy

== ENCOUNTER 2019-10-30 14:35 | Emergency (ER) | payer OTHER ==
[~2019-10-30] VITALS: Ht 167.6 cm; Wt 93.0 kg
[~2019-10-30 14:35] MED LIST changes: -CYCL5TAB PO
[2019-10-30 15:59] LABS: BASO # 0.1 10^3/uL (0.0-0.2); BASO % 0.6 % (0.0-1.0); EOS # 0.8 10^3/uL (0.0-0.5); EOS % 8.6 % (0.0-3.0); HEMATOCRIT 45.7 % (42.0-52.0); HEMOGLOBIN 15.2 g/dl (13.5-17.5); LYMPH # 2.2 10^3/uL (1.5-5.0); LYMPH % 24.4 % (24.0-44.0); MEAN CORPUSCULAR HEMOGLOBIN 32.1 pg (27.0-33.0); MEAN CORPUSCULAR HGB CONC 33.3 g/dl (32.0-36.5); MEAN CORPUSCULAR VOLUME 96.6 fl (80.0-96.0); MONO # 0.7 10^3/uL (0.0-0.8); MONO % 8.1 % (0.0-5.0); NEUTROPHILS # 5.2 10^3/uL (1.5-8.5); PLATELET COUNT, AUTOMATED 224 10^3/uL (150-450); RED BLOOD COUNT 4.73 10^6/uL (4.30-6.10); WHITE BLOOD COUNT 8.9 10^3/uL (4.0-10.0)
[2019-10-30 16:28] LABS: ALBUMIN 3.7 GM/DL (3.2-5.2); ALT/SGPT 43 U/L (12-78); BILIRUBIN,DIRECT < 0.1 MG/DL (0.0-0.2); BILIRUBIN,TOTAL 0.4 MG/DL (0.2-1.0)
[2019-10-30] MEDS ORDERED: CYCL5TAB PO (17:32)
[2019-10-30 17:39] VITALS: BP 129/88
--- NOTE | 2019-11-28 08:25 | REP ---
NONCONTRAST CT ABDOMEN AND PELVIS CLINICAL: Left flank pain. TECHNIQUE: Axial noncontrast images from the lung bases to the pubic symphysis with coronal and sagittal reformations. FINDINGS: Lung bases are clear. Visualized heart and pericardium normal. Liver, spleen, pancreas, collapsed gallbladder, bilateral adrenal glands, and kidneys are normal. Specifically, no acute perinephric stranding, hydroureteronephrosis, intrarenal or obstructing ureteral calculi are appreciated. The enteric system is without obstruction or acute inflammatory process. Normal terminal ileum and appendix are identified in the right lower quadrant. Pelvis demonstrates collapsed normal bladder and age appropriate prostate/seminal vesicles. No ascites. No free air. No adenopathy. Abdominal aorta without aneurysm. Musculoskeletal structures are intact. IMPRESSION: Negative noncontrast CT of the abdomen and pelvis. No acute abdominopelvic pathology appreciated. MTDD
== END 2019-10-30 17:45 | disposition home or self-care (01) ==
LOC: M ED 14:35
DX: R10.9 Unspecified abdominal pain (principal); E78.5 Hyperlipidemia, unspecified; F43.10 Post-traumatic stress disorder, unspecified; F41.9 Anxiety disorder, unspecified; F20.9 Schizophrenia, unspecified; F17.200 Nicotine dependence, unspecified, uncomplicated; F12.10 Cannabis abuse, uncomplicated; Z79.899 Other long term (current) drug therapy

== ENCOUNTER → 2020-01-25 | Outpatient (CLI) | payer OTHER ==
[~2020-01-25] MED LIST changes: +CYCL5TAB PO
[2020-01-25 13:55] LABS: BASO % 0.6 % (0.0-1.0); EOS # 0.7 10^3/uL (0.0-0.5); EOS % 9.5 % (0.0-3.0); HEMATOCRIT 45.1 % (42.0-52.0); LYMPH # 1.7 10^3/uL (1.5-5.0); LYMPH % 24.3 % (24.0-44.0); MEAN CORPUSCULAR HEMOGLOBIN 31.1 pg (27.0-33.0); MEAN CORPUSCULAR HGB CONC 33.3 g/dl (32.0-36.5); MEAN CORPUSCULAR VOLUME 93.4 fl (80.0-96.0); MONO # 0.6 10^3/uL (0.0-0.8); MONO % 8.5 % (0.0-5.0); NEUTROPHILS # 3.9 10^3/uL (1.5-8.5); NEUTROPHILS % 56.8 % (36.0-66.0); PLATELET COUNT, AUTOMATED 225 10^3/uL (150-450); RED BLOOD COUNT 4.83 10^6/uL (4.30-6.10); WHITE BLOOD COUNT 6.8 10^3/uL (4.0-10.0)
[2020-01-25 14:25] LABS: HEMOGLOBIN A1c 5.5 %
[2020-01-25 14:55] LABS: ALBUMIN 3.6 GM/DL (3.2-5.2); ALT/SGPT 36 U/L (12-78); BILIRUBIN,TOTAL 0.8 MG/DL (0.2-1.0); BLOOD UREA NITROGEN 8 MG/DL (7-18); CALCIUM LEVEL 9.2 MG/DL (8.5-10.1); CARBON DIOXIDE LEVEL 27 MEQ/L (21-32); CHLORIDE LEVEL 106 MEQ/L (98-107); CHOLESTEROL LEVEL 160 MG/DL (<200); CHOLESTEROL RISK RATIO 3.809 (<5); CREATININE FOR GFR 0.92 MG/DL (0.70-1.30); GLOMERULAR FILTRATION RATE > 60.0 (>60); GLUCOSE, FASTING 90 MG/DL (70-100); HDL CHOLESTEROL 42 MG/DL (>40); LDL CHOLESTEROL 90 MG/DL (<100); NON-HDL-C 118 MG/DL; POTASSIUM SERUM 3.6 MEQ/L (3.5-5.1); SODIUM LEVEL 141 MEQ/L (136-145); TOTAL PROTEIN 6.5 GM/DL (6.4-8.2); TRIGLYCERIDES LEVEL 138 MG/DL (<150)
== END ==
LOC: M LAB 12:44
PROVIDERS: ATTEND Nurse Practitioner Adult Health
DX: E78.00 Pure hypercholesterolemia, unspecified (principal); E55.9 Vitamin D deficiency, unspecified; F31.9 Bipolar disorder, unspecified; F10.14 Alcohol abuse with alcohol-induced mood disorder; F20.9 Schizophrenia, unspecified; Z79.899 Other long term (current) drug therapy

== ENCOUNTER → 2020-04-23 | Outpatient (CLI) | payer OTHER ==
[2020-04-23 12:24] LABS: BASO % 0.5 % (0.0-1.0); EOS # 0.7 10^3/uL (0.0-0.5); EOS % 9.7 % (0.0-3.0); HEMATOCRIT 46.2 % (42.0-52.0); HEMOGLOBIN 15.2 g/dl (13.5-17.5); LYMPH # 1.8 10^3/uL (1.5-5.0); LYMPH % 24.1 % (24.0-44.0); MEAN CORPUSCULAR HEMOGLOBIN 31.1 pg (27.0-33.0); MEAN CORPUSCULAR HGB CONC 32.9 g/dl (32.0-36.5); MEAN CORPUSCULAR VOLUME 94.7 fl (80.0-96.0); MONO # 0.6 10^3/uL (0.0-0.8); MONO % 7.3 % (2.0-8.0); NEUTROPHILS # 4.4 10^3/uL (1.5-8.5); NEUTROPHILS % 57.9 % (36.0-66.0); PLATELET COUNT, AUTOMATED 176 10^3/uL (150-450); RED BLOOD COUNT 4.88 10^6/uL (4.30-6.10); WHITE BLOOD COUNT 7.6 10^3/uL (4.0-10.0)
[2020-04-23 13:00] LABS: ALBUMIN 3.8 GM/DL (3.2-5.2); ALT/SGPT 50 U/L (12-78); BILIRUBIN,TOTAL 0.5 MG/DL (0.2-1.0); BLOOD UREA NITROGEN 11 MG/DL (7-18); CALCIUM LEVEL 9.1 MG/DL (8.5-10.1); CARBON DIOXIDE LEVEL 27 MEQ/L (21-32); CHLORIDE LEVEL 108 MEQ/L (98-107); CHOLESTEROL LEVEL 248 MG/DL (<200); CHOLESTEROL RISK RATIO 6.526 (<5); CREATININE FOR GFR 0.91 MG/DL (0.70-1.30); GLOMERULAR FILTRATION RATE > 60.0 (>60); GLUCOSE, FASTING 93 MG/DL (70-100); HDL CHOLESTEROL 38 MG/DL (>40); LDL CHOLESTEROL 170 MG/DL (<100); NON-HDL-C 210 MG/DL; POTASSIUM SERUM 4.2 MEQ/L (3.5-5.1); SODIUM LEVEL 142 MEQ/L (136-145); TOTAL PROTEIN 6.8 GM/DL (6.4-8.2); TRIGLYCERIDES LEVEL 198 MG/DL (<150)
[2020-04-23 13:12] LABS: TOTAL 25(OH) VITAMIN D 40.2 NG/ML (30.0-100.0)
[2020-04-23 13:59] LABS: HEMOGLOBIN A1c 5.5 %
== END ==
LOC: M LAB 11:47
PROVIDERS: ATTEND Nurse Practitioner Adult Health
DX: E78.00 Pure hypercholesterolemia, unspecified (principal); F20.9 Schizophrenia, unspecified; Z79.899 Other long term (current) drug therapy; E55.9 Vitamin D deficiency, unspecified

== ENCOUNTER → 2020-06-29 | Outpatient (REF) | payer OTHER ==
[2020-06-29 17:53] LABS: BASO # 0.1 10^3/uL (0.0-0.2); BASO % 0.8 % (0.0-1.0); EOS # 0.7 10^3/uL (0.0-0.5); EOS % 9.7 % (0.0-3.0); HEMATOCRIT 48.6 % (42.0-52.0); HEMOGLOBIN 15.7 g/dl (13.5-17.5); LYMPH # 1.9 10^3/uL (1.5-5.0); LYMPH % 25.7 % (24.0-44.0); MEAN CORPUSCULAR HEMOGLOBIN 31.8 pg (27.0-33.0); MEAN CORPUSCULAR HGB CONC 32.3 g/dl (32.0-36.5); MEAN CORPUSCULAR VOLUME 98.4 fl (80.0-96.0); MONO # 0.5 10^3/uL (0.0-0.8); MONO % 7.3 % (2.0-8.0); NEUTROPHILS # 4.2 10^3/uL (1.5-8.5); NEUTROPHILS % 56.1 % (36.0-66.0); PLATELET COUNT, AUTOMATED 206 10^3/uL (150-450); RED BLOOD COUNT 4.94 10^6/uL (4.30-6.10); WHITE BLOOD COUNT 7.4 10^3/uL (4.0-10.0)
[2020-06-29 18:10] LABS: ALBUMIN 3.6 GM/DL (3.2-5.2); ALT/SGPT 38 U/L (12-78); BILIRUBIN,TOTAL 0.3 MG/DL (0.2-1.0); BLOOD UREA NITROGEN 6 MG/DL (7-18); CALCIUM LEVEL 8.9 MG/DL (8.5-10.1); CARBON DIOXIDE LEVEL 27 MEQ/L (21-32); CHLORIDE LEVEL 110 MEQ/L (98-107); CREATININE FOR GFR 0.89 MG/DL (0.70-1.30); GLOMERULAR FILTRATION RATE > 60.0 (>60); GLUCOSE, FASTING 74 MG/DL (70-100); POTASSIUM SERUM 4.4 MEQ/L (3.5-5.1); SODIUM LEVEL 142 MEQ/L (136-145); TOTAL 25(OH) VITAMIN D 46.7 NG/ML (30.0-100.0); TOTAL PROTEIN 6.9 GM/DL (6.4-8.2)
[2020-06-29 18:40] LABS: HEMOGLOBIN A1c 5.4 %
== END ==
LOC: M LAB REF 17:00
PROVIDERS: ATTEND Physician Assistant
DX: E78.5 Hyperlipidemia, unspecified (principal); Z79.899 Other long term (current) drug therapy

== ENCOUNTER → 2020-07-11 | Outpatient (CLI) | payer OTHER ==
[~2020-07-11] MED LIST changes: +ABIL400I SC; +BUPR150T12 PO; +BUPR300T92 PO; +VITA50005 PO
== END ==
LOC: M LABSMTC 09:42
PROVIDERS: ATTEND Anesthesiology
DX: Z01.818 Encounter for other preprocedural examination (principal); Z11.52 Encounter for screening for COVID-19

== ENCOUNTER 2020-07-16 06:54 | Day surgery (SDC) | payer OTHER ==
[~2020-07-16] VITALS: Ht 167.6 cm; Wt 95.3 kg
[~2020-07-16 06:54] MED LIST changes: +NS 1,000 ML IV ONE
[2020-07-16] MEDS ORDERED: propofoL 500 MG/50 ML VIAL As Ordered ONE (07:23)
[2020-07-16] MEDS ORDERED: LIDOCAINE 2% 100MG/5ML SDV (FOR ANES.) As Ordered ONE (07:24)
[2020-07-16] MEDS ORDERED: fentaNYL 100 MCG/2 ML INJECTION (J3010) As Ordered ONE (07:53)
--- NOTE | 2020-07-16 08:15 | ROOR ---
Patient Name: Toni Aranda Procedure Date: 07/16/2020 7:56 AM Date of : 1975 Age: 44 Room: [facility] Gender: Male Note Status: Finalized Procedure: Upper Endoscopy + Biopsies Indications: Abnormal UGI series, Diarrhea Providers: Radames Alicia MD Referring MD: JOANNE Kelly Requesting Provider: Medicines: Monitored Anesthesia Care Complications: No immediate complications. Procedure: Pre-Anesthesia Assessment: - The heart rate, respiratory rate, oxygen saturations, blood pressure, adequacy of pulmonary ventilation, and response to care were monitored throughout the procedure. The Endoscope was introduced through the mouth, and advanced to the second part of duodenum. The upper GI endoscopy was accomplished without difficulty. The patient tolerated the procedure well. Findings: The Z-line was regular and was found 40 cm from the incisors. A small hiatal hernia was present. Localized mild inflammation characterized by congestion (edema), erosions and erythema was found on the greater curvature of the stomach. Biopsies were taken with a cold forceps for Helicobacter pylori testing. The exam of the duodenum was otherwise normal. Biopsies for histology were taken with a cold forceps in the first portion of the duodenum for evaluation of celiac disease. The exam was otherwise without abnormality. Impression: - Z-line regular, 40 cm from the incisors. - Small hiatal hernia. - Mucosal changes suspicious for gastritis. Biopsied. - The examination was otherwise normal. - Biopsies were taken with a cold forceps for evaluation of celiac disease. - The examination was otherwise normal. Recommendation: - Patient has a contact number available for emergencies. The signs and symptoms of potential delayed complications were discussed with the patient. Return to normal activities tomorrow. Written discharge instructions were provided to the patient. - High fiber diet. - Discharge patient to home. - Follow an antireflux regimen. - Continue present medications. - Await pathology results. - Telephone GI clinic for pathology results in 1 week. - Return to referring physician. - The findings and recommendations were discussed with the patient's family. Procedure Code(s): --- Professional --- 10745, Esophagogastroduodenoscopy, flexible, transoral; with biopsy, single or multiple Diagnosis Code(s): --- Professional --- K44.9, Diaphragmatic hernia without obstruction or gangrene K31.89, Other diseases of stomach and duodenum R19.7, Diarrhea, unspecified R93.3, Abnormal findings on diagnostic imaging of other parts of digestive tract CPT copyright 2019 [employer]. All rights reserved. The codes documented in this report are preliminary and upon code number stamper review may be revised to meet current compliance requirements. Radames Alicia MD Radames Alicia MD 07/16/2020 8:15:07 AM Electronically signed by Radames Alicia MD Number of Addenda: 0 Note Initiated On: 07/16/2020 7:56 AM Estimated Blood Loss: Estimated blood loss: none.
[2020-07-16] MEDS ORDERED: propofoL 200 MG/20 ML VIAL As Ordered ONE (08:18)
--- NOTE | 2020-07-16 08:35 | ROOR ---
Patient Name: Toni Aranda Procedure Date: 07/16/2020 7:57 AM Date of : 1975 Age: 44 Room: [facility] Gender: Male Note Status: Finalized Procedure: Total Colonoscopy to Cecum + ileoscopy + Bx Indications: Clinically significant diarrhea of unexplained origin Providers: Radames Alicia MD Referring MD: JOANNE Kelly Requesting Provider: Medicines: Monitored Anesthesia Care Complications: No immediate complications. Procedure: Pre-Anesthesia Assessment: - The heart rate, respiratory rate, oxygen saturations, blood pressure, adequacy of pulmonary ventilation, and response to care were monitored throughout the procedure. The Colonoscope was introduced through the anus and advanced to the terminal ileum, with identification of the appendiceal orifice and IC valve. The colonoscopy was performed without difficulty. The patient tolerated the procedure well. The quality of the bowel preparation was excellent. Findings: The perianal and digital rectal examinations were normal. Non-bleeding internal hemorrhoids were found during retroflexion. The hemorrhoids were small and Grade I (internal hemorrhoids that do not prolapse). No other significant abnormalities were identified in a careful examination of the remainder of the colon. Biopsies for histology were taken with a cold forceps from the ascending colon, transverse colon and rectosigmoid colon for evaluation of microscopic colitis. The terminal ileum appeared normal. The exam was otherwise without abnormality on direct and retroflexion views. Impression: - Non-bleeding internal hemorrhoids. - The examined portion of the ileum was normal. - The examination was otherwise normal on direct and retroflexion views. - Biopsies were taken with a cold forceps from the ascending colon, transverse colon and rectosigmoid colon for evaluation of microscopic colitis. - The exam was otherwise normal to the cecum. Recommendation: - Patient has a contact number available for emergencies. The signs and symptoms of potential delayed complications were discussed with the patient. Return to normal activities tomorrow. Written discharge instructions were provided to the patient. - High fiber diet. - Discharge patient to home. - Continue present medications. - Await pathology results. - Telephone GI clinic for pathology results in 1 week. - Repeat colonoscopy in 10 years for screening purposes. - Return to referring physician. - The findings and recommendations were discussed with the patient's family. Procedure Code(s): --- Professional --- 98903, Colonoscopy, flexible; with biopsy, single or multiple Diagnosis Code(s): --- Professional --- K64.0, First degree hemorrhoids R19.7, Diarrhea, unspecified CPT copyright 2019 [employer]. All rights reserved. The codes documented in this report are preliminary and upon bindery machine tender review may be revised to meet current compliance requirements. Radames Ailcia MD Radames Alicia MD 07/16/2020 8:35:05 AM Electronically signed by Raadmes Alicia MD Number of Addenda: 0 Note Initiated On: 07/16/2020 7:57 AM Estimated Blood Loss: Estimated blood loss: none.
[2020-07-16 12:25] VITALS: BP 123/80
== END 2020-07-16 12:34 | disposition home or self-care (01) ==
LOC: M OPP 06:54
PROVIDERS: ATTEND Internal Medicine Gastroenterology
DX: K64.0 First degree hemorrhoids (principal); R19.7 Diarrhea, unspecified; K44.9 Diaphragmatic hernia without obstruction or gangrene; K31.89 Other diseases of stomach and duodenum; R93.3 Abnormal findings on diagnostic imaging of other parts of digestive tract; K63.89 Other specified diseases of intestine
CPT/HCPCS: 43239; 45380; 88305; J3010

== ENCOUNTER → 2020-12-01 | Outpatient (CLI) | payer OTHER ==
[~2020-12-01] MED LIST changes: +ERGO500029 PO; -NS 1,000 ML IV ONE; -QUET400T PO; +QUET400T2 PO; -VITA50005 PO
--- NOTE | 2020-12-02 15:13 | ECGEPIP ---
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 No significant change compared with 10/16/2018. Electronically Signed on 12-02-2020 15:13:08 EDT by Joe Rodriguez
== END ==
LOC: M EKG 14:46
PROVIDERS: ATTEND Nurse Practitioner Psychiatric/Mental Health
DX: F25.0 Schizoaffective disorder, bipolar type (principal)

== ENCOUNTER → 2022-03-11 | Outpatient (REF) | payer OTHER ==
[2022-03-11 18:16] LABS: CHOLESTEROL RISK RATIO 4.56 (<5); HDL CHOLESTEROL 33.1 MG/DL (>40); LDL CHOLESTEROL 82.1 MG/DL (<100)
== END ==
LOC: M LAB REF 16:32
PROVIDERS: ATTEND Nurse Practitioner Family
DX: E78.5 Hyperlipidemia, unspecified (principal)

== ENCOUNTER → 2022-07-08 | Outpatient (REF) | payer OTHER ==
[2022-07-08 16:46] LABS: CHOLESTEROL RISK RATIO 4.07 (<5); HDL CHOLESTEROL 30.7 MG/DL (>40); LDL CHOLESTEROL 59.1 MG/DL (<100); NON-HDL-C 94.3 MG/DL
== END ==
LOC: M LAB REF 16:24
PROVIDERS: ATTEND Nurse Practitioner Family
DX: E78.5 Hyperlipidemia, unspecified (principal)

== ENCOUNTER → 2022-11-17 | Outpatient (REF) | payer OTHER ==
[2022-11-17 20:32] LABS: CHOLESTEROL RISK RATIO 4.6 (<5); HDL CHOLESTEROL 31.9 MG/DL (>40); LDL CHOLESTEROL 69.9 MG/DL (<100); NON-HDL-C 115.1 MG/DL
== END ==
LOC: M LAB REF 16:55
PROVIDERS: ATTEND Nurse Practitioner Family
DX: E78.5 Hyperlipidemia, unspecified (principal)

== ENCOUNTER → 2023-02-25 | Outpatient (REF) | payer OTHER ==
[2023-02-25 17:29] LABS: BASO # 0.1 10^3/uL (0.0-0.2); BASO % 0.6 % (0.0-1.0); EOS # 1.1 10^3/uL (0.0-0.5); EOS % 12.9 % (0.0-3.0); HEMATOCRIT 47.3 % (42.0-52.0); HEMOGLOBIN 16.5 g/dl (13.5-17.5); LYMPH # 2.2 10^3/uL (1.5-5.0); LYMPH % 25.7 % (24.0-44.0); MEAN CORPUSCULAR HEMOGLOBIN 34.9 pg (27.0-33.0); MEAN CORPUSCULAR HGB CONC 34.9 g/dl (32.0-36.5); MONO # 0.7 10^3/uL (0.0-0.8); MONO % 8.3 % (2.0-8.0); NEUTROPHILS # 4.4 10^3/uL (1.5-8.5); NEUTROPHILS % 52.1 % (36.0-66.0); PLATELET COUNT, AUTOMATED 211 10^3/uL (150-450); RED BLOOD COUNT 4.73 10^6/uL (4.30-6.10); WHITE BLOOD COUNT 8.5 10^3/uL (4.0-10.0)
[2023-02-25 17:48] LABS: ALKALINE PHOSPHATASE 70 U/L (46-116); ALT/SGPT 30 U/L (7.0-40); AST/SGOT 17 U/L (<34); BILIRUBIN,TOTAL 0.3 MG/DL (0.3-1.2); BLOOD UREA NITROGEN 10 MG/DL (9-23); CARBON DIOXIDE LEVEL 24 MMOL/L (20-31); CHLORIDE LEVEL 106 MMOL/L (98-107); CHOLESTEROL LEVEL 164 MG/DL (<200); CHOLESTEROL RISK RATIO 4.71 (<5); CREATININE FOR GFR 0.84 MG/DL (0.70-1.30); GLOMERULAR FILTRATION RATE > 60.0 (>60); GLUCOSE, FASTING 116 MG/DL (60-100); HDL CHOLESTEROL 34.8 MG/DL (>40); HEMOGLOBIN A1c 5.3 % (4.0-6.0); MAGNESIUM LEVEL 1.8 MG/DL (1.8-2.4); NON-HDL-C 129.2 MG/DL; POTASSIUM SERUM 4.4 MMOL/L (3.5-5.1); SODIUM LEVEL 137 MMOL/L (136-145); THYROID STIMULATING HORMONE 2.432 uIU/ML (0.55-4.78); TOTAL 25(OH) VITAMIN D 37.9 NG/ML (20.0-100.0); TOTAL PROTEIN 6.5 G/DL (5.7-8.2); TRIGLYCERIDES LEVEL 535 MG/DL (<150)
== END ==
LOC: M LAB REF 16:31
PROVIDERS: ATTEND Nurse Practitioner Family
DX: E66.9 Obesity, unspecified (principal); E78.5 Hyperlipidemia, unspecified; E55.9 Vitamin D deficiency, unspecified

== ENCOUNTER → 2023-06-15 | Outpatient (REF) | payer OTHER ==
[2023-06-15 18:37] LABS: CHOLESTEROL RISK RATIO 3.9 (<5); HDL CHOLESTEROL 34.8 MG/DL (>40); LDL CHOLESTEROL 76.4 MG/DL (<100); NON-HDL-C 101.2 MG/DL
== END ==
LOC: M LAB REF 17:21
PROVIDERS: ATTEND Nurse Practitioner Family
DX: E78.5 Hyperlipidemia, unspecified (principal)

== ENCOUNTER → 2023-10-14 | Outpatient (REF) | payer OTHER ==
[~2023-10-14] MED LIST changes: +BUPR-597 PO; -BUPR300T92 PO
[2023-10-14 14:53] LABS: CHOLESTEROL RISK RATIO 4.33 (<5); LDL CHOLESTEROL 95.4 MG/DL (<100)
== END ==
LOC: M LAB REF 13:16
PROVIDERS: ATTEND Nurse Practitioner Family
DX: E78.5 Hyperlipidemia, unspecified (principal)

== ENCOUNTER → 2023-10-15 | Outpatient (REF) | payer OTHER ==
[2023-10-16 13:32] LABS: BASO # 0.1 10^3/uL (0.0-0.2); BASO % 0.7 % (0.0-1.0); EOS # 0.6 10^3/uL (0.0-0.5); EOS % 7.1 % (0.0-3.0); HEMATOCRIT 47.1 % (42.0-52.0); HEMOGLOBIN 16.2 g/dl (13.5-17.5); LYMPH # 1.9 10^3/uL (1.5-5.0); LYMPH % 23.2 % (24.0-44.0); MEAN CORPUSCULAR HEMOGLOBIN 34.1 pg (27.0-33.0); MEAN CORPUSCULAR HGB CONC 34.4 g/dl (32.0-36.5); MEAN CORPUSCULAR VOLUME 99.2 fl (80.0-96.0); MONO # 0.7 10^3/uL (0.0-0.8); MONO % 8.6 % (2.0-8.0); NEUTROPHILS # 4.8 10^3/uL (1.5-8.5); NEUTROPHILS % 59.8 % (36.0-66.0); PLATELET COUNT, AUTOMATED 198 10^3/uL (150-450); RED BLOOD COUNT 4.75 10^6/uL (4.30-6.10); WHITE BLOOD COUNT 8.1 10^3/uL (4.0-10.0)
[2023-10-16 13:37] LABS: ALKALINE PHOSPHATASE 65 U/L (46-116); ALT/SGPT 37 U/L (7.0-40); AST/SGOT 22 U/L (<34); BILIRUBIN,TOTAL 0.6 MG/DL (0.3-1.2); BLOOD UREA NITROGEN 10 MG/DL (9-23); CALCIUM LEVEL 9.2 MG/DL (8.5-10.1); CARBON DIOXIDE LEVEL 27 MMOL/L (20-31); CHLORIDE LEVEL 107 MMOL/L (98-107); CHOLESTEROL LEVEL 171 MG/DL (<200); CHOLESTEROL RISK RATIO 5.07 (<5); GLOMERULAR FILTRATION RATE > 60.0 (>60); GLUCOSE, FASTING 86 MG/DL (60-100); HDL CHOLESTEROL 33.7 MG/DL (>40); LDL CHOLESTEROL 86.5 MG/DL (<100); MAGNESIUM LEVEL 1.8 MG/DL (1.8-2.4); NON-HDL-C 137.3 MG/DL; POTASSIUM SERUM 3.8 MMOL/L (3.5-5.1); SODIUM LEVEL 138 MMOL/L (136-145); TOTAL PROTEIN 6.6 G/DL (5.7-8.2); TRIGLYCERIDES LEVEL 254 MG/DL (<150)
[2023-10-16 13:39] LABS: THYROID STIMULATING HORMONE 2.057 uIU/ML (0.55-4.78)
[2023-10-16 13:50] LABS: HEMOGLOBIN A1c 5.6 % (4.0-6.0)
[2023-10-16 14:16] LABS: HEPATITIS C VIRUS ABY INDEX < 0.02 INDEX (<0.8)
== END ==
LOC: M LAB REF 12:13
PROVIDERS: ATTEND Nurse Practitioner Family
DX: M79.89 Other specified soft tissue disorders (principal); E66.9 Obesity, unspecified; Z11.59 Encounter for screening for other viral diseases; Z11.3 Encounter for screening for infections with a predominantly sexual mode of transmission

== ENCOUNTER → 2023-10-18 | Outpatient (CLI) | payer OTHER | LOC: M RAD 14:54 | PROVIDERS: ATTEND Nurse Practitioner Family | DX: M79.89 Other specified soft tissue disorders (principal) ==

== ENCOUNTER → 2024-01-11 | Outpatient (REF) | payer OTHER ==
[~2024-01-11] MED LIST changes: -CYCL5TAB PO; +CYCL5TAB4 PO
[2024-01-11 19:12] LABS: CHOLESTEROL RISK RATIO 6.5 (<5); HDL CHOLESTEROL 33.8 MG/DL (>40); LDL CHOLESTEROL 155.6 MG/DL (<100); NON-HDL-C 186.2 MG/DL
== END ==
LOC: M LAB REF 16:44
PROVIDERS: ATTEND Nurse Practitioner Family
DX: E78.5 Hyperlipidemia, unspecified (principal)

== ENCOUNTER → 2024-04-13 | Outpatient (REF) | payer OTHER ==
[2024-04-13 17:36] LABS: ALBUMIN 3.4 G/DL (3.2-5.2); ALKALINE PHOSPHATASE 67 U/L (40-129); ALT/SGPT 26 U/L (7.0-40); AST/SGOT 20 U/L (<34); BILIRUBIN,TOTAL 0.5 MG/DL (0.3-1.2); BLOOD UREA NITROGEN 8 MG/DL (9-23); CALCIUM LEVEL 9.6 MG/DL (8.5-10.1); CARBON DIOXIDE LEVEL 27 MMOL/L (20-31); CHLORIDE LEVEL 109 MMOL/L (98-107); CHOLESTEROL LEVEL 208 MG/DL (<200); CHOLESTEROL RISK RATIO 4.94 (<5); GLOMERULAR FILTRATION RATE > 60.0 (>60); GLUCOSE, FASTING 93 MG/DL (60-100); HDL CHOLESTEROL 42.1 MG/DL (>40); LDL CHOLESTEROL 123.9 MG/DL (<100); NON-HDL-C 165.9 MG/DL; POTASSIUM SERUM 4.9 MMOL/L (3.5-5.1); SODIUM LEVEL 144 MMOL/L (136-145); TOTAL PROTEIN 6.7 G/DL (5.7-8.2); TRIGLYCERIDES LEVEL 210 MG/DL (<150)
== END ==
LOC: M LAB REF 16:57
PROVIDERS: ATTEND Nurse Practitioner Family
DX: E78.5 Hyperlipidemia, unspecified (principal)

== ENCOUNTER → 2024-07-12 | Outpatient (REF) | payer OTHER ==
[~2024-07-12] MED LIST changes: -BUPR-597 PO; +BUPR-766 PO
[2024-07-12 13:30] LABS: CHOLESTEROL RISK RATIO 3.86 (<5); HDL CHOLESTEROL 40.9 MG/DL (>40); LDL CHOLESTEROL 78.9 MG/DL (<100); NON-HDL-C 117.1 MG/DL
== END ==
LOC: M LAB REF 12:08
PROVIDERS: ATTEND Nurse Practitioner Family
DX: E78.5 Hyperlipidemia, unspecified (principal)

== ENCOUNTER → 2024-07-14 | Outpatient (REF) | payer OTHER ==
[2024-07-14 21:04] LABS: Trichomonas vaginalis (AMP) NOT DETECTED (NEGATIVE)
[2024-07-14 21:28] LABS: GC DNA AMPLIFICATION NEGATIVE (NEGATIVE)
== END ==
LOC: M LAB REF 17:30
PROVIDERS: ATTEND Nurse Practitioner Family
DX: Z11.3 Encounter for screening for infections with a predominantly sexual mode of transmission (principal)

== ENCOUNTER → 2024-10-06 | Outpatient (CLI) | payer OTHER ==
[~2024-10-06] MED LIST changes: -ABIL400I SC; +ARIP400S SC; -DEPA250T32 PO; +DIVA-41 PO; +DIVA-65 PO; -DIVA500T94 PO
== END ==
LOC: M WUC 11:42
PROVIDERS: ATTEND Student in an Organized Health Care Education/Training Program
DX: M79.674 Pain in right toe(s) (principal); M21.611 Bunion of right foot; M20.11 Hallux valgus (acquired), right foot

== ENCOUNTER → 2024-10-24 | Outpatient (REF) | payer OTHER ==
[2024-10-24 15:36] LABS: ALT/SGPT 22 U/L (7.0-40); AST/SGOT 19 U/L (<34); BASO # 0.0 10^3/uL (0.0-0.2); BASO % 0.4 % (0.0-1.0); CALCIUM LEVEL 9.3 MG/DL (8.5-10.1); CARBON DIOXIDE LEVEL 25 MMOL/L (20-31); CHLORIDE LEVEL 110 MMOL/L (98-107); CHOLESTEROL LEVEL 160 MG/DL (<200); CHOLESTEROL RISK RATIO 4.08 (<5); CREATININE FOR GFR 0.73 MG/DL (0.70-1.30); EOS # 0.5 10^3/uL (0.0-0.5); EOS % 5.8 % (0.0-3.0); GLOMERULAR FILTRATION RATE > 90.0 (>60); LDL CHOLESTEROL 107.0 MG/DL (<100); LYMPH # 1.5 10^3/uL (1.5-5.0); LYMPH % 18.8 % (24.0-44.0); MAGNESIUM LEVEL 1.9 MG/DL (1.8-2.4); MONO # 0.9 10^3/uL (0.0-0.8); MONO % 11.3 % (2.0-8.0); NEUTROPHILS # 5.1 10^3/uL (1.5-8.5); NEUTROPHILS % 63.4 % (36.0-66.0); NON-HDL-C 120.8 MG/DL; PLATELET COUNT, AUTOMATED 278 10^3/uL (150-450); POTASSIUM SERUM 4.1 MMOL/L (3.5-5.1); SODIUM LEVEL 142 MMOL/L (136-145); TOTAL 25(OH) VITAMIN D 42.8 NG/ML (20.0-100.0); TRIGLYCERIDES LEVEL 69 MG/DL (<150)
[2024-10-24 16:34] LABS: ESTIMATED AVERAGE GLUCOSE 103.0 MG/DL (60-110)
== END ==
LOC: M LAB REF 14:33
PROVIDERS: ATTEND Pediatrics
DX: E66.9 Obesity, unspecified (principal); E55.9 Vitamin D deficiency, unspecified; E78.5 Hyperlipidemia, unspecified

== ENCOUNTER → 2024-10-28 | Outpatient (CLI) | payer OTHER | LOC: M PLARAD 14:48 | PROVIDERS: ATTEND Student in an Organized Health Care Education/Training Program | DX: M25.362 Other instability, left knee (principal) ==